=== PATIENT | male | born 1965 | race Caucasian/White ===

== ENCOUNTER 2017-03-01 11:14 | Emergency (ER) | payer OTHER ==
[~2017-03-01] VITALS: Ht 182.9 cm; Wt 115.2 kg
[~2017-03-01 11:14] MED LIST: MECL1TAB42 PO; METF-384 PO; OMEP20TA PO; ONDA4TAB46 PO; TRIA75TA53 PO
[2017-03-01 11:17] VITALS: TEMP 36.3; Ht 182.9 cm; Wt 115.2 kg
--- NOTE | 2017-03-01 11:49 | EMERGENCY ROOM VISIT NOTE ---
ED Visit Note First contact with patient: 11:21 CHIEF COMPLAINT: Eye pain HISTORY OF PRESENT ILLNESS: This 51-year-old male patient presents to the emergency department ambulatory complaining of pain in the left eye . The patient was at work and states that he got hydrated Lyme in his left eye. There has been a constant moderate pain and irritation, redness and tearing in the eye. There is a mild blurring of vision at times and light bothers the eye. The vision has not been decreased over all. The patient does not wear contacts. The patient rates the pain as irritating and 0/10. The patient has flushed the eye with 1 L of water. The patient has not had previous injuries to this eye. The patient states his tetanus is up-to-date. REVIEW OF SYSTEMS: A 6 system review of systems was completed with positives and pertinent negatives listed in the HPI. ALLERGIES: No known drug allergies MEDICATIONS: See nursing notes PMH: GERD, diabetes SOCIAL HISTORY: The patient is employed. He is a smoker PHYSICAL EXAM: Vital Signs: Reviewed Nurse's notes, vital signs stable. Visual acuity 20/20 bilaterally without correction. GENERAL: This is a 51-year-old male, in no acute distress, but who is uncomfortable from the eye problem. Well -developed well-nourished. EYES: The pupils are equal round and reactive to light and accommodation. EOMs are full and without tenderness. There is discharge of clear tears from the left eye which is injected. There is no foreign body visible under the eyelid even after lid eversion. Funduscopic exam reveals no hemorrhages, papilledema, or other abnormalities. No foreign body was seen embedded in the cornea under slit lamp exam. The cornea was clear and no hyphema was seen. Fluorescein uptake was observed with ultraviolet light and reveals uptake over the bottom of the eye around 12:00. EMERGENCY DEPARTMENT COURSE: I examined the patient. Alcaine 2 drops were placed in the patient's left eye. A slit lamp exam was performed as above. Ciloxan two drops was placed in the patient's left eye. I discussed the case with poison control who recommended irrigation and follow-up with ophthalmology if symptoms are severe. I discussed the case with Dr. Pinto who recommends antibiotic drops and follow-up with ophthalmology. The patient was irrigated with 1 L normal saline using a Antolin lens. He will be given Floxin drops and a small prescription for Percocet. He should contact ophthalmology for a follow -up appointment. He should return with worsening symptoms. The patient was discharged home in good condition. DISCHARGE INSTRUCTIONS AND TREATMENT: Use Ciloxan two drops in left eye every two hours while awake for two days; then two drops every four hours while awake for three days. Use Ibuprofen 600 mg every 6 hrs as needed for moderate pain. Percocet 1-2 tablet every 4-6 hours as needed for worse pain. No driving or alcohol use with Percocet and do not take with Tylenol. Contact ophthalmology today for a follow-up appointment in 24-48 hours Return with worsening symptoms Problem List Medical Problems: (1) Diabetes Status: Chronic (2) Hypertension Status: Chronic (3) Vertigo Status: Chronic (4) Vomiting Status: Chronic Surgical Problems: (1) History of appendectomy Status: Resolved (2) Hx of cholecystectomy Status: Resolved Current/Historical Medications Scheduled Atorvastatin (Lipitor), 10 MG PO DAILY Metformin Hcl (Glucophage), 1,000 MG PO BID Omeprazole (Omeprazole), 1 TAB PO DAILY Triamterene/Hctz (Triamterene/Hctz 37.5-25MG), 1 TAB PO DAILY Scheduled PRN Meclizine Hcl (Meclizine Hcl), 1 TAB PO TID PRN for DIZZINESS Oxycodone/Acetaminophen 5MG/325MG (Percocet 5MG/325MG), 1 TAB PO Q4H PRN for Pain Allergies Coded Allergies: No Known Allergies (Unverified , 03/01/17) Vital Signs Date Time Temp Pulse Resp B/P Pulse Ox O2 Delivery O2 Flow Rate FiO2 03/01/17 13:24 84 16 155/74 97 03/01/17 11:17 36.3 92 18 176/107 96 Room Air Medications Administered Medications (Trade) Dose Ordered Sig/Ha Route Start Time Stop Time Status Last Admin Dose Admin Proparacaine HCl (Alcaine 0.5% Oph Soln) 225 drops STK-MED ONCE .ROUTE 03/01/17 12:01 03/01/17 12:02 DC 03/01/17 11:58 225 DROPS Ciprofloxacin HCl (Ciprofloxacin 0.3% Op Soln) 2 drops NOW ONCE OP 03/01/17 13:15 03/01/17 13:16 DC 03/01/17 13:19 2 DROPS Departure Information Impression Primary Impression: Corneal abrasion Additional Impression: Chemical keratoconjunctivitis Dispostion Home / Self-Care Condition GOOD Prescriptions Oxycodone/Acetaminophen 5MG/325MG (PERCOCET 5MG/325MG) Tab 1 TAB PO Q4H Y for Pain, #18 TAB For Initial Treatment Prov: Nina Figueroa PA-C 03/01/17 Referrals Yocasta Ncie M.D. (PCP) Yifan Pinto D.O. Forms HOME CARE DOCUMENTATION FORM, IMPORTANT VISIT INFORMATION, WORK / SCHOOL INSTRUCTIONS Patient Instructions Corneal Injury, My [facility] [employer] Additional Instructions Use Ciloxin two drops in left eye every two hours while awake for two days; then two drops every four hours while awake for three days. Use Ibuprofen 600 mg every 6 hrs as needed for moderate pain. Percocet 1-2 tablet every 4-6 hours as needed for worse pain. No driving or alcohol use with Percocet and do not take with Tylenol. Contact ophthalmology today for a follow-up appointment in 24-48 hours Return with worsening symptoms Work Instructions Return To Work: 3 days Problem Qualifiers Primary Impression: Corneal abrasion Encounter type: initial encounter Laterality: left Qualified Codes: S05.02XA - Injury of conjunctiva and corneal abrasion without foreign body, left eye, initial encounter Additional Impression: Chemical keratoconjunctivitis Laterality: left Qualified Codes: H16.292 - Other keratoconjunctivitis, left eye
[2017-03-01] MEDS ORDERED: PROPARACAINE HCL 0.5% OP SOLN 15 ML BTL ONE (12:01)
[2017-03-01] MEDS ORDERED: TRIATAB3 PO (12:09)
[2017-03-01] MEDS ORDERED: ATOR10TA82 PO (12:09)
[2017-03-01] MEDS ORDERED: OXYC-57 PO (13:14)
[2017-03-01] MEDS ORDERED: CIPROFLOXACIN HCL 0.3% OP SOLN 2.5 ML BTL OP ONE (13:15)
[2017-03-01 13:24] VITALS: BP 155/74; PULSE 84; O2SAT 97
== END 2017-03-01 13:25 | disposition home or self-care (01) ==
LOC: C.EDB 11:15 → C.EDD 13:25
DX: S05.02XA Injury of conjunctiva and corneal abrasion without foreign body, left eye, initial encounter (principal); T26.82XA Corrosions of other specified parts of left eye and adnexa, initial encounter; Y99.0 Civilian activity done for income or pay; X58.XXXA Exposure to other specified factors, initial encounter; E11.9 Type 2 diabetes mellitus without complications; F17.200 Nicotine dependence, unspecified, uncomplicated; I10 Essential (primary) hypertension; K21.9 Gastro-esophageal reflux disease without esophagitis

== ENCOUNTER → 2017-05-19 | Outpatient (CLI) | payer OTHER ==
[~2017-05-19] MED LIST changes: +ATOR10TA88 PO; -ONDA4TAB46 PO; +OXYC-57 PO; -TRIA75TA53 PO; +TRIATAB3 PO
[2017-05-19 13:00] LABS: ESTIMATED AVERAGE GLUCOSE 131 mg/dl; HA1C FLAG Normal (Normal)
[2017-05-19 13:07] LABS: ALT/SGPT 27 U/L (12-78); BLOOD UREA NITROGEN 13 mg/dl (7-18); CALCIUM 8.5 mg/dl (8.5-10.1); CARBON DIOXIDE 26 mmol/L (21-32); CHLORIDE 105 mmol/L (98-107); CHOLESTEROL 185 mg/dl (0-200); CREATININE 0.95 mg/dl (0.60-1.40); GLUCOSE 114 mg/dl (70-99); SODIUM 138 mmol/L (136-145)
[2017-05-19 13:10] LABS: ALB/GLOB RATIO 1.1 (0.9-2); ALKALINE PHOSPHATASE 89 U/L (45-117); AST/SGOT 12 U/L (15-37); CHOLESTEROL/HDL RATIO 5.3; HDL CHOLESTEROL 35 mg/dl; LDL CHOLESTEROL CALCULATED 117 mg/dl; TRIGLYCERIDES 163 mg/dl (0-150); VERY LOW DENSITY LIPOPROT CALC 33 mg/dl
== END | disposition home or self-care (01) ==
LOC: C.LABPVFM 07:39
PROVIDERS: ATTEND Family Medicine
DX: E78.5 Hyperlipidemia, unspecified (principal); K21.9 Gastro-esophageal reflux disease without esophagitis; I10 Essential (primary) hypertension; Z12.11 Encounter for screening for malignant neoplasm of colon

== ENCOUNTER 2017-08-20 15:58 | Emergency (ER) | payer OTHER ==
[~2017-08-20] VITALS: Ht 182.9 cm; Wt 112.5 kg
[2017-08-20 16:11] VITALS: TEMP 36.9; Ht 182.9 cm; Wt 112.5 kg
--- NOTE | 2017-08-20 17:25 | DIAGNOSTIC IMAGING REPORT ---
R KNEE 3 VIEWS HISTORY: 52 years-old Male R knee pain, tripped of cord onto knee acute right knee pain status post trauma and fall. COMPARISON: None available TECHNIQUE: 3 views of the right knee FINDINGS: Mild tricompartmental osteoarthritis is most pronounced within the patellofemoral joint. There is spurring about the superior patella at the quadriceps insertion site. There is moderate to extensive soft tissue swelling about the knee with small joint effusion. No opaque foreign body. IMPRESSION: 1. Mild tricompartmental osteoarthritis without acute fracture or dislocation. 2. Moderate to extensive soft tissue swelling about the knee with small joint effusion. The above report was generated using voice recognition software. It may contain grammatical, syntax or spelling errors. Electronically signed by: Grant Bain M.D. 08/20/2017 5:24 PM Dictated Date/Time: 08/20/2017 5:22 PM
[2017-08-20 17:56] VITALS: BP 145/107; PULSE 100; O2SAT 96
--- NOTE | 2017-08-21 00:58 | EMERGENCY ROOM VISIT NOTE ---
ED Visit Note First contact with patient: 16:16 Chief Complaint: I tripped and fell and injured my right knee. History of Present Illness: Mr. Gama is a 52-year-old white male who ambulates into the ED with a limp and accompanied by his complaining of right anterior knee pain. 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 He denies any lightheadedness or dizziness before the fall and at the time of fall he did not strike his head. Currently he is complaining of anterior right knee pain over the distal femur and patella. He describes the pain as a sharp and throbbing sensation. He rates his discomfort 6/10. The pain is nonradiating. The pain worsens with the last few degrees of extension, flexion beyond 80 and palpation of the anterior knee. He has not identified any alleviating factors related to the pain. He has not taken medications for pain prior to arrival at the hospital. Associated with his pain he has noted moderate swelling over the anterior knee and has an abrasion just above his patella and over his second toe from his fall. He denies any back pain, hip pain, proximal thigh pain, lower leg pain, ankle pain, foot pain, leg weakness/numbness/tingling. Additionally he denies any previous significant injuries or surgeries to his knee. Review of Systems: As noted above in history of present illness. Past Medical History: Diabetes, hypertension, asthma, abdominal hernia, status post unspecified right elbow surgery and unspecified back surgery. Current Medications: Glucophage, Lipitor, meclizine, omeprazole, Triamterene/ HCTZ. Allergies to Medications: Patient denies. Social History: Patient is currently employed; he lives with his and feels safe in his home environment; he denies tobacco use and admits to alcohol use. Tetanus Immunization Status: Patient reports up-to-date. Physical Examination: Vital Signs: Date Time Temp Pulse Resp B/P (MAP) Pulse Ox O2 Delivery O2 Flow Rate FiO2 08/20/17 17:56 100 20 145/107 96 08/20/17 16:11 36.9 119 20 150/84 95 Room Air GENERAL: 52-year-old male in mild distress due to pain, nontoxic-appearing, afebrile and hemodynamically stable. NEUROLOGICAL: Awake, alert and oriented to person, place and time. Answering questions appropriately and following commands. SKIN: Warm, dry and pink. Right Knee: Patient has a nickel-sized superficial abrasion over the anterior superior aspect of the knee no active bleeding. Right foot: Small 2-3 mm abrasion over the dorsal aspect of the second toe without active bleeding. RIGHT LOWER EXTREMITY: No gross bony deformity. No shortening or malrotation. No tenderness in the hip, proximal thigh, lower leg, ankle or foot. Patient has a large contusion/hematoma just superior and slightly lateral to the patella with an associated abrasion is noted above. The contusion/hematoma measures approximately 6-7 cm. His knee examination shows this large hematoma but he has no bony or underlying muscular tenderness. There is no ligamentous laxity of the cruciate or collateral ligaments. He does have moderate decreased range of motion motion in the last few degrees of extension but only has about 80 of flexion because of pain and swelling. Because of his apprehension a Rafa's test was not able to be performed. Throughout the lower leg there is no tenderness and there is no swelling. Distal pulses, capillary refill and sensation is intact. There is no bulging of the compartments of the lower leg. ED Course: Patient is assessed as noted above. Patient's medication list was reviewed. Patient was offered pain medication and refused but he was given ice for pain and comfort. Right Knee X-Rays: Were read by myself and the radiologist and shows mild tricompartmental osteoarthritis without fracture dislocation. Moderate to extensive soft tissue swelling about the knee with a small joint effusion. Patient had an Santiago bandage wrapped around his contused area for compression. He was offered nonweight bearing crutches but reported he had crutches at home that he did use for previous lower extremity injury. Patient was educated about today's findings and instructed on his treatment plan ; he verbalized understanding and agreement with this plan. Clinical Impression: Contusion/hematoma of the right knee. Knee and toe abrasion. Status post fall. Disposition: Patient discharged home in stable condition accompanied by his ; prior to departure he was reassessed and subjectively reported he was feeling better and rated his discomfort 3/10. Plan: Patient was encouraged to alternate ibuprofen and acetaminophen as needed for pain every 3 hours. Patient was encouraged use ice over areas of pain and swelling 4-5 times a day for 20-30 minutes. Patient was encouraged use Santiago bandage for compression and his crutches at home for nonweightbearing ambulation for 3-6 days or until pain free. Comfort measures, wound care and signs of infection were discussed with the patient. Patient was encouraged to follow-up with orthopedic physician if no better in 7- 10 days. Patient was signed off of work for 3 days. Patient was encouraged to follow-up with family physician or return to the ED for any signs of infection, uncontrolled pain or any new/concerning symptoms.
== END 2017-08-20 17:58 | disposition home or self-care (01) ==
LOC: C.EDB 15:59 → C.EDD 17:58
DX: S80.01XA Contusion of right knee, initial encounter (principal); S80.211A Abrasion, right knee, initial encounter; W01.0XXA Fall on same level from slipping, tripping and stumbling without subsequent striking against object, initial encounter; I10 Essential (primary) hypertension; E11.9 Type 2 diabetes mellitus without complications; J45.909 Unspecified asthma, uncomplicated; Z79.899 Other long term (current) drug therapy; Z98.890 Other specified postprocedural states

== ENCOUNTER 2017-12-02 11:45 | Inpatient (IN) | payer OTHER ==
[2017-12-02] VITALS (18 sets, daily range): BP systolic 94–158; BP diastolic 60–87; PULSE 84–170; TEMP 36.6–37; O2SAT 91–97; Ht 182.9 cm; Wt 106.2 kg
[~2017-12-02] VITALS: Ht 182.9 cm; Wt 106.2 kg
[~2017-12-02 11:45] MED LIST changes: +ATOR10TA82 PO; -ATOR10TA88 PO; -OXYC-57 PO
[2017-12-02] MEDS ORDERED: METOPROLOL TARTRATE 1 MG/ML VIAL IV STA (12:01)
[2017-12-02] MEDS ORDERED: ASPIRIN 324 MG CHEW PO STA (12:01)
[2017-12-02] MEDS ORDERED: DILTIAZEM BOLUS / DRIP IV STA ×2 (12:06→13:19)
[2017-12-02] MEDS ORDERED: DILTIAZEM HCL 5 MG/ML 5 ML VIAL IV STA ×2 (12:06)
[2017-12-02] MEDS ORDERED: ONDANSETRON INJ 2 MG/ML 2 ML VIAL IV STA (12:07)
--- NOTE | 2017-12-02 12:13 | EMERGENCY ROOM VISIT NOTE ---
History Report prepared by Sheryl: Aris George Under the Supervision of: Dr. Christiano Costa M.D. 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 He notes that his heart has been racing. His heart rate is currently 183. He notes diaphoresis, cough, nausea, vomiting, and shortness of breath. The patient states that he has used his inhaler more often than usual yesterday. He has a history of DM, HTN, and asthma. He does not see a director of outreach. He has never had a stress test. He has a family history of myocardial infarction. He denies a history of smoking. He denies any chest pain. 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 A total of 10 systems reviewed and were otherwise negative. Past Medical & Surgical Medical Problems: (1) Asthma (2) Chemical keratoconjunctivitis (3) Corneal abrasion (4) Diabetes (5) Hypertension (6) New onset a-fib (7) Vertigo (8) Vomiting Surgical Problems: (1) History of appendectomy (2) Hx of cholecystectomy Family History Diabetes mellitus Heart disease Lung disease Social History Smoking Status: Never Smoker Smokeless Tobacco Use: No Alcohol Use: occasionally Drug Use: none Marital Status: Housing Status: lives with family Occupation Status: employed Current/Historical Medications Scheduled Atorvastatin (Lipitor), 1 TAB PO DAILY Metformin Hcl (Glucophage), 1,000 MG PO BID Omeprazole (Omeprazole), 1 TAB PO DAILY Triamterene/Hctz (Triamterene/Hctz 37.5-25MG), 1 TAB PO DAILY Scheduled PRN Albuterol Hfa (Ventolin Hfa), 1-2 PUFFS INH Q6H PRN for SOB/Wheezing Meclizine Hcl (Meclizine Hcl), 1 TAB PO TID PRN for DIZZINESS Allergies Coded Allergies: No Known Allergies (Unverified , 12/02/17) Physical Exam Vital Signs Date Time Temp Pulse Resp B/P (MAP) Pulse Ox O2 Delivery O2 Flow Rate FiO2 12/02/17 13:00 129 100/62 95 Room Air 12/02/17 12:56 114 118/79 93 Room Air 12/02/17 12:52 119 12/02/17 12:44 114 125/76 95 Room Air 12/02/17 12:31 127 131/76 94 Room Air 12/02/17 12:25 102/77 12/02/17 12:21 120 15 94 12/02/17 12:16 122/72 12/02/17 12:15 112 18 92 12/02/17 12:11 97 Room Air 12/02/17 12:11 97 Room Air 12/02/17 12:10 99 16 127/77 94 12/02/17 12:05 170 22 149/98 12/02/17 12:04 180 12/02/17 12:01 145/96 12/02/17 11:51 36.4 80 20 128/77 95 Room Air Physical Exam GENERAL: Patient is a healthy-appearing well-nourished male. HEAD: Normocephalic atraumatic EYES: Ocular movements intact pupils equal and react to light OROPHARYNX mucous membranes are moist no exudates present no erythema or edema present NECK: Supple no nuchal rigidity CHEST: Good equal expansion LUNGS: Clear and equal to auscultation CARDIAC: Normal S1 and S2 ABDOMEN: Soft nontender no guarding BACK: No CVA tenderness EXTREMITIES: No pain upon palpation normal muscle strength in all groups no clubbing cyanosis or edema NEURO: Patient is following commands and answering questions appropriately. Alert and oriented x3 Cranial Nerves 2-12 grossly intact Medical Decision & Procedures ER Provider Diagnostic Interpretation: Radiology results as stated below per my review and radiologist interpretation: CHEST ONE VIEW PORTABLE CLINICAL HISTORY: CHEST PAIN COMPARISON STUDY: 01/10/2016 FINDINGS: Mild cardiomegaly. Prominent pulmonary vasculature. Diaphragms are smooth. No focal infiltrate. IMPRESSION: Findings suggesting pulmonary vascular congestion with no evidence for [place] pulmonary edema. No focal infiltrate. The above report was generated using voice recognition software. It may contain grammatical, syntax or spelling errors. Electronically signed by: Kerwin Montes De Oca M.D. 12/02/2017 12:18 PM Dictated Date/Time: 12/02/2017 12:17 PM Laboratory Results 12/02/17 12:02 Red Blood Count 5.58, Mean Corpuscular Volume 77.6, Mean Corpuscular Hemoglobin 26.0, Mean Corpuscular Hemoglobin Concent 33.5, Mean Platelet Volume 10.6, Neutrophils (%) (Auto) 86.4, Lymphocytes (%) (Auto) 8.4, Monocytes (%) (Auto) 4.4, Eosinophils (%) (Auto) 0.4, Basophils (%) (Auto) 0.1, Neutrophils # (Auto) 11.66, Lymphocytes # (Auto) 1.13, Monocytes # (Auto) 0.59, Eosinophils # (Auto) 0.06, Basophils # (Auto) 0.02 12/02/17 12:02 Test 12/02/17 12:02 12/02/17 12:09 12/02/17 12:21 White Blood Count 13.50 K/uL (4.8-10.8) Red Blood Count 5.58 M/uL (4.7-6.1) Hemoglobin 14.5 g/dL (14.0-18.0) Hematocrit 43.3 % (42-52) Mean Corpuscular Volume 77.6 fL (80-100) Mean Corpuscular Hemoglobin 26.0 pg (25-34) Mean Corpuscular Hemoglobin Concent 33.5 g/dl (32-36) Platelet Count 333 K/uL (130-400) Mean Platelet Volume 10.6 fL (7.4-10.4) Neutrophils (%) (Auto) 86.4 % Lymphocytes (%) (Auto) 8.4 % Monocytes (%) (Auto) 4.4 % Eosinophils (%) (Auto) 0.4 % Basophils (%) (Auto) 0.1 % Neutrophils # (Auto) 11.66 K/uL (1.4-6.5) Lymphocytes # (Auto) 1.13 K/uL (1.2-3.4) Monocytes # (Auto) 0.59 K/uL (0.11-0.59) Eosinophils # (Auto) 0.06 K/uL (0-0.5) Basophils # (Auto) 0.02 K/uL (0-0.2) RDW Standard Deviation 42.5 fL (36.4-46.3) RDW Coefficient of Variation 15.1 % (11.5-14.5) Immature Granulocyte % (Auto) 0.3 % Immature Granulocyte # (Auto) 0.04 K/uL (0.00-0.02) Prothrombin Time 10.8 SECONDS (9.0-12.0) Prothromb Time International Ratio 1.0 (0.9-1.1) Activated Partial Thromboplast Time 28.8 SECONDS (21.0-31.0) Partial Thromboplastin Ratio 1.1 Est Creatinine Clear Calc Drug Dose 99.9 ml/min Estimated GFR () 86.7 Estimated GFR (Non- 74.8 BUN/Creatinine Ratio 16.1 (10-20) Calcium Level 8.6 mg/dl (8.5-10.1) Total Bilirubin 0.6 mg/dl (0.2-1) Direct Bilirubin 0.2 mg/dl (0-0.2) Aspartate Amino Transf (AST/SGOT) 8 U/L (15-37) Alanine Aminotransferase (ALT/SGPT) 28 U/L (12-78) Alkaline Phosphatase 96 U/L (45-117) Total Creatine Kinase 48 U/L (39-308) Creatine Kinase MB 0.6 ng/ml (0.5-3.6) Creatine Kinase MB Ratio 1.3 (0-3.0) Pro-B-Type Natriuretic Peptide 1740 pg/ml (0-900) Total Protein 7.1 gm/dl (6.4-8.2) Albumin 3.6 gm/dl (3.4-5.0) Lipase 64 U/L (73-393) Bedside Hemoglobin 15.3 g/dl (14.0-18.0) Bedside Hematocrit 45 % (42-52) Bedside Sodium 138 mEq/L (135-144) Bedside Potassium 4.1 mEq/L (3.3-5.0) Bedside Chloride 102 mEq/L (101-112) Bedside Total CO2 22 mEq/l (24-31) Anion Gap 19.0 mmol/L (16-25) Bedside Blood Urea Nitrogen 19 mg/dl (7-18) Bedside Creatinine 0.9 mg/dl (0.6-1.3) Bedside Glucose (other) 147 mg/dl (70-99) Bedside Ionized Calcium (Estefania) 1.13 mmol/l (1.12-1.32) Influenza Type A Antigen Neg for Influ A (NEG) Influenza Type B Antigen Neg for Influ B (NEG) Labs reviewed by ED physician. Medications Administered Medications (Trade) Dose Ordered Sig/Ha Route Start Time Stop Time Status Last Admin Dose Admin Aspirin (Aspirin Chew) 324 mg NOW STAT PO 12/02/17 12:01 12/02/17 12:05 DC 12/02/17 12:12 324 MG Diltiazem HCl (Cardizem Inj) 39 mg NOW STAT IV 12/02/17 12:06 12/02/17 12:08 DC 12/02/17 12:28 39 MG Diltiazem HCl (Cardizem Inj) 28 mg NOW STAT IV 12/02/17 12:06 12/02/17 12:08 DC 12/02/17 12:15 28 MG Ondansetron HCl (Zofran Inj) 4 mg NOW STAT IV 12/02/17 12:07 12/02/17 12:09 DC 12/02/17 12:07 4 MG Diltiazem HCl 125 mg/Dextrose 125 ml @ 0 mls/hr Q0M PRN IV 12/02/17 12:30 12/02/17 18:39 DC 12/02/17 12:35 5 MLS/HR ECG Indication: palpitations Rate (beats per minute): 163 Rhythm: atrial fibrillation, other (with RVR) Findings: T-wave inversion (Inferior), no acute ischemic change ED Course 1158: Past medical records reviewed. The patient was evaluated in room C4. A complete history and physical examination was performed. 1201: Ordered Metoprolol Tartrate 15 mg IV ans Aspirin 324 mg PO 1206: Ordered Cardizem 28 mg IV Cardizem 39 mg IV and Cardizem Bolus/Drip 1 ea IV 1207: Ordered Zofran 4 mg IV 1230: Ordered Diltiazem, HCl 125 mg/Dextrose 125 ml @ 0 mls/hr IV 1250: I reassessed the patient at this time. He is feeling better and resting comfortably. I discussed the results and treatment plan with the patient. I answered all pertaining questions that he had. He expressed understanding and verbalized agreement. The patient will be further evaluated. 1251: I spoke with Dr. Harding, hospitalist. We discussed the patients case. The patient will be evaluated by the [facility] for further management. Medical Decision Prior records/ancillary studies reviewed. Triage Nursing notes reviewed. The patient's history was concerning for chest pain. Differential diagnosis: Etiologies such as cardiac ischemia, aortic dissection, pulmonary embolism, pneumonia, pneumothorax, musculoskeletal, infections, pericarditis, myocarditis , esophageal rupture, gastrointestinal, as well as others were entertained. This is a 52-year-old male who presents emergency department complaining of systemic complaining of weakness. The patient reports he has been short of breath and weak for the past 3 days. He has been using his albuterol inhaler. The patient was found to have a heart rate of 180 therefore he was given multiple Cardizem boluses and then placed on a Cardizem drip. He remains in a new onset atrial fibrillation. Based on these findings I did discuss the case with the hospitalist service who agreed to admit the patient. Patient was in agreement with the treatment plan. Medication Reconcilliation Current Medication List: was personally reviewed by me Blood Pressure Screening Patient's blood pressure: Normal blood pressure Consults Time Called: 1240 Consulting Physician: Dr. Harding, hospitalist Returned Call: 1251 I spoke with Phillip Bishop, hospitalist. We discussed the patients case. The patient will be evaluated by the [facility] for further management. Impression Primary Impression: Atrial fibrillation with RVR Critical Care I have personally spent greater than 30 minutes of critical care time in the direct management of this patient. This includes bedside care, interpretation of diagnostic studies, and testing, discussion with consultants, patient, and family members, and other required patient management activities. This 30 minutes is in excess of all separately billable procedures. Scribe Attestation The scribe's documentation has been prepared under my direction and personally reviewed by me in its entirety. I confirm that the note above accurately reflects all work, treatment, procedures, and medical decision making performed by me. Departure Information Dispostion Being Evaluated By Hospitalist Referrals Yocasta Nice M.D. (PCP) Patient Instructions My [facility]
[2017-12-02 12:19] LABS: BASO % 0.1 %; BASO ABS # 0.02 K/uL (0-0.2); EOS % 0.4 %; EOS ABS # 0.06 K/uL (0-0.5); HEMATOCRIT 43.3 % (42-52); HEMOGLOBIN 14.5 g/dL (14.0-18.0); IG# 0.04 K/uL (0.00-0.02); LYMPH % 8.4 %; LYMPH ABS # 1.13 K/uL (1.2-3.4); MEAN CELL VOLUME 77.6 fL (80-100); MEAN CORPUSCULAR HGB CONC 33.5 g/dl (32-36); MEAN PLATELET VOLUME 10.6 fL (7.4-10.4); MONO % 4.4 %; MONO ABS # 0.59 K/uL (0.11-0.59); NEUT % 86.4 %; NEUT ABS # 11.66 K/uL (1.4-6.5); PLATELET COUNT 333 K/uL (130-400); RED CELL DISTRIBUTION WIDTH CV 15.1 % (11.5-14.5); RED CELL DISTRIBUTION WIDTH SD 42.5 fL (36.4-46.3)
[2017-12-02 12:20] LABS: ISTAT CREATININE 0.9 mg/dl (0.6-1.3); ISTAT IONIZED CALCIUM 1.13 mmol/l (1.12-1.32); ISTAT POTASSIUM 4.1 mEq/L (3.3-5.0)
--- NOTE | 2017-12-02 12:20 | DIAGNOSTIC IMAGING REPORT ---
CHEST ONE VIEW PORTABLE CLINICAL HISTORY: CHEST PAIN COMPARISON STUDY: 01/10/2016 FINDINGS: Mild cardiomegaly. Prominent pulmonary vasculature. Diaphragms are smooth. No focal infiltrate. IMPRESSION: Findings suggesting pulmonary vascular congestion with no evidence for [place] pulmonary edema. No focal infiltrate. The above report was generated using voice recognition software. It may contain grammatical, syntax or spelling errors. Electronically signed by: Kerwin Montes De Oca M.D. 12/02/2017 12:18 PM Dictated Date/Time: 12/02/2017 12:17 PM
[2017-12-02] MEDS ORDERED: DILTIAZEM HCL INJ 125 MG in DEXTROSE 5% 100ML IV PRN (12:30)
[2017-12-02 12:37] LABS: ALBUMIN 3.6 gm/dl (3.4-5.0); ALT/SGPT 28 U/L (12-78); AST/SGOT 8 U/L (15-37); BLOOD UREA NITROGEN 18 mg/dl (7-18); CALCIUM 8.6 mg/dl (8.5-10.1); CARBON DIOXIDE 23 mmol/L (21-32); CREATININE 1.13 mg/dl (0.60-1.40); GLUCOSE 141 mg/dl (70-99); LIPASE 64 U/L (73-393); PTT PATIENT 28.8 SECONDS (21.0-31.0); SODIUM 136 mmol/L (136-145)
[2017-12-02 12:43] LABS: ALKALINE PHOSPHATASE 96 U/L (45-117); CKMB 0.6 ng/ml (0.5-3.6); TOTAL PROTEIN 7.1 gm/dl (6.4-8.2)
[2017-12-02 12:57] LABS: INFLUENZA B ANTIGEN Neg for Influ B (NEG)
[2017-12-02] MEDS ORDERED: ATOR-54 PO (12:57)
[2017-12-02] MEDS ORDERED: VNTHFA/IN INH (12:57)
[2017-12-02] MEDS ORDERED: ALBUTEROL HFA 8 GM INHALER INH PRN (13:30)
[2017-12-02] MEDS ORDERED: ONDANSETRON INJ 2 MG/ML 2 ML VIAL IV PRN (13:30)
[2017-12-02] MEDS ORDERED: ACETAMINOPHEN 325 MG TAB PO PRN (13:30)
[2017-12-02] MEDS ORDERED: MECLIZINE HCL 12.5 MG TAB PO PRN (13:30)
[2017-12-02] MEDS ORDERED: MAGNESIUM HYDROXIDE SUSP 30 ML UDC PO PRN (13:30)
--- NOTE | 2017-12-02 13:37 | History and Physical ---
History & Physical Date & Time of Service: Dec 02, 2017 at 13:24 Chief Complaint: High Blood Pressure,Heart Racing Primary Care Physician: Yocasta Nice M.D. History of Present Illness Source: patient 52 y/o M c/o palpitations. Pt states he has felt sluggish and tired for the last week. He has felt like his heart was racing most of this week, at times "like it was going to pound out of my chest". He has had SOB that he thought was his asthma. He tried using his inhaler but this did not help. 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 He started his work day and was so tired and having such difficulty thinking and moving that he went home less than 2 hours into his shift. He pulled over to sleep on the way home for about an hour. He then went home to sleep the rest of the day. He had 3 episodes of emesis during all of this yesterday and once this AM. Pt notes that all week he has had a chest pressure that would relieve with belching. Pt feels he has been having fatigue and occasional palpitations for about the last 6 months, but it would come and go. He would have days that he felt his usual. The palpitations were not long lasting and were not as intense as over this past week. No prior hx of afib. Pt states his says that he snores. This has been a longstanding issue. He does not feel that he wakes at night. Pt denies fever, abd pain, n/v/c/d, LE pain or swelling. Pt states he feels much improved with the improved HR. Past Medical/Surgical History Medical Problems: (1) Asthma Status: Chronic (2) Chemical keratoconjunctivitis Status: Resolved (3) Corneal abrasion Status: Resolved (4) Diabetes Status: Chronic (5) Hypertension Status: Chronic (6) Vertigo Status: Chronic (7) Vomiting Status: Chronic Surgical Problems: (1) History of appendectomy Status: Resolved (2) Hx of cholecystectomy Status: Resolved Hyperlipidemia Family History Family history was reviewed; no changes noted. CVA, ND, HTN Social History Smoking Status: Never Smoker Smokeless Tobacco Use: No Alcohol Use: occasionally (1 beer a month) Drug Use: none Marital Status: Occupational Status: employed Multi-Drug Resistant Organisms History of MDRO: No Allergies Coded Allergies: No Known Allergies (Unverified , 12/02/17) Home Medications Scheduled Atorvastatin (Lipitor), 1 TAB PO DAILY Metformin Hcl (Glucophage), 1,000 MG PO BID Omeprazole (Omeprazole), 1 TAB PO DAILY Triamterene/Hctz (Triamterene/Hctz 37.5-25MG), 1 TAB PO DAILY Scheduled PRN Albuterol Hfa (Ventolin Hfa), 1-2 PUFFS INH Q6H PRN for SOB/Wheezing Meclizine Hcl (Meclizine Hcl), 1 TAB PO TID PRN for DIZZINESS Review of Systems Pertinent positives and negatives reviewed in HPI--all others negative Physical Exam Vital Signs Date Time Temp Pulse Resp B/P (MAP) Pulse Ox O2 Delivery O2 Flow Rate FiO2 12/02/17 13:00 129 100/62 95 Room Air 12/02/17 12:56 114 118/79 93 Room Air 12/02/17 12:52 119 12/02/17 12:44 114 125/76 95 Room Air 12/02/17 12:31 127 131/76 94 Room Air 12/02/17 12:25 102/77 12/02/17 12:21 120 15 94 12/02/17 12:16 122/72 12/02/17 12:15 112 18 92 12/02/17 12:11 97 Room Air 12/02/17 12:11 97 Room Air 12/02/17 12:10 99 16 127/77 94 12/02/17 12:05 170 22 149/98 12/02/17 12:04 180 12/02/17 12:01 145/96 12/02/17 11:51 36.4 80 20 128/77 95 Room Air General Appearance: WD/WN, no apparent distress Head: normocephalic, atraumatic Eyes: normal inspection, EOMI, sclerae normal Respiratory/Chest: normal breath sounds, no respiratory distress Cardiovascular: normal peripheral pulses, + irregularly irregular Abdomen/GI: non tender, soft Extremities/Musculoskelatal: no calf tenderness, no pedal edema Neurologic/Psych: alert, normal mood/affect, oriented x 3 Skin: normal color, warm/dry Diagnostics Laboratory Results Results Past 24 Hours Test 12/02/17 12:02 12/02/17 12:09 12/02/17 12:21 Range/Units White Blood Count 13.50 4.8-10.8 K/uL Red Blood Count 5.58 4.7-6.1 M/uL Hemoglobin 14.5 14.0-18.0 g/dL Hematocrit 43.3 42-52 % Mean Corpuscular Volume 77.6 80-100 fL Mean Corpuscular Hemoglobin 26.0 25-34 pg Mean Corpuscular Hemoglobin Concent 33.5 32-36 g/dl Platelet Count 333 130-400 K/uL Mean Platelet Volume 10.6 7.4-10.4 fL Neutrophils (%) (Auto) 86.4 % Lymphocytes (%) (Auto) 8.4 % Monocytes (%) (Auto) 4.4 % Eosinophils (%) (Auto) 0.4 % Basophils (%) (Auto) 0.1 % Neutrophils # (Auto) 11.66 1.4-6.5 K/uL Lymphocytes # (Auto) 1.13 1.2-3.4 K/uL Monocytes # (Auto) 0.59 0.11-0.59 K/uL Eosinophils # (Auto) 0.06 0-0.5 K/uL Basophils # (Auto) 0.02 0-0.2 K/uL RDW Standard Deviation 42.5 36.4-46.3 fL RDW Coefficient of Variation 15.1 11.5-14.5 % Immature Granulocyte % (Auto) 0.3 % Immature Granulocyte # (Auto) 0.04 0.00-0.02 K/uL Prothrombin Time 10.8 9.0-12.0 SECONDS Prothromb Time International Ratio 1.0 0.9-1.1 Activated Partial Thromboplast Time 28.8 21.0-31.0 SECONDS Partial Thromboplastin Ratio 1.1 Sodium Level 136 136-145 mmol/L Potassium Level 4.0 3.5-5.1 mmol/L Chloride Level 105 98-107 mmol/L Carbon Dioxide Level 23 21-32 mmol/L Anion Gap 8.0 19.0 16-25 mmol/L Blood Urea Nitrogen 18 7-18 mg/dl Creatinine 1.13 0.60-1.40 mg/dl Est Creatinine Clear Calc Drug Dose 99.9 ml/min Estimated GFR () 86.7 Estimated GFR (Non- 74.8 BUN/Creatinine Ratio 16.1 10-20 Random Glucose 141 70-99 mg/dl Calcium Level 8.6 8.5-10.1 mg/dl Total Bilirubin 0.6 0.2-1 mg/dl Direct Bilirubin 0.2 0-0.2 mg/dl Aspartate Amino Transf (AST/SGOT) 8 15-37 U/L Alanine Aminotransferase (ALT/SGPT) 28 12-78 U/L Alkaline Phosphatase 96 45-117 U/L Total Creatine Kinase 48 39-308 U/L Creatine Kinase MB 0.6 0.5-3.6 ng/ml Creatine Kinase MB Ratio 1.3 0-3.0 Troponin I < 0.015 0-0.045 ng/ml Pro-B-Type Natriuretic Peptide 1740 0-900 pg/ml Total Protein 7.1 6.4-8.2 gm/dl Albumin 3.6 3.4-5.0 gm/dl Lipase 64 73-393 U/L Bedside Hemoglobin 15.3 14.0-18.0 g/dl Bedside Hematocrit 45 42-52 % Bedside Sodium 138 135-144 mEq/L Bedside Potassium 4.1 3.3-5.0 mEq/L Bedside Chloride 102 101-112 mEq/L Bedside Total CO2 22 24-31 mEq/l Bedside Blood Urea Nitrogen 19 7-18 mg/dl Bedside Creatinine 0.9 0.6-1.3 mg/dl Bedside Glucose (other) 147 70-99 mg/dl Bedside Ionized Calcium (Estefania) 1.13 1.12-1.32 mmol/l Influenza Type A Antigen Neg for Influ A NEG Influenza Type B Antigen Neg for Influ B NEG Diagnostic Radiology CHF EKG afib with RVR Impression Assessment and Plan 52 y/o M who was admitted on 12/02 with afib with RVR Afib with RVR: uncertain onset, but at least 1 week--possibly the last 6 months Feeling improved with improving HR Still with some elevations and afib noted, but improving Continue cardizem drip Start lovenox drip, will need to determine insurance coverage for terminologist anticoagulation ECHO pending TSH pending Trop neg, serials pending Possibly related to undx HORACIO, overnight pulse ox pending and will need formal sleep study as outpt HTN: continue home meds DM: continue home meds A1c pending Hyperlipidemia: continue home meds Lipid panel pending Asthma: no current exacerbation continue home PRN inhaler Vertigo: no current exacerbation continue home PRN med Other: Full code DM diet Heparin for DVT proph Level of Care Telemetry Resuscitation Status FULL RESUSCITATION VTE Prophylaxis VTE Risk Assessment Done? Y/N: Yes Risk Level: Low
[2017-12-02] MEDS: HEPARIN 25,000 UNIT/500ML D5W 500 ML IV PRN (16:24)
[2017-12-02] MEDS: METFORMIN HCL 500 MG TAB PO SCH (16:52)
[2017-12-02] MEDS: TRIAMTERENE/HCTZ 37.5/25MG TAB PO SCH (16:53)
[2017-12-02] MEDS: ATORVASTATIN 20 MG TAB PO SCH (16:53)
[2017-12-02] MEDS: PANTOprazole SOD 40 MG TAB PO SCH (16:53)
[2017-12-02] MEDS ORDERED: NURSING VERBAL MED ORDER ONE (17:15)
[2017-12-02] MEDS ORDERED: LORAZEPAM 2 MG/ML 1 ML VIAL ONE (17:17)
[2017-12-02] MEDS ORDERED: AMIODARONE IV BOLUS / DRIP IV STA (17:47)
[2017-12-02] MEDS ORDERED: AMIODARONE / D5W 100 ML IV ONE (18:45)
[2017-12-02] MEDS ORDERED: AMIODARONE / D5W 200 ML IV SCH (18:55)
[2017-12-02 22:46] LABS: PTT PATIENT 36.9 SECONDS (21.0-31.0)
[2017-12-03] VITALS (18 sets, daily range): BP systolic 106–137; BP diastolic 40–99; PULSE 72–139; TEMP 36.5–36.8; O2SAT 92–94
[2017-12-03] MEDS ORDERED: DILTIAZEM HCL INJ 125 MG in DEXTROSE 5% 100ML IV PRN ×2
[2017-12-03] MEDS ORDERED: HEPARIN IV BOLUS 7,000 UNIT in SYRINGE 0 ML IV ONE (00:15)
[2017-12-03] MEDS ORDERED: ENOXAPARIN 1 MG/KG SQ SCH (00:45)
[2017-12-03] MEDS ORDERED: ENOXAPARIN 120 MG/0.8 ML SYR SQ STA (00:59)
[2017-12-03] MEDS ORDERED: NURSING VERBAL MED ORDER ONE (01:15)
[2017-12-03] MEDS: AMIODARONE / D5W 200 ML IV SCH ×2 (01:16→13:08)
[2017-12-03] MEDS: HEPARIN 25,000 UNIT/500ML D5W 500 ML IV PRN ×3 (01:25→17:50)
[2017-12-03 07:51] LABS: PTT PATIENT 59.4 SECONDS (21.0-31.0)
[2017-12-03] MEDS: METFORMIN HCL 500 MG TAB PO SCH ×2 (07:55→16:15)
[2017-12-03] MEDS ORDERED: DILTIAZEM BOLUS / DRIP IV STA (10:39)
[2017-12-03] MEDS ORDERED: PERFLUTREN LIPID MICROSPHERE (DEFINITY) IV ONE (10:43)
[2017-12-03] MEDS ORDERED: DIGOXIN IV 250 MCG in SYRINGE 9 ML IV ONE (11:00)
[2017-12-03] MEDS ORDERED: DILTIAZEM HCL 5 MG/ML 5 ML VIAL BOLUS/OMNI IV SCH (11:00)
[2017-12-03] MEDS: METOPROLOL TARTRATE 25 MG TAB PO SCH ×2 (11:01→21:32)
[2017-12-03] MEDS ORDERED: ENOXAPARIN 120 MG/0.8 ML SYR SQ SCH (12:00)
[2017-12-03] MEDS: DILTIAZEM HCL INJ 125 MG in DEXTROSE 5% 100ML IV PRN (13:05)
[2017-12-03] MEDS ORDERED: AMIODARONE 150MG / 100ML D5W ONE (13:14)
[2017-12-03] MEDS ORDERED: DILTIAZEM HCL 5 MG/ML 5 ML VIAL ONE (13:18)
--- NOTE | 2017-12-03 13:36 | ECHOCARDIOGRAM REPORT ---
*NOTICE TO RECEIVING CONSTITUTION PARTY AGENCY This information is strictly Confidential and protected under [place] law. [place] law prohibits you from making any further disclosure of this information unless further disclosure is expressly permitted by the written consent of the person to whom it pertains or is authorized by law. A general authorization for the release of medical or other information is not sufficient for this purpose. Hospital accepts no responsibility if the information is made available to any other person, INCLUDING THE PATIENT. Interpretation Summary * Name: KRUPA MERRITT Study Date: 12/03/2017 09:57 AM BP: 114/78 mmHg * Patient Location: C.2T\S\S242\S\1 HR: 146 * : 1965 (M/d/yyyy) Gender: Male Height: 72 in * Age: 52 yrs Ethnicity: MN Weight: 246 lb * Ordering Physician: Cathleen Harding * Referring Physician: Self, Referred * Performed By: Erik Lizarraga RDCS * * Reason For Study: A-fib * BSA: 2.3 m2 * -- Conclusions -- * Left ventricular systolic function is normal. * No regional wall motion abnormalities noted. * Ejection Fraction = 55-60%. * There is mild concentric left ventricular hypertrophy. * Moderate left atrial dilatation. * No significant valvular pathology. Procedure Details * A complete two-dimensional transthoracic echocardiogram was performed (2D, M-mode, Doppler and color flow Doppler). * The study was technically difficult, but visualization was adequate with the administration of Definity ultrasound contrast. * A contrast injection of Definity was performed to improve assessment of LV function. * One vial of Definity ultrasound contrast was diluted in normal saline to a total volume of 10 ml. A total of '4' ml of solution was administered during imaging. * Expiration date EB. * Lot # [id number] of Definity utilized for procedure. * The attending nurse who injected the contrast agent was PAUL Mckeon. Left Ventricle * The left ventricle is normal in size. * There is mild concentric left ventricular hypertrophy. * Ejection Fraction = 55-60%. * Left ventricular systolic function is normal. * No regional wall motion abnormalities noted. Right Ventricle * The right ventricle is not well visualized. * The right ventricular systolic function is normal as assessed by tricuspid annular plane systolic excursion (TAPSE) (normal >1.5 cm). Atria * The left atrium is moderately dilated. * The right atrium is mildly dilated. * There is no evidence of atrial septal defect, but resolution does not allow assessment for a patent foramen ovale. Mitral Valve * The mitral valve is grossly normal. * There is no mitral valve stenosis. * There is trace mitral regurgitation. Tricuspid Valve * The tricuspid valve is not well visualized, but is grossly normal. * There is no tricuspid stenosis. * There is trace tricuspid regurgitation. Aortic Valve * The aortic valve is trileaflet. * The aortic valve opens well. * Aortic valve sclerosis mild, without significant aortic valvular stenosis. * There is no significant aortic regurgitation. Pulmonic Valve * The pulmonary valve is not well seen, but the Doppler examination is normal without significant regurgitation or stenosis. Great Vessels * The aortic root is normal size. * The pulmonary is not well visualized. Pericardium/Pleural * There is no pericardial effusion. Great Vessels * Normal inferior vena cava size and collapsability with sniff indicates a normal right atrial pressure of 3 mmHg MMode 2D Measurements and Calculations IVSd 1.2 cm LVIDd 4.7 cm LVPWd 1.2 cm IVS/LVPW 1.1 EDV(Teich) 103.0 ml EDV(cubed) 104.7 ml LV mass(C)d 210.5 grams LV mass(C)dI 90.5 grams/m\S\2 Ao root diam 2.8 cm Ao root area 6.3 cm\S\2 ACS 1.8 cm LA dimension 5.1 cm asc Aorta Diam 2.9 cm LA/Ao 1.8 LVOT diam 2.1 cm LVOT area 3.5 cm\S\2 LVAd ap4 25.9 cm\S\2 LVLd ap4 8.3 cm EDV(MOD-sp4) 67.5 ml EDV(sp4-el) 68.9 ml LVAs ap4 15.5 cm\S\2 LVLs ap4 6.9 cm ESV(MOD-sp4) 31.7 ml ESV(sp4-el) 31.4 ml EF(MOD-sp4) 53.0 % EF(sp4-el) 54.4 % LVAd ap2 27.4 cm\S\2 LVLd ap2 8.0 cm EDV(MOD-sp2) 76.3 ml EDV(sp2-el) 79.8 ml LVAs ap2 15.0 cm\S\2 LVLs ap2 6.3 cm ESV(MOD-sp2) 30.7 ml ESV(sp2-el) 30.4 ml EF(MOD-sp2) 59.8 % EF(sp2-el) 62.0 % LVLd %diff -3.28 % EDV(MOD-bp) 70.7 ml LVLs %diff -2.25 % ESV(MOD-bp) 21.2 ml EF(MOD-bp) 70.0 % SV(MOD-sp4) 35.8 ml SI(MOD-sp4) 15.4 ml/m\S\2 SV(MOD-sp2) 45.6 ml SI(MOD-sp2) 19.6 ml/m\S\2 SV(MOD-bp) 49.5 ml SI(MOD-bp) 21.3 ml/m\S\2 SV(sp4-el) 37.5 ml SI(sp4-el) 16.1 ml/m\S\2 SV(sp2-el) 49.5 ml SI(sp2-el) 21.3 ml/m\S\2 Doppler Measurements and Calculations MV E max derrell 89.0 cm/sec MV dec time 0.14 sec Ao V2 max 115.2 cm/sec Ao max PG 5.3 mmHg Ao max PG (full) 1.5 mmHg PHIL(V,A) 3.0 cm\S\2 PHIL(V,D) 3.0 cm\S\2 LV V1 max PG 3.8 mmHg LV V1 max 97.2 cm/sec PA V2 max 153.6 cm/sec PA max PG 9.4 mmHg
--- NOTE | 2017-12-03 15:10 | CARDIOLOGY CONSULTATION ---
DATE OF CONSULTATION: 12/03/2017 PERTINENT HISTORY: Mr. Gama is a 52-year-old white male admitted yesterday with atrial fibrillation with a rapid ventricular response. This consultation was ordered to assist in his cardiac management. The patient presented to the Emergency Room yesterday complaining of palpitations and exertional dyspnea. The patient claims that he has noticed intermittent palpitations; however, on Monday, they became sustained. He noticed significant fatigue and exertional dyspnea and therefore, presented to the Emergency Room for further care. However, here, he was noted to be in atrial fibrillation with a rapid ventricular response. He was started on intravenous heparin and amiodarone. The patient has never known of a cardiac event. He has never experienced exertional chest pain. Dyspnea only occurs at the time of palpitations. He denies syncope, presyncope, PND, orthopnea, lower extremity edema, and claudication. The patient has never been diagnosed with atrial fibrillation previously. Currently, the patient is resting comfortably in bed without complaints of chest pain, dyspnea, or palpitations. PAST MEDICAL HISTORY: 1. Hypertension. 2. Hypercholesterolemia. 3. Diabetes mellitus. 4. Asthma. 5. History corneal abrasion. 6. Appendectomy. 7. Cholecystectomy. MEDICATIONS: 1. Amiodarone drip. 2. Heparin drip. 3. Metoprolol tartrate 25 mg b.i.d. 4. Dyazide 1 tablet daily. 5. Lipitor 20 mg at bedtime. 6. Protonix 40 mg daily. 7. Metformin 1000 mg b.i.d. 8. Albuterol MDI p.r.n. ALLERGIES: None. SOCIAL HISTORY: The patient is and lives with his . He works at [employer]. Does not use tobacco. Alcohol use is occasional. FAMILY HISTORY: Mother is 71 and recently had a pacemaker placed. Father at age 70 from colon carcinoma. REVIEW OF SYSTEMS: A 10-point review of systems is negative except for that described above. PHYSICAL EXAMINATION: GENERAL: This is a well-developed, well-nourished, white male lying supine in bed and without complaints. VITAL SIGNS: Blood pressure is 130/85 with an irregular pulse of 100. Respiratory rate is 20 and the patient is afebrile at 36.5 degrees Celsius. Saturations 92% on room air. NECK: Supple with full carotid upstrokes. There are no carotid bruits. Jugular venous pressure is flat at 90 degrees. There is no thyromegaly. CARDIOVASCULAR: Reveals an irregular, irregular rhythm with distant heart sounds. No obvious murmurs. LUNGS: Clear without rales, rhonchi, or wheezes. ABDOMEN: Soft, nontender without bruits. EXTREMITIES: Reveal intact radial artery and posterior tibial pulses bilaterally. There is no peripheral edema. DATA: CBC notes hemoglobin 14.5, hematocrit 43.3, white count 13.5, and platelet count 333,000. Electrolytes note a sodium of 138, potassium 4.1, chloride 102, bicarbonate 22, BUN 19, creatinine 0.9, and glucose 147. Calcium level is normal at 8.6. Three separate troponin I levels are undetectable at less than 0.015. CK is 48 with an MB fraction of 0.6. BNP is 1740. TSH is normal at 0.511. PTT is 59.4. EKG notes atrial fibrillation with a rapid ventricular response. There is a rightward axis and nonspecific ST-T wave abnormality. telemetry monitor confirms the same. IMPRESSION: Mr. Gama was admitted with atrial fibrillation and rapid ventricular response. According to his history, his palpitations became sustained on Monday. He was started on anticoagulation within the 48-hour window, making intravenous amiodarone a viable option. Agree with the addition of intravenous diltiazem to better control his rate. PLAN: 1. Agree with intravenous heparin. 2. Agree with addition of intravenous diltiazem to better control ventricular response. 3. Check magnesium level. 4. Consider discontinuation of diuretic to allow in increasing his beta jeb therapy. 5. Further recommendations depending on his clinical course.
--- NOTE | 2017-12-03 17:15 | Progress Note ---
Subjective Date of Service: Dec 03, 2017. Subjective Pt evaluation today including: conversation w/ patient, conversation w/ family , physical exam, chart review, lab review, review of studies, conversation w/ pre owned sales consultant, review of inpatient medication list feeling better HR improvign some. notes on directed questioning that while fatigue was really bad starting on monday, chronically he does have a degree of sleepiness where if he was sitting down he could just take a nap. EXTENSIVE discussions w pt and family on afib, rate control, anticoagulation, and HORACIO and dx and treatment all questions answered to the best of my ability. d/w cardiology and input greatly appreciated as well Problem List Medical Problems: (1) Atrial fibrillation with RVR Status: Acute (2) Chemical keratoconjunctivitis Status: Acute (3) Contusion of right knee Status: Acute (4) Corneal abrasion Status: Acute Review of Systems all other ROS otherwise negative except for as above Objective Vital Signs Date Time Temp Pulse Resp B/P (MAP) Pulse Ox O2 Delivery O2 Flow Rate FiO2 12/03/17 16:00 Room Air 12/03/17 15:06 36.5 76 20 129/40 (69) 93 Room Air 12/03/17 14:59 124 115/71 (86) 94 Room Air 12/03/17 12:31 155 12/03/17 12:00 Room Air 12/03/17 11:08 36.5 136 21 131/85 (100) 92 Room Air 12/03/17 08:00 92 Room Air 12/03/17 07:34 36.5 108 18 114/78 (90) 92 Room Air 12/03/17 06:04 Room Air 12/03/17 04:00 Room Air 12/03/17 03:26 36.8 124 18 106/71 (83) 94 Room Air 12/03/17 00:00 Room Air 12/02/17 23:20 36.9 103 20 101/77 (85) 96 Room Air 12/02/17 22:13 135 122/72 (89) 12/02/17 21:00 120 119/77 (91) 12/02/17 20:00 91 Room Air 12/02/17 19:43 37.0 96 18 94/60 (71) 91 Room Air 12/02/17 18:00 133 154/74 (100) 95 12/02/17 17:30 170 158/76 (103) 95 Physical Exam General Appearance: no apparent distress Eyes: EOMI ENT: hearing grossly normal, + pertinent finding (redundant soft palate) Neck: trachea midline Respiratory/Chest: no respiratory distress, no accessory muscle use Cardiovascular: + tachycardia (slowing down over the course of the day), + irregularly irregular Extremities: normal range of motion Neurologic/Psychiatric: assisted living assistant II-XII nml as tested, alert, normal mood/affect Skin: normal color, warm/dry Laboratory Results Last 24 Hours Test 12/02/17 17:44 12/02/17 20:31 12/02/17 22:27 12/03/17 00:22 Troponin I < 0.015 ng/ml < 0.015 ng/ml Thyroid Stimulating Hormone (TSH) 0.511 uIu/ml Bedside Glucose 103 mg/dl Activated Partial Thromboplast Time 36.9 SECONDS Partial Thromboplastin Ratio 1.4 Test 12/03/17 07:11 12/03/17 11:33 Activated Partial Thromboplast Time 59.4 SECONDS Partial Thromboplastin Ratio 2.3 Triglycerides Level 166 mg/dl Cholesterol Level 118 mg/dl HDL Cholesterol 34 mg/dl LDL Cholesterol, Calculated 51 mg/dl VLDL Cholesterol, Calculated 33 mg/dl Cholesterol/HDL Ratio 3.5 Bedside Glucose 107 mg/dl Assessment and Plan Afib with RVR: uncertain onset, with severe fatigue starting monday, RVR likely started then; total duration of afib not clear however -TSH OK, echo reportedly without significant abnormalities -overnight pulse ox MARKEDLY positive with 267 total desaturation events, and 190 of less than 88% - making HORACIO highly likely as a driving factor. sleep study and set up for CPAP arminda as outpt -rate control has been difficult - was on cardizem --> amio initially - added metoprolol, then re-added cardizem with an additional 1 time dose of digoxin - and finally with all stacked his rates are starting to show improvement. d/w pt and cardiology - given refractory rate, may end up needing cardioversion if he remains exceedingly difficult to control, but seems to be improving -currently parenteral anticoagulation - but anticipate transition to NOAC as long as coverage allows overnight desaturations -appearing QUITE c/w HORACIO -explained to pt and family at length and in detail -outpt sleep study arminda (asked navigator to facilitate) HTN: meds as per afib as well DM: continue home meds A1c pending sugars have been acceptable, discussed "high sugars clog arteries" and critical/near definitive role of lifestyle as main factor for the huge majority of type 2 diabetics encouraged postprandial glycemic checks at home so he can better learn cause/ effect with foods to start to productively change lifestyle Hyperlipidemia: continue home meds overall lipids adequate for risk - anticipate TGs improvign with better lifestyle - continue current meds Asthma: no current exacerbation continue home PRN inhaler no problems noted today Vertigo: no current exacerbation continue home PRN med no problems noted today Other: Full code DM diet Heparin for DVT proph
[2017-12-04] VITALS (16 sets, daily range): BP systolic 105–127; BP diastolic 45–76; PULSE 73–118; TEMP 36.3–36.8; O2SAT 92–98
[2017-12-04] MEDS: AMIODARONE / D5W 200 ML IV SCH ×2 (01:15→11:55)
[2017-12-04] MEDS: HEPARIN 25,000 UNIT/500ML D5W 500 ML IV PRN ×2 (06:37→20:26)
[2017-12-04 06:50] LABS: HEMATOCRIT 41.2 % (42-52); HEMOGLOBIN 13.6 g/dL (14.0-18.0); MEAN CELL VOLUME 77.9 fL (80-100); MEAN CORPUSCULAR HEMOGLOBIN 25.7 pg (25-34); MEAN PLATELET VOLUME 10.5 fL (7.4-10.4); PLATELET COUNT 307 K/uL (130-400); RED CELL DISTRIBUTION WIDTH CV 15.1 % (11.5-14.5); RED CELL DISTRIBUTION WIDTH SD 42.4 fL (36.4-46.3); WHITE BLOOD COUNT 8.71 K/uL (4.8-10.8)
[2017-12-04 06:56] LABS: HEMOGLOBIN A1C 6.4 % (4.5-5.6)
[2017-12-04 07:13] LABS: PTT PATIENT 48.5 SECONDS (21.0-31.0)
[2017-12-04] MEDS: DILTIAZEM HCL INJ 125 MG in DEXTROSE 5% 100ML IV PRN (07:16)
[2017-12-04] MEDS: ATORVASTATIN 20 MG TAB PO SCH (08:23)
[2017-12-04] MEDS: METOPROLOL TARTRATE 25 MG TAB PO SCH (08:23)
[2017-12-04] MEDS: PANTOprazole SOD 40 MG TAB PO SCH (08:23)
[2017-12-04] MEDS: TRIAMTERENE/HCTZ 37.5/25MG TAB PO SCH (08:23)
[2017-12-04] MEDS: METFORMIN HCL 500 MG TAB PO SCH ×2 (08:24→16:19)
--- NOTE | 2017-12-04 09:43 | CARDIOLOGY PROGRESS NOTE ---
DATE: 12/04/2017 SUBJECTIVE: Mr. Gama is resting comfortably at bedside without complaints of chest pain, dyspnea, or palpitations. OBJECTIVE: VITAL SIGNS: Blood pressure is 123/72 with an irregular pulse of 100-120. Respiratory rate is 20. The patient is afebrile at 36.5 degrees Celsius. Saturation is 92% on room air. NECK: Supple with full carotid upstrokes. There are no carotid bruits. Jugular venous pressure is flat at 90 degrees. There is no thyromegaly. CARDIOVASCULAR: Reveals an irregularly irregular rhythm with distant heart sounds. No obvious murmurs. LUNGS: Clear without rales, rhonchi, or wheezes. ABDOMEN: Soft without bruits. EXTREMITIES: Reveal intact radial artery pulses bilaterally. There is no peripheral edema. LABORATORY DATA: CBC notes a hemoglobin of 13.6, hematocrit 41.2, white count 8.7, and platelet count 307,000. Electrolytes are pending. quality assurance monitor body notes atrial fibrillation with a rapid ventricular response. IMPRESSION AND PLAN: 1. Atrial fibrillation -- with rapid ventricular response, refractory to medical management thus far. I have discussed the case with Dr. Garcia, who agrees to proceed with an electrical cardioversion later today. Of note, the patient has been on intravenous heparin since his presentation on Monday. He most likely developed atrial fibrillation on Monday according to his history. 2. Hypertension -- controlled. 3. Hypercholesterolemia -- continue statin. 4. Diabetes mellitus.
--- NOTE | 2017-12-04 10:07 | Hospitalist Progress Note ---
Hospitalist Progress Note Date of Service Dec 04, 2017. Subjective Pt evaluation today including: conversation w/ patient, physical exam, chart review, lab review, review of studies, review of inpatient medication list Pain: None PO Intake: NPO for cardioversion Voiding: no voiding problems Patient reports feeling well, just as bit fatigued. He denies palpitations or chest pain. He states that compared to Monday morning, he feels immensely better. He does complain of an intermittent lower abdominal pain that is sometimes dull, sometimes sharp, but he denies any pain currently. He is moving his bowels and passing gas. He denies any nausea or vomiting. Per nursing, the patient had some SOB overnight but denies any now. The patient denies fevers, chills, sweats, chest pain, palpitations, claudication, cough, wheezing, shortness of breath, nausea, vomiting, abdominal pain, dysuria, hematuria, urinary retention, paralysis, weakness, numbness and tingling. Additional Comments: See HPI for pertinent positives and negatives. All other systems reviewed and negative. Objective Vital Signs Date Time Temp Pulse Resp B/P (MAP) Pulse Ox O2 Delivery O2 Flow Rate FiO2 12/04/17 07:35 36.5 97 20 123/72 (89) 92 12/04/17 06:30 113 118/66 (83) 12/04/17 05:00 100 109/70 (83) 12/04/17 04:00 111 108/69 (82) 12/04/17 04:00 92 Room Air 12/04/17 03:45 36.8 87 20 110/74 (86) 92 Room Air 12/04/17 01:00 94 116/71 (86) 12/04/17 00:18 73 108/64 (79) 12/04/17 00:00 93 Room Air 12/03/17 23:30 36.7 72 20 111/72 (85) 93 12/03/17 22:00 96 118/80 (93) 12/03/17 21:30 139 133/85 (101) 12/03/17 21:00 127 132/91 (105) 12/03/17 20:00 124 130/99 (109) 12/03/17 20:00 92 Room Air 12/03/17 19:10 36.8 103 20 137/91 (106) 92 Room Air 12/03/17 16:00 126 22 128/87 (101) 94 Room Air 12/03/17 16:00 Room Air 12/03/17 15:06 36.5 76 20 129/40 (69) 93 Room Air 12/03/17 14:59 124 115/71 (86) 94 Room Air 12/03/17 14:30 36.7 75 20 130/75 (93) 92 Room Air 12/03/17 14:00 36.6 100 20 111/67 (82) 94 Room Air 12/03/17 13:29 36.6 121 22 110/79 (89) 93 Room Air 12/03/17 13:02 36.7 86 20 118/70 (86) 94 Room Air 12/03/17 12:31 155 12/03/17 12:00 Room Air 12/03/17 11:08 36.5 136 21 131/85 (100) 92 Room Air Physical Exam Notes: General appearance: +Obese. Well-developed, well-nourished, no apparent distress Head: Normocephalic, atraumatic Eyes: Normal inspection, PERRL, EOMI ENT: Normal ENT inspection, hearing grossly normal, pharynx normal Neck: Supple, no JVD, trachea midline Respiratory/Chest: Lungs clear to auscultation, normal breath sounds, no respiratory distress Cardiovascular: +Irregularly irregular, tachycardic. No gallop, no murmur Abdomen/GI: Normal bowel sounds, non-tender, soft Extremities/Musculoskeletal: Normal inspection, no calf tenderness, no pedal edema Neurological/Psych: Alert, normal mood/affect, oriented x 3 Skin: Normal color, warm/dry, no rash Laboratory Results Last 24 Hours Test 12/03/17 11:33 12/03/17 20:54 12/04/17 03:10 12/04/17 06:27 Bedside Glucose 107 mg/dl 111 mg/dl 132 mg/dl 129 mg/dl Test 12/04/17 06:29 12/04/17 09:07 White Blood Count 8.71 K/uL Red Blood Count 5.29 M/uL Hemoglobin 13.6 g/dL Hematocrit 41.2 % Mean Corpuscular Volume 77.9 fL Mean Corpuscular Hemoglobin 25.7 pg Mean Corpuscular Hemoglobin Concent 33.0 g/dl RDW Standard Deviation 42.4 fL RDW Coefficient of Variation 15.1 % Platelet Count 307 K/uL Mean Platelet Volume 10.5 fL Activated Partial Thromboplast Time 48.5 SECONDS Partial Thromboplastin Ratio 1.9 Assessment and Plan 52 y/o male with a history of HTN, HLD, DM II, asthma, vertigo, and GERD who presents with palpitations, SOB, and fatigue. New onset a-fib with RVR--ongoing, rates slowly improving. RVR onset likely but total duration of a-fib not clear -Admit to telemetry. No acute events overnight. Pt remains in a-fib, HR mostly low 100s overnight but up to 140s -Echo with LVEF 55-60%, no wall motion abnormalities -TSH WNL -IV amiodarone and diltiazem drips -IV heparin drip -Lopressor 25 mg PO BID -Consult cardiology, appreciate recs: Refractory to medication management, will go for cardioversion this afternoon. -NPO for cardioversion -Overnight pulse ox study with 267 total desat events, 190 events less than 88% . HORACIO likely driving factor. Set up sleepy study for CPAP as outpatient HTN, HLD--stable -Continue triamterene/HCTZ 37.5/25 mg PO qd, Lipitor 20 mg PO qd in addition to a-fib meds as above DM II--HgbA1c 6.4 on 12/03 -Continue metformin 1000 mg PO BID -BSGs acceptable on current regimen -Previous physician discussed importance of good control and critical role of lifestyle as main factor for the huge majority of type 2 diabetics. Encouraged postprandial glycemic checks at home so he can better learn cause/effect with foods to start to productively change lifestyle Asthma--stable, no exacerbation -Continue home PRN inhaler Vertigo--stable -Meclizine prn GERD -Prilosec converted to Protonix DVT prophylaxis -Heparin drip Code Status -Level I, FULL RESUSCITATION STATUS
[2017-12-04] MEDS ORDERED: METOPROLOL TARTRATE 50 MG TAB PO STA (13:17)
--- NOTE | 2017-12-04 14:06 | Anesthesiology Progress Note ---
Anesthesia Progress Note Date of Service Dec 04, 2017. Progress Notes This is a 52 y/o w obese male in A-Fib w/ RVR.Pt has a PMHx sig. for: NIDDM,HTN, Hyperlipidemia,Asthma,sleep apnea, GERD and vertigo.Pt may have a SAUNDRA tomorrow.If there is a NOVA thrombus he shall be anticoagulated and rate controlled.Discussed anesthesia w/ pt ,Risks vs Benefits,all questions answered.Informed consent obtained. ASA 4
[2017-12-04] MEDS ORDERED: METOPROLOL TARTRATE 25 MG TAB PO STA (16:19)
[2017-12-04] MEDS ORDERED: METOPROLOL TARTRATE 50 MG TAB PO SCH (21:00)
[2017-12-05] VITALS (8 sets, daily range): BP systolic 98–116; BP diastolic 65–73; PULSE 61–104; TEMP 36.3–36.7; O2SAT 93–97
[2017-12-05] MEDS: DILTIAZEM HCL INJ 125 MG in DEXTROSE 5% 100ML IV PRN (06:58)
[2017-12-05 07:42] LABS: PTT PATIENT 28.9 SECONDS (21.0-31.0)
[2017-12-05] MEDS: METFORMIN HCL 500 MG TAB PO SCH ×2 (07:46→16:19)
[2017-12-05] MEDS: ATORVASTATIN 20 MG TAB PO SCH (07:46)
[2017-12-05] MEDS: METOPROLOL TARTRATE 100 MG TAB PO SCH ×2 (07:46→20:36)
[2017-12-05] MEDS: TRIAMTERENE/HCTZ 37.5/25MG TAB PO SCH (07:47)
[2017-12-05] MEDS: PANTOprazole SOD 40 MG TAB PO SCH (07:47)
[2017-12-05] MEDS ORDERED: DILTIAZEM HCL 60 MG TAB PO ONE (09:11)
--- NOTE | 2017-12-05 09:24 | CARDIOLOGY PROGRESS NOTE ---
DATE: 12/05/2017 SUBJECTIVE: Mr. Gama is resting comfortably in bed without complaints of chest pain, dyspnea, or palpitations. OBJECTIVE: VITAL SIGNS: Blood pressure is 110/70 with an irregular pulse of 80-100. Respiratory rate is 20. The patient is afebrile at 36.6 degrees Celsius. Saturations 96% on 2 liters nasal cannula. NECK: Supple with full carotid upstrokes. No carotid bruits. Jugular venous pressure is flat at 90 degrees. There is no thyromegaly. CARDIOVASCULAR: Reveals an irregular, irregular rhythm with distant heart sounds. No obvious murmurs. LUNGS: Clear without rales, rhonchi, or wheezes. ABDOMEN: Soft without bruits. EXTREMITIES: Reveal intact radial artery pulses bilaterally. There is no peripheral edema. LABORATORY DATA: CBC notes a hemoglobin of 13.6, hematocrit 41.2, white count 8.7, platelet count 307,000. PTT is subtherapeutic at 28.9. quality assurance monitor body notes atrial fibrillation with better control of his ventricular response since increasing beta jeb yesterday. IMPRESSION AND PLAN: 1. Atrial fibrillation -- ventricular response is now better controlled. Will convert from intravenous to oral diltiazem. Dr. Garcia was concerned the duration of his atrial fibrillation was longer and therefore, we will proceed with 3 weeks of anticoagulation prior to an attempted cardioversion. We will start Xarelto at 20 mg daily as his anticoagulant. We would observe on telemetry for another 24 hours. 2. Hypertension -- controlled. 3. Hypercholesterolemia -- continue statin. 4. Diabetes mellitus.
[2017-12-05] MEDS ORDERED: RIVAROXABAN 20 MG TAB PO ONE (09:40)
[2017-12-05] MEDS ORDERED: NURSING VERBAL MED ORDER ONE (10:45)
--- NOTE | 2017-12-05 10:53 | Hospitalist Progress Note ---
Hospitalist Progress Note Date of Service Dec 05, 2017. Subjective Pt evaluation today including: conversation w/ patient, physical exam, chart review, lab review, review of inpatient medication list Pain: None PO Intake: Tolerating PO diet Voiding: no voiding problems Patient complains of some nausea and did vomit once this morning but "held it in ". He still complains of intermittent lower abdominal pain that resolves after having a BM--he states this is chronic since he was a kid. He denies any palpitations, chest pain or shortness of breath. The patient denies fevers, chills, sweats, chest pain, palpitations, claudication, cough, wheezing, shortness of breath, dysuria, hematuria, urinary retention, paralysis, weakness , numbness and tingling. Additional Comments: See HPI for pertinent positives and negatives. All other systems reviewed and negative. Objective Vital Signs Date Time Temp Pulse Resp B/P (MAP) Pulse Ox O2 Delivery O2 Flow Rate FiO2 12/05/17 08:00 36.6 104 20 113/71 (85) 96 Nasal Cannula 2.0 12/05/17 05:35 Nasal Cannula 2.0 12/05/17 04:19 36.7 88 20 116/70 (85) 97 Room Air 2.0 12/05/17 04:00 Nasal Cannula 2.0 12/05/17 00:01 Nasal Cannula 2.0 12/04/17 23:33 36.8 84 22 112/72 (85) 95 Room Air 12/04/17 20:00 Nasal Cannula 2.0 12/04/17 19:40 36.6 73 22 123/76 (92) 96 Nasal Cannula 2.0 12/04/17 17:44 92 20 113/73 (86) 95 Nasal Cannula 2.0 12/04/17 16:00 97 Nasal Cannula 2.0 12/04/17 15:42 36.5 87 18 105/66 (79) 97 Nasal Cannula 2.0 12/04/17 14:30 73 22 124/75 (91) 98 Nasal Cannula 2.0 12/04/17 11:05 36.3 118 20 127/45 (72) 98 Nasal Cannula 2.0 Physical Exam Notes: General appearance: +Obese. Well-developed, well-nourished, no apparent distress Head: Normocephalic, atraumatic Eyes: Normal inspection, PERRL, EOMI ENT: Normal ENT inspection, hearing grossly normal, pharynx normal Neck: Supple, no JVD, trachea midline Respiratory/Chest: Lungs clear to auscultation, normal breath sounds, no respiratory distress Cardiovascular: +Irregularly irregular, rate controlled. No gallop, no murmur Abdomen/GI: Normal bowel sounds, non-tender, soft Extremities/Musculoskeletal: Normal inspection, no calf tenderness, no pedal edema Neurological/Psych: Alert, normal mood/affect, oriented x 3 Skin: Normal color, warm/dry, no rash Laboratory Results Last 24 Hours Test 12/04/17 11:36 12/04/17 16:24 12/04/17 20:07 12/05/17 06:59 Bedside Glucose 120 mg/dl 198 mg/dl 113 mg/dl Activated Partial Thromboplast Time 28.9 SECONDS Partial Thromboplastin Ratio 1.1 Assessment and Plan 52 y/o male with a history of HTN, HLD, DM II, asthma, vertigo, and GERD who presents with palpitations, SOB, and fatigue. New onset a-fib with RVR--ongoing, rates slowly improving. RVR onset likely but total duration of a-fib not clear -Admit to telemetry. No acute events overnight. Pt remains in a-fib/a-flutter with HR 80s to low 100s -Echo with LVEF 55-60%, no wall motion abnormalities -TSH WNL -Lopressor increased to 100 mg PO BID per cardiology -Amiodarone drip stopped -Consult cardiology, appreciate recs: Due to concern for longer duration of a- fib, will hold off SAUNDRA/cardioversion for now. Will need 3 weeks anticoagulation prior. Start Xarelto today and d/c heparin drip. Convert to PO diltiazem and stop diltiazem drip. Continue to monitor on tele for 24 hours -Diltiazem 60 mg PO TID -Xarelto 20 mg PO qd. Will be $10/month with savings card -Overnight pulse ox study with 267 total desat events, 190 events less than 88% . HORACIO likely driving factor. Set up sleepy study for CPAP as outpatient HTN, HLD--stable -Continue triamterene/HCTZ 37.5/25 mg PO qd, Lipitor 20 mg PO qd in addition to a-fib meds as above DM II--HgbA1c 6.4 on 12/03 -Continue metformin 1000 mg PO BID -BSGs acceptable on current regimen -Previous physician discussed importance of good control and critical role of lifestyle as main factor for the huge majority of type 2 diabetics. Encouraged postprandial glycemic checks at home so he can better learn cause/effect with foods to start to productively change lifestyle Asthma--stable, no exacerbation -Continue home PRN inhaler Vertigo--stable -Meclizine prn GERD -Prilosec converted to Protonix DVT prophylaxis -Xarelto Code Status -Level I, FULL RESUSCITATION STATUS
[2017-12-05] MEDS: DILTIAZEM HCL 60 MG TAB PO SCH ×2 (14:00→20:36)
[2017-12-06 03:33] VITALS: BP 118/73; PULSE 87; TEMP 36.5; O2SAT 94
[2017-12-06 06:36] LABS: HEMATOCRIT 40.9 % (42-52); HEMOGLOBIN 13.7 g/dL (14.0-18.0); MEAN CELL VOLUME 77.2 fL (80-100); MEAN CORPUSCULAR HEMOGLOBIN 25.8 pg (25-34); MEAN CORPUSCULAR HGB CONC 33.5 g/dl (32-36); MEAN PLATELET VOLUME 10.4 fL (7.4-10.4); PLATELET COUNT 310 K/uL (130-400); RED CELL DISTRIBUTION WIDTH CV 14.7 % (11.5-14.5); RED CELL DISTRIBUTION WIDTH SD 41.3 fL (36.4-46.3)
[2017-12-06 07:04] LABS: CALCIUM 8.7 mg/dl (8.5-10.1); CREATININE 1.08 mg/dl (0.60-1.40); POTASSIUM 3.8 mmol/L (3.5-5.1)
[2017-12-06 07:30] VITALS: BP 102/69; PULSE 81; TEMP 36.6; O2SAT 99
[2017-12-06] MEDS: METOPROLOL TARTRATE 100 MG TAB PO SCH (07:41)
[2017-12-06] MEDS: ATORVASTATIN 20 MG TAB PO SCH (07:41)
[2017-12-06] MEDS: PANTOprazole SOD 40 MG TAB PO SCH (07:41)
[2017-12-06] MEDS: METFORMIN HCL 500 MG TAB PO SCH (07:41)
[2017-12-06] MEDS: TRIAMTERENE/HCTZ 37.5/25MG TAB PO SCH (07:41)
[2017-12-06] MEDS: DILTIAZEM HCL 60 MG TAB PO SCH (07:41)
[2017-12-06] MEDS ORDERED: XRL20 PO (10:12)
[2017-12-06] MEDS ORDERED: DILT180C96 PO (10:12)
[2017-12-06] MEDS ORDERED: LPR100 PO (10:12)
--- NOTE | 2017-12-06 10:22 | Discharge Instructions ---
Discharge Instructions Date of Service Dec 06, 2017. Admission Reason for Admission: New Onset A-Fib Discharge Discharge Diagnosis / Problem: New onset atrial fibrillation with rapid ventricular response Discharge Goals Goal(s): Decrease discomfort, Improve function, Diagnostic testing, Therapeutic intervention Activity Recommendations Activity Limitations: resume your previous activity (as tolerated) . Instructions / Follow-Up Instructions / Follow-Up You were admitted to the hospital after presenting with palpitations, shortness of breath and fatigue. You were found to be in an irregular heart rhythm called atrial fibrillation, as well as a rapid heart rate. You were placed on an IV medication called diltiazem to help control your heart rate, as well as IV heparin to thin your blood, as this irregular rhythm increases your risk for stroke. An overnight pulse oximetry test was done, and the findings were consistent with obstructive sleep apnea (HORACIO). This is likely a large contributing factor to your heart rhythm. Your heart rate is now controlled on oral medications, and you have been switched over to an oral blood thinner called Xarelto. You are now medically stable for discharge. Medications: *Take metoprolol tartrate (Lopressor) 100 mg by mouth twice a day. This is a new medication for your heart rate. *Take diltiazem (Cardizem) 180 mg by mouth once a day. This is also a new medication for your rate. *Take rivaroxaban (Xarelto) 20 mg by mouth once a day. This is a medication is a blood thinner, or anticoagulant. *Continue your home medications as prescribed. Follow up: *You have been scheduled for a sleep study on Monday, 12/08, at 8 pm. This test will help set you up for a CPAP mask to treat your sleep apnea. *You will be scheduled to follow up with your primary care provider in about 1 week following discharge, as well as the drapery rod assembler (heart doctor) in 2-3 weeks. Please seek medical attention if you experience fevers, chills, sweats, dizziness/lightheadedness, loss of consciousness, chest pain, worsening palpitations (heart pounding/fluttering), shortness of breath, nausea, vomiting , numbness or tingling. Current Hospital Diet Patient's current hospital diet: Diabetes Type 2 Diet Discharge Diet Recommended Diet: AHA Diet (Heart Healthy), Diabetes Type 2 Diet Procedures Procedures Performed: Echocardiogram Pending Studies Studies pending at discharge: no Laboratory Results Hemoglobin A1c Test 12/03/17 07:11 Range/Units Estimated Average Glucose 137 mg/dl Hemoglobin A1c 6.4 H 4.5-5.6 % Lipid Panel Test 12/03/17 07:11 Range/Units Triglycerides Level 166 H 0-150 mg/dl Cholesterol Level 118 0-200 mg/dl HDL Cholesterol 34 mg/dl Cholesterol/HDL Ratio 3.5 LDL Cholesterol, Calculated 51 mg/dl Medical Emergencies . Who to Call and When: Medical Emergencies: If at any time you feel your situation is an emergency, please call 911 immediately. . Non-Emergent Contact Non-Emergency issues call your: Primary Care Provider, Momd Teacher Call Non-Emergent contact if: you have a fever, you have any medication questions . Past History Medical & Surgical History: (1) New onset a-fib (2) Atrial fibrillation with RVR . "Provider Documentation" section prepared by Lilian Owen. . VTE Core Measure Inpt VTE Proph given/why not?: Other Anticoagulation (Xarelto)
[2017-12-06 10:28] VITALS: BP 102/69; PULSE 81; TEMP 36.6; O2SAT 99
--- NOTE | 2017-12-06 10:32 | Discharge Summary ---
Discharge Summary Date of Service Dec 06, 2017. Discharge Summary Admission Date: Dec 02, 2017 at 13:24 Discharge Date: Dec 06, 2017 Discharge Disposition: Home Principal Diagnosis: New onset atrial fibrillation with RVR Problems/Secondary Diagnoses: HTN, HLD, DM II, asthma, vertigo, GERD Procedures: CHEST ONE VIEW PORTABLE CLINICAL HISTORY: CHEST PAIN COMPARISON STUDY: 01/10/2016 FINDINGS: Mild cardiomegaly. Prominent pulmonary vasculature. Diaphragms are smooth. No focal infiltrate. IMPRESSION: Findings suggesting pulmonary vascular congestion with no evidence for [place] pulmonary edema. No focal infiltrate. Echocardiogram: Interpretation Summary * Name: KRUPA MERRITT Study Date: 12/03/2017 09:57 AM BP: 114/78 mmHg * Patient Location: [facility]\S\[id number] HR: 146 * : 1965 (M/d/yyyy) Gender: Male Height: 72 in * Age: 52 yrs Ethnicity: ID Weight: 246 lb * Ordering Physician: Cathleen Harding * Referring Physician: Self, Referred * Performed By: Erik Lizarraga RDCS * * Reason For Study: A-fib * BSA: 2.3 m2 * -- Conclusions -- * Left ventricular systolic function is normal. * No regional wall motion abnormalities noted. * Ejection Fraction = 55-60%. * There is mild concentric left ventricular hypertrophy. * Moderate left atrial dilatation. * No significant valvular pathology. Procedure Details * A complete two-dimensional transthoracic echocardiogram was performed (2D, M- mode, Doppler and color flow Doppler). * The study was technically difficult, but visualization was adequate with the administration of Definity ultrasound contrast. * A contrast injection of Definity was performed to improve assessment of LV function. * One vial of Definity ultrasound contrast was diluted in normal saline to a total volume of 10 ml. A total of '4' ml of solution was administered during imaging. * Expiration date . * Lot # [id number] of Definity utilized for procedure. * The attending nurse who injected the contrast agent was PAUL Mckeon. Left Ventricle * The left ventricle is normal in size. * There is mild concentric left ventricular hypertrophy. * Ejection Fraction = 55-60%. * Left ventricular systolic function is normal. * No regional wall motion abnormalities noted. Right Ventricle * The right ventricle is not well visualized. * The right ventricular systolic function is normal as assessed by tricuspid annular plane systolic excursion (TAPSE) (normal >1.5 cm). Atria * The left atrium is moderately dilated. * The right atrium is mildly dilated. * There is no evidence of atrial septal defect, but resolution does not allow assessment for a patent foramen ovale. Mitral Valve * The mitral valve is grossly normal. * There is no mitral valve stenosis. * There is trace mitral regurgitation. Tricuspid Valve * The tricuspid valve is not well visualized, but is grossly normal. * There is no tricuspid stenosis. * There is trace tricuspid regurgitation. Aortic Valve * The aortic valve is trileaflet. * The aortic valve opens well. * Aortic valve sclerosis mild, without significant aortic valvular stenosis. * There is no significant aortic regurgitation. Pulmonic Valve * The pulmonary valve is not well seen, but the Doppler examination is normal without significant regurgitation or stenosis. Great Vessels * The aortic root is normal size. * The pulmonary is not well visualized. Pericardium/Pleural * There is no pericardial effusion. Great Vessels * Normal inferior vena cava size and collapsability with sniff indicates a normal right atrial pressure of 3 mmHg Consultations: Cardiology Medication Reconciliation New Medications: Diltiazem Hcl Coated Beads (Diltiazem Cd) 180 Mg Cap 180 MG PO DAILY for 30 Days, #30 CAP Metoprolol Tartrate (Metoprolol Tartrate) 100 Mg Tab 100 MG PO BID for 30 Days, #60 TAB Rivaroxaban (Xarelto) 20 Mg Tab 20 MG PO DAILY@1700 for 30 Days, #30 TAB Continued Medications: Albuterol Hfa (Ventolin Hfa) 200 Puffs/74945 Mcg Aers 1-2 PUFFS INH Q6H PRN for SOB/Wheezing, #1 INHALER Atorvastatin (Lipitor) 20 Mg Tab 1 TAB PO DAILY for 90 Days, #90 TAB 1 Refill Meclizine Hcl (Meclizine Hcl) 25 Mg Tab 1 TAB PO TID PRN for DIZZINESS for 10 Days, #30 TAB Metformin Hcl (Glucophage) 1,000 Mg Tab 1000 MG PO BID, TAB Omeprazole (Omeprazole) 20 Mg Tab 1 TAB PO DAILY for 90 Days, #90 TAB 3 Refills Triamterene/Hctz (Triamterene/Hctz 37.5-25MG) 1 Tab Tab 1 TAB PO DAILY, TAB Discharge Exam Patient reports feeling well. He denies any palpitations, shortness of breath or chest pain. He denies any abdominal pain today and has not had any more nausea or vomiting. He was able to sleep well last night. The patient denies fevers, chills, sweats, chest pain, palpitations, claudication, cough, wheezing , shortness of breath, nausea, vomiting, abdominal pain, dysuria, hematuria, urinary retention, paralysis, weakness, numbness and tingling. Constitutional: No fever, No chills, No sweats Eyes: No worsening of vision, No eye pain, No diplopia ENT: No hearing loss, No nasal symptoms, No trouble swallowing Respiratory: No cough, No wheezing, No shortness of breath Cardiovascular: No chest pain, No claudication, No palpitations Abdomen: No pain, No nausea, No vomiting Musculoskeletal: No joint pain, No muscle pain, No swelling Genitourinary - Male: No dysuria, No urinary retention, No hematuria Neurologic: No paralysis, No weakness, No numbness/tingling Integumentary: No rash, No itch, No color change General appearance: +Obese. Well-developed, well-nourished, no apparent distress Head: Normocephalic, atraumatic Eyes: Normal inspection, PERRL, EOMI ENT: Normal ENT inspection, hearing grossly normal, pharynx normal Neck: Supple, no JVD, trachea midline Respiratory/Chest: Lungs clear to auscultation, normal breath sounds, no respiratory distress Cardiovascular: +Irregularly irregular, rate controlled. No gallop, no murmur Abdomen/GI: Normal bowel sounds, non-tender, soft Extremities/Musculoskeletal: Normal inspection, no calf tenderness, no pedal edema Neurological/Psych: Alert, normal mood/affect, oriented x 3 Skin: Normal color, warm/dry, no rash Hospital Course 52 y/o male with a history of HTN, HLD, DM II, asthma, vertigo, and GERD who presents with palpitations, SOB, and fatigue. New onset a-fib with RVR--ongoing, rates slowly improving. RVR onset likely but total duration of a-fib not clear -Admit to telemetry. No acute events overnight. Pt remains in a-fib with HR 70s-90s -Echo with LVEF 55-60%, no wall motion abnormalities -TSH WNL -Discharge with Lopressor 100 mg PO BID -Amiodarone drip stopped -Consult cardiology, appreciate recs: Convert diltiazem 60 mg PO TID to diltiazem CD 180 mg PO qd for discharge. Continue metoprolol and Xarelto. Follow up with cardiology in 2-3 weeks for possible SAUNDRA/cardioversion as outpatient. -Diltiazem 180 mg PO qd -Xarelto 20 mg PO qd. Will be $10/month with savings card -Overnight pulse ox study with 267 total desat events, 190 events less than 88% . HORACIO likely driving factor. Sleep study scheduled 12/08 at 8 pm, pt aware HTN, HLD--stable -Continue triamterene/HCTZ 37.5/25 mg PO qd, Lipitor 20 mg PO qd -Metoprolol and diltiazem as above DM II--HgbA1c 6.4 on 12/03 -Continue metformin 1000 mg PO BID -BSGs acceptable on current regimen -Previous physician discussed importance of good control and critical role of lifestyle as main factor for the huge majority of type 2 diabetics. Encouraged postprandial glycemic checks at home so he can better learn cause/effect with foods to start to productively change lifestyle Asthma--stable, no exacerbation -Continue home PRN inhaler Vertigo--stable -Meclizine prn GERD -Prilosec converted to Protonix DVT prophylaxis -Xarelto Code Status -Level I, FULL RESUSCITATION STATUS Dispo -Rate controlled, now asymptomatic, stable for d/c home -F/u PCP, cardiology Total Time Spent: Greater than 30 minutes This includes examination of the patient, discharge planning, medication reconciliation, and communication with other providers. Discharge Instructions Please refer to the electronic Patient Visit Report (Discharge Instructions) for additional information. Additional Copies To Yocasta Nice M.D.
--- NOTE | 2017-12-06 11:23 | CARDIOLOGY PROGRESS NOTE ---
DATE: 12/06/2017 DATE: 12/06/2017 SUBJECTIVE: Mr. Gama is resting comfortably in bedside chair without complaints of chest pain, dyspnea, or palpitations. Claims to feel as well now as he has in quite some time. He is anxious for hospital discharge. OBJECTIVE: VITAL SIGNS: Blood pressure is 102/69 with an irregular pulse of 80. Respiratory rate is 16. The patient is afebrile at 36.6 degrees Celsius. Saturations 99% on 2 liters nasal cannula. NECK: Supple with full carotid upstrokes. There are no carotid bruits. Jugular venous pressure is flat at 90 degrees. There is no thyromegaly. CARDIOVASCULAR: Reveals an irregular rhythm with distant heart sounds. No obvious murmurs. LUNGS: Clear without rales, rhonchi, or wheezes. ABDOMEN: Soft, nontender without bruits. EXTREMITIES: Reveal intact radial artery pulses bilaterally. There is no peripheral edema. LABORATORY DATA: CBC notes a hemoglobin of 13.7, hematocrit 40.9, white count 9.6, platelet count 310,000. Electrolytes note a sodium of 134, potassium 3.8, chloride 100, bicarbonate 29, BUN 19, creatinine 1.08, glucose 118. vehicle monitor technician notes atrial fibrillation with a controlled ventricular response. IMPRESSION AND PLAN: 1. Atrial fibrillation -- most likely paroxysmal. Ventricular response now well controlled with the addition of oral diltiazem. Would change from short acting to long acting diltiazem at 180 mg daily. Continue metoprolol and Xarelto at current doses. We will see the patient in 2-3 weeks and decide if electrocardioversion necessary. 2. Hypertension -- controlled. 3. Hypercholesterolemia -- continue statin. 4. Diabetes mellitus.
[2017-12-06] MEDS ORDERED: RIVAROXABAN 20 MG TAB PO SCH (17:00)
== END 2017-12-06 11:30 | disposition home or self-care (01) | DRG 310 ==
LOC: C.EDB 11:46 → C.2T 13:24 → ENRESERV 13:57
PROVIDERS: ADMIT Family Medicine; ATTEND Hospitalist
DX: I48.0 Paroxysmal atrial fibrillation (principal); I48.92 Unspecified atrial flutter; G47.33 Obstructive sleep apnea (adult) (pediatric); I11.9 Hypertensive heart disease without heart failure; E11.9 Type 2 diabetes mellitus without complications; J45.909 Unspecified asthma, uncomplicated; E78.5 Hyperlipidemia, unspecified; K21.9 Gastro-esophageal reflux disease without esophagitis; R42 Dizziness and giddiness; Z79.899 Other long term (current) drug therapy; Z79.84 Long term (current) use of oral hypoglycemic drugs; Z82.49 Family history of ischemic heart disease and other diseases of the circulatory system; Z83.3 Family history of diabetes mellitus; Z82.3 Family history of stroke; Z80.0 Family history of malignant neoplasm of digestive organs

== ENCOUNTER → 2017-12-08 | Outpatient (CLI) | payer OTHER ==
[~2017-12-08] MED LIST changes: +ATOR-54 PO; -ATOR10TA82 PO; +DILT180C96 PO; +LPR100 PO; +VNTHFA/IN INH; +XRL20 PO
--- NOTE | 2017-12-09 05:43 | PAP/PSG TECHNICIAN REPORT ---
[facility] Restaurant Manager Polysomnogram Report Study name: None Report date: 12/09/2017 Study date: 12/08/2017 Referring Physician: Dr. Justus Mcbride Name: KRUPA MERRITT Interpreting Physician: Erik Jung D.O. Date of : 1965 Restaurant Manager: Lilian Sesay RPS. Sex: Male Age: 52 Study Type: PSG Weight: 234 lbs Height: 52 years, Height 6' 0" BMI: 31.73 Medications: ALBUTEROL, ATORVASTATIN 20 MG, DILTIAZEM 180 MG, MECLIZINE 25 MG, METFORMIN 1000 MG, METOPROLOL 100 MG, OMEPRAZOLE 20 MG, RIVAROXABAN 20 MG, TRIAMTERENE/HCTZ 37.5-25 MG Patient History 52 yr-old male here for a baseline study. He has a history of daytime sleepiness and SOB. He was recently hospitalized for atrial fibrillation. His [place] scale is 2, but he stated it could be higher whether or not he is busy or bored. The test was started on room air. ETCO2 testing was not utilized during this study. Room 1 Parameters Monitored NPSG: E1-M2, E2-M1, Fp1-M2, Fp2-M1, F3-M2, F4-M2, F4-M1, C3-M2, C4-M2, C4-M1, O1-M2, O2-M2, O2-M1, T3-M2, T4-M1, P3-M2, P4-M1, CHIN1, CHIN2, HR, EKG, Legs, PFLOW, SNOR, FLOW, CFLOW, Tidal Volume, THOR, ABDO, SpO2, PLTH, CPRESS, ETCO2 Wave, ETCO2, pH Sleep Architecture Sleep Stages Time at Lights Off 9:31:42 PM STAGES Time (min.) TST (%) Time at Lights On 5:25:42 AM Wake 61.5 -- Total Recording Time (TRT) 474.00 min. N1 109.5 27 Total Sleep Period (TSP) 461.0 min. N2 214.5 52 Total Sleep Time (TST) 412.5min. N3 0.0 0 Awake Time 61.5 min. REM 88.5 21 Wake after Sleep Onset 48.5 min. Sleep Efficiency (SE) 87 % Sleep Onset Latency (BRIDGETTE) 13.0 min. Number of Stage 1 Shifts None Awakenings 47 Stage Changes 205 Number of REM periods 10 REM 88.5 21 REM Latency 157.0 min. NREM 324.0 79 Body Position Analysis Supine Right Left Side Prone Vertical Total Sleep Time (min.) 118.5 136.3 181.1 317.41 0.0 0.0 Total Sleep Time (%) 23% 33% 44% 77 0% N/A% Total Sleep Time REM (min.) 0.0 28.5 60.0 None 0.0 0.0 Total Sleep Time NREM (min.) 95.1 107.8 121.1 None 0.0 0.0 Intermittent Wake (min.) 23.4 28.7 9.4 None 0.0 0.0 Total Sleep Period (%) 26% None None None None None Arousals Myoclonus (PLM) * Events Count Index Events Count Index Spontaneous 79 11 Events Awake (PLMW) 51 49.8 Respiratory 88 13.2 Events Asleep w/ Arousal (PLMA) 12 1.7 PLM 12 2 Events Asleep w/o Arousal (PLMS) 96 14.0 Snoring 27 4 Total Asleep 108 15.7 Total 204 30 Total 159 20 Respiratory Analysis * CA OA MA CH H RERA Total Count 29 39 10 0 108 18 186 Index 4.2 5.7 1.5 0 15.7 3 29.7 Mean Duration 17.5 19.3 25.1 0.00 19.5 17.9 19.3 Longest Duration 25.9 31.7 34.5 0.00 34.5 21.2 38.9 Respiratory Event Summary Total Supine ~Supine Right Left Prone REM NREM Apneas Count 78 73 5 3 2 N/A 2 76 Index 11.3 46 1 1.3 0.7 N/A 1 14 Hypopneas (4% Desat) Count 108 36 72 39 33 N/A 37 71 Index 15.7 22.7 14 17.2 10.9 N/A 25.1 13.1 Apneas & All Hypopneas Count 186 109 77 42 35 N/A 39 147 Index 27.1 69 15 18 12 N/A 26.4 27.2 Respiratory Events (Humane Agent+All Hyp+RERA) Count 186 117 87 50 37 N/A 39 147 Index 29.7 74 16 22.0 12.3 N/A 27.8 30.2 Respiratory Related Arousal Count 88 117 27 23 4 N/A 6 85 Index 13.2 40 5 10 1 N/A 4 16 Snoring Analysis Supine Right Left Prone REM NREM Total Snore duration 38.5 min Snores count 132 358 1,273 N/A 188 1,575 1,763 Snore mean duration 1.3 Sec Snores index 83 158 422 N/A 127.5 291.7 256.4 TST with snoring (%) 9.3% Desaturation Event Summary: Minimum %SpO2 Event Count Mean/Min/Max Duration(sec.) Desaturation Index % Time In Bed > 90 224 30.6 / 5.0 / 60.0 48.1 59.2 86 - 90 19 33.0 / 10.5 / 60.0 6.2 38.9 81 - 85 0 N/A 0.0 1.9 76 - 80 0 N/A 0.0 0.0 71 - 75 0 N/A 0.0 0.0 66 - 70 0 N/A 0.0 0.0 61 - 65 0 N/A 0.0 0.0 56 - 60 0 N/A 0.0 0.0 51 - 55 0 N/A 0.0 0.0 < 50 0 N/A 0.0 0.0 Total REM NREM Awake <50% 0.0 min. 0.0 min. 0.0 min. 0.0 min. 51 - 60% 0.0 min. 0.0 min. 0.0 min. 0.0 min. 61 - 70% 0.0 min. 0.0 min. 0.0 min. 0.0 min. 71 - 80% 0.0 min. 0.0 min. 0.0 min. 0.0 min. 81 - 90% 192.3 min. 43.1 min. 132.9 min. 16.2 min. 91 - 100% 279.1 min. 45.2 min. 189.6 min. 44.4 min. Average 91 90 91 92 Minimum SpO2 83 83 85 85 Desaturation Event Index 29.6 35.3 28.3 34.1 # Desat. Events below 89% 56 26 22 8 Time(%) with Saturation below 89% 11.1 5.4 5.0 0.7 Time(min.) with Saturation below 89% 52.2 25.4 23.5 3.3 Time (mins) REM (mins) NREM (mins) % of TST SpO2 Below 90% 133 44 N89 25.3 SpO2 Below 88% 29 0 0 6 Heart Rate Analysis Min (bpm) Max (bpm) Average (bpm) Awake 39 127 73 NREM 30 145 70 REM 48 96 71 Overall 30 145 70 Supplemental O2 Values Minimum O2 level: None Value Start Time End Time Restaurant Manager Comments Mr. Merritt slept in the right, left, and supine positions. Cardiac arrhythmias were noted throughout the study (please refer to the printouts). PLMs were noted. No bruxism noted. Snoring was noted and scored as a 3 on a scale of 1 through 5. (0=no snoring, 5=snoring loud enough to be heard through a closed door or down the [place]ay[address] way) He did not wake up to use the restroom during the night. Mr. Merritt stated that he slept about the same as usual. The final report will be interpreted and signed by a sleep physician. The completed physician report will then be placed in the patient medical record. Therapy (cm H2O) 0 TIB (min.) 474.0 TST (min.) 412.5 Sleep Onset (min.) 13.0 REM Onset From Sleep (min.) 157.0 Sleep Efficiency % 87 Wakefulness (%) 13 Wakefulness (min.) 61.5 NREM 1 (%) 27 NREM 1 (min.) 109.5 NREM 2 (%) 52 NREM 2 (min.) 214.5 NREM 3 (%) 0 NREM 3 (min.) 0.0 REM (%) 21 REM (min.) 88.5 # Arousals 204 Arousal Index 30 # Snore 1,763 Snore Index 256.4 AHI 27.1 AHI Supine 69 AHI Non-Supine 15 NREM AHI 27.2 REM AHI 26.4 RDI 29.7 # Obstructive Apnea 39 # Central Apnea 29 # Mixed Apnea 10 # Hypopneas 108 RERAs 18 Total Respiratory Events 215 Time Below SpO2 89% (min.) 48.9 Mean NREM SpO2 (%) 91 Mean REM SpO2 (%) 90 Mean Sleep SpO2 (%) 91 Min NREM SpO2 (%) 85 Min REM SpO2 (%) 83 Position Supine (min.) 118.5 Position Non-supine (min.) 317.4 LM Index Sleep 15.7 LM Index NREM 13.1 LM Index REM 25.1 Mean Heart Rate (bpm) 70 Min Heart Rate (bpm) 30
--- NOTE | 2017-12-12 09:12 | Sleep Study ---
Sleep Study Report Date of Service: 12/08/2017 Sleep Study Report CLINICAL DATA: The patient is a 52-year-old male who was referred for a sleep study by Dr. Justus Mcbride. He recently was hospitalized at [facility] with atrial fibrillation with rapid ventricular response. He has a history of hypertension and diabetes. He has a history of daytime sleepiness. The patient' s BMI is 31.73. This was an in-lab overnight polysomnography. SLEEP ARCHITECTURE: The total sleep period was 461 minutes. The total sleep time was 412.5 minutes. The sleep efficiency was mildly reduced at 87 percent. The sleep latency was normal at 13 minutes. Wake after sleep onset was 48.5 minutes. The REM latency was prolonged to 157 minutes. Sleep consisted of stage N1 27 percent, stage N2 52 percent, stage N3 0 percent, stage REM 21 percent. AROUSAL DATA: The patient had a total of 204 arousals including 79 spontaneous arousals, 88 respiratory arousals, 12 PLM arousals, and 27 snoring arousals. The arousal index was 30. PLM DATA: The patient had a total of 108 periodic limb movements of sleep for a PLM index of 15.7. There were 12 arousals associated with limb movements for a PLM arousal index of 1.7. EKG: The underlying cardiac rhythm was atrial fibrillation. The average heart rate was 70 beats per minute. The minimum and maximum heart rates recorded were 30 and 145 respectively. These appear to be artifactual however. RESPIRATORY DATA: The patient had a total of 186 respiratory events including 29 central apneas, 39 obstructive apneas, 10 mixed apneas, and 108 hypopneas. The longest apnea was 34.5 seconds. The mean duration of the hypopneas was 19.5 seconds. The apnea-hypopnea index was moderately elevated at 27.1. This reflects moderate obstructive sleep apnea. OXIMETRY DATA: The average saturation for the night was 91 percent. The minimum saturation was 83 percent. There was a total of 52.2 minutes with saturations less than 89 percent. KICK PLATE INSTALLER COMMENTS: The patient slept on the right, left, and supine positions. Cardiac arrhythmias were noted throughout. No bruxism noted. PLMS were noted. Snoring was noted and scored as a 3 on a scale of 1 through 5. He did not awaken to use the restroom during the night. IMPRESSIONS: 1. Moderate obstructive sleep apnea 2. Cardiac arrhythmia-atrial fibrillation COMMENTS: The patient has moderate sleep apnea. His sleep was very restless. There were frequent awakenings and arousals. There was mild oxygen desaturations throughout the night. Atypical polysomnographic events included increased spindle density. The patient has multiple comorbidities including atrial fibrillation, hypertension, and diabetes. RECOMMENDATIONS: 1. It is suggested that the patient be given a trial of nasal CPAP. This could be done by referral to the Sleep Lab for a CPAP titration study. Alternatively he could be treated with auto CPAP. 2. Weight loss is advised in light of the elevation of body mass index at 31.73. 3. The patient should avoid sleeping in the supine position. During this study the apnea-hypopnea index while supine was severely elevated at 69 events per hour. Copies To 1: Yocasta Nice M.D.; Erik Jung DO; Justus Mcbride MD, PhD
== END | disposition home or self-care (01) ==
LOC: C.NEUR 20:00
PROVIDERS: ATTEND Hospitalist
DX: G47.33 Obstructive sleep apnea (adult) (pediatric) (principal); I48.91 Unspecified atrial fibrillation

== ENCOUNTER → 2018-02-09 | Outpatient (CLI) | payer OTHER ==
[~2018-02-09] MED LIST changes: +ALBUAER INH; -DILT180C96 PO; +METF1000 PO; +METO100T14 PO; +PRLSR20 PO; +RIVA1TAB4 PO
[2018-02-09 17:42] LABS: BASO % 0.3 %; BASO ABS # 0.03 K/uL (0-0.2); EOS % 1.9 %; EOS ABS # 0.19 K/uL (0-0.5); HEMATOCRIT 43.1 % (42-52); HEMOGLOBIN 14.2 g/dL (14.0-18.0); IG# 0.04 K/uL (0.00-0.02); LYMPH % 22.1 %; LYMPH ABS # 2.19 K/uL (1.2-3.4); MEAN CELL VOLUME 78.9 fL (80-100); MEAN CORPUSCULAR HGB CONC 32.9 g/dl (32-36); MEAN PLATELET VOLUME 10.4 fL (7.4-10.4); MONO % 5.7 %; MONO ABS # 0.56 K/uL (0.11-0.59); NEUT % 69.6 %; NEUT ABS # 6.88 K/uL (1.4-6.5); PLATELET COUNT 320 K/uL (130-400); RED CELL DISTRIBUTION WIDTH CV 15.8 % (11.5-14.5); RED CELL DISTRIBUTION WIDTH SD 45.4 fL (36.4-46.3); WHITE BLOOD COUNT 9.89 K/uL (4.8-10.8)
== END | disposition home or self-care (01) ==
LOC: C.LABPVFM 15:52
PROVIDERS: ATTEND Family Medicine
DX: K62.5 Hemorrhage of anus and rectum (principal); K64.9 Unspecified hemorrhoids

== ENCOUNTER → 2018-03-06 | Day surgery (SDC) | payer OTHER ==
[2018-02-20 13:53] VITALS: Ht 182.9 cm; Wt 109.1 kg
[~2018-03-06] VITALS: Ht 182.9 cm; Wt 109.1 kg
[~2018-03-06] MED LIST changes: +LIDOCAINE HCL 2% 2 ML VIAL (20MG/ML) ONE; -LPR100 PO; -METF-384 PO; -OMEP20TA PO; +PROPOFOL IV EMULSION 10 MG/ML 20 ML VIAL IV ONE; +SODIUM CHLORIDE 0.9% 500ML 500 ML IV ONE; -VNTHFA/IN INH; -XRL20 PO
--- NOTE | 2018-03-06 12:11 | Endo History and Physical ---
History & Physical Date of Service: Mar 06, 2018. Chief Complaint: Screening Referring Physician: Dr. Nice History of Present Illness 52 yo CM who presents for screening colonoscopy. Past Surgical History Hx Cardiac Surgery: No Hx Internal Defibrillator: No Hx Pacemaker: No Hx Abdominal Surgery: No Hx of Implantable Prosthesis: No Hx Post-Op Nausea and Vomiting: No Hx Cancer Surgery: No Hx Thoracic Surgery: No Hx Orthopedic: Yes (RT ELBOW SURGERY) Hx Urinary Tract Surgery: No Family History Colon CA Social History Smoking Status: Never Smoker Hx Substance Use: No Hx Alcohol Use: Yes (OCCASIONALLY) Allergies Coded Allergies: No Known Allergies (Unverified , 03/06/18) Current Medications Reported Home Medications Medications Dose Route/Sig Max Daily Dose Days Date Category Xarelto (Rivaroxaban) 20 Mg Tab 20 Mg PO QPM 02/20/18 Reported Triamterene/Hctz 37.5-25MG (Triamterene/HCTZ) 1 Tab Tab 1 Tab PO QAM 02/20/18 Reported Proventil Hfa (Albuterol Sulfate) 108 Mcg/Act Aer 2 Puff INH QID PRN 02/20/18 Reported Prilosec (Omeprazole) 20 Mg Capcr 20 Mg PO BID PRN 02/20/18 Reported Lopressor (Metoprolol Tartrate) 100 Mg Tab 100 Mg PO BID 02/20/18 Reported Glucophage (Metformin Hcl) 1,000 Mg Tab 1,000 Mg PO BID 02/20/18 Reported Meclizine Hcl 25 Mg Tab 1 Tab PO BID 02/20/18 Reported Lipitor (Atorvastatin) 20 Mg Tab 1 Tab PO HS 12/02/17 Reported Vital Signs Weight (Kilograms): 109.09 Height (Feet): 6 Height (Inches): 0 Physical Exam General Appearance: WD/WN, no apparent distress Respiratory/Chest: Auscultation: breath sounds normal Cardiovascular: Heart Auscultation: RRR Abdomen: Bowel Sounds: normal Inspection & Palpation: soft, non-distended, no tenderness, guarding & rebound Assessment and Plan Assessment: 52 yo CM who presents for screening colonoscopy. Plan: Proceed with colonoscopy.
[2018-03-06 12:19] VITALS: TEMP 36.5
--- NOTE | 2018-03-06 13:20 | GI REPORT ---
Procedure Date: 03/06/2018 12:53 PM THIS REPORT HAS BEEN AMENDED Addendum Number: 1 Addendum Date: 03/06/2018 1:21:24 PM Patient held Xarelto 2 days prior to procedure, not Eliquis as previously stated. OK to resume Xarelto today as prescribed Procedure: Colonoscopy Indications: Rectal bleeding, Family history of colon cancer in father Medicines: Monitored Anesthesia Care Complications: No immediate complications. Estimated Blood Loss: Estimated blood loss: none. Procedure: Pre-Anesthesia Assessment: - Prior to the procedure, a History and Physical was performed, and patient medications and allergies were reviewed. The patient's tolerance of previous anesthesia was also reviewed. The risks and benefits of the procedure and the sedation options and risks were discussed with the patient. All questions were answered, and informed consent was obtained. Prior Anticoagulants: The patient has taken Eliquis (apixaban), last dose was 2 days prior to procedure. ASA Grade Assessment: II - A patient with mild systemic disease. After reviewing the risks and benefits, the patient was deemed in satisfactory condition to undergo the procedure. After I obtained informed consent, the scope was passed under direct vision. Throughout the procedure, the patient's blood pressure, pulse, and oxygen saturations were monitored continuously. The scope was introduced through the anus and advanced to the terminal ileum. The colonoscopy was performed without difficulty. The patient tolerated the procedure well. The quality of the bowel preparation was good. The terminal ileum, the appendiceal orifice and the rectum were photographed. Findings: The perianal and digital rectal examinations were normal. Two sessile polyps were found in the rectum. The polyps were 3 to 5 mm in size. These polyps were removed with a cold snare. Resection and retrieval were complete. Non-bleeding internal hemorrhoids were found during retroflexion. The hemorrhoids were small. Impression: - Two 3 to 5 mm polyps in the rectum, removed with a cold snare. Resected and retrieved. - Non-bleeding internal hemorrhoids. Recommendation: - Resume previous diet. - Continue present medications. - Repeat colonoscopy for surveillance based on pathology results and patient's family history of colon cancer in his father. - Return to primary care physician as previously scheduled. Jean Ronquillo DO 03/06/2018 1:20:25 PM This report has been signed electronically. Note Initiated On: 03/06/2018 12:53 PM I attest to the content of the Intraoperative Record and orders documented therein, exceptions below Jean Ronquillo 03/06/2018 1:22:01 PM This report has been signed electronically.
--- NOTE | 2018-03-06 13:21 | Discharge Instructions ---
Endoscopy Patient Instructions Date / Procedure(s) Performed Mar 06, 2018. Colonoscopy Allergy Information Coded Allergies: No Known Allergies (Unverified , 03/06/18) Discharge Date / Findings Mar 06, 2018. Rectal polyps Internal hemorrhoids Medication Instructions Stopped Medication(s): Xarelto last dose 03/04/18. OK to resume all medications today as prescribed Reported Home Medications Medications Dose Route/Sig Max Daily Dose Days Date Category Xarelto (Rivaroxaban) 20 Mg Tab 20 Mg PO QPM 02/20/18 Reported Triamterene/Hctz 37.5-25MG (Triamterene/HCTZ) 1 Tab Tab 1 Tab PO QAM 02/20/18 Reported Proventil Hfa (Albuterol Sulfate) 108 Mcg/Act Aer 2 Puff INH QID PRN 02/20/18 Reported Prilosec (Omeprazole) 20 Mg Capcr 20 Mg PO BID PRN 02/20/18 Reported Lopressor (Metoprolol Tartrate) 100 Mg Tab 100 Mg PO BID 02/20/18 Reported Glucophage (Metformin Hcl) 1,000 Mg Tab 1,000 Mg PO BID 02/20/18 Reported Meclizine Hcl 25 Mg Tab 1 Tab PO BID 02/20/18 Reported Lipitor (Atorvastatin) 20 Mg Tab 1 Tab PO HS 12/02/17 Reported Provider Instructions Activity Restrictions - No exercising or heavy lifting for 24 hours. - Do not drink alcohol the day of the procedure. - Do not drive a car or operate machinery until the day after the procedure. - Do not make any important decisions or sign important papers in 24 hours after the procedure. Following Day: - Return to full activity which may include returning to work/school. Diet Start your diet with liquids and light foods (jello, soup, juice, toast). Then eat your usual diet if not nauseated. Treatment For Common After Affects For mild abdominal pain, bloating, or excessive gas: - Rest - Eat lightly - Lie on right side Follow-Up Information Follow-up with Dr. Turner as scheduled Anesthesia Information What You Should Know You have had a procedure that required some medicine to reduce anxiety and discomfort. This treatment is called moderate sedation. After receiving the treatment, you may be sleepy, but you will be able to breathe on your own. The effects of the treatment may last for several hours. Follow these instructions along with Activity/Diet recommendations noted above: * Do NOT do anything where dizziness or clumsiness would be dangerous. * Rest quietly at home today, then you can be up and about tomorrow. * Have a responsible person stay with you the rest of today. * You may have had an I.V. today. If so, you may take the dressing off later today. Recommendations Call your doctor if: * Trouble breathing * Continuous vomiting for more than 24 hours * Temperature above 101 degrees * Severe abdominal pain or bloating * Pain not relieved by pain medicine ordered * There is increased drainage or redness from any incision * A large amount of rectal bleeding greater than 2-3 tablespoons. (If you had a polyp/s removed or have hemorrhoids, a small amount of blood - from the rectum is to be expected.) * You have any unanswered questions or concerns. IN THE EVENT OF A SERIOUS EMERGENCY, GO TO THE NEAREST EMERGENCY ROOM Your discharge instructions were prepared by provider Jean Ronquillo. Patient Instructions Signature Page Abad Gama Patient (or Guardian) Signature/Date: I have read and understand the instructions given to me by my caregivers. Caregiver/RN/Doctor Signature/Date: The above-named patient and/or guardian has received patient instructions on this date. + Original Patient Signature Page (only) stays with chart. Please make copy for patient.
--- NOTE | 2018-03-06 13:34 | Anesthesiology Progress Note ---
Anesthesia Post Op Note Date & Time Mar 06, 2018 at 13:33 Vital Signs Pain Intensity: 0 Vital Signs Past 12 Hours Date Time Temp Pulse Resp B/P (MAP) Pulse Ox O2 Delivery O2 Flow Rate FiO2 03/06/18 13:16 99 16 112/78 (89) 94 Room Air 03/06/18 12:19 36.5 95 20 114/64 (81) 95 Room Air Notes Mental Status: alert / awake / arousable, participated in evaluation Pt Amnestic to Procedure: Yes Nausea / Vomiting: adequately controlled Pain: adequately controlled Airway Patency, RR, SpO2: stable & adequate BP & HR: stable & adequate Hydration State: stable & adequate Anesthetic Complications: no major complications apparent
[2018-03-06 13:46] VITALS: BP 146/96; PULSE 76; O2SAT 96
== END | disposition home or self-care (01) ==
LOC: C.GI 11:44
PROVIDERS: ATTEND Internal Medicine
DX: Z12.11 Encounter for screening for malignant neoplasm of colon (principal); K62.1 Rectal polyp; Z80.0 Family history of malignant neoplasm of digestive organs; K64.8 Other hemorrhoids; Z79.01 Long term (current) use of anticoagulants; J45.909 Unspecified asthma, uncomplicated; G47.33 Obstructive sleep apnea (adult) (pediatric); I10 Essential (primary) hypertension; E78.5 Hyperlipidemia, unspecified; I48.91 Unspecified atrial fibrillation; K21.9 Gastro-esophageal reflux disease without esophagitis; M19.90 Unspecified osteoarthritis, unspecified site; E11.9 Type 2 diabetes mellitus without complications; H81.09 Meniere's disease, unspecified ear

== ENCOUNTER 2022-07-25 11:44 | Inpatient (IN) ==
[2022-07-25 12:34] LABS: Basophils # (auto) 0.02 K/uL (0-0.2); Basophils % (auto) 0.2 %; Eosinophils # (auto) 0.06 K/uL (0-0.50); Eosinophils % (auto) 0.6 %; Hematocrit (blood only) 37.5 % (40.1-51.0); Hemoglobin 11.8 g/dl (14.0-18.0); Immature Granulocytes # (auto) 0.03 K/uL (0.00-0.02); Immature Granulocytes % (auto) 0.3 %; Lymphocytes # (auto) 0.82 K/uL (1.2-3.4); Lymphocytes % (auto) 8.6 %; Mean Corpuscular Hemoglobin 24.5 pg (25.0-34.0); Mean Corpuscular Hgb Conc 31.5 g/dL (32.0-36.0); Mean Platelet Volume 9.8 fL (9.4-12.4); Monocytes # (auto) 0.71 K/uL (0.24-0.82); Monocytes % (auto) 7.5 %; Neutrophils # (auto) 7.84 K/uL (1.4-6.5); Neutrophils % (auto) 82.8 %; Platelet Count 415 K/uL (130-400); RDW Standard Deviation 42.3 fL (36.4-46.3); Red Blood Count 4.81 M/uL (4.63-6.08); White Blood Count 9.48 K/ul (4.8-10.8)
--- NOTE | 2022-07-25 12:40 | Emergency Department Note ---
Impression & Plan Single subsegmental pulmonary embolism without acute cor pulmonale, Transaminitis, Mass of multiple sites of liver, Gastric mass ED Provider Note NAME: KRUPA MERRITT AGE: 57 SEX: M ARRIVES VIA: Walk-In INFORMANT: Patient ED PROVIDER(S): Fredi Gtz MD CHIEF COMPLAINT: Shortness of breath PLAN: Disposition: Admit MEDICAL DECISION MAKING: The patient is a pleasant 57-year-old gentleman with a past medical history of atrial fibrillation who had been on Xarelto but admits that he has been unable to afford it for the past several months, history of asthma in the setting of work exposure, hypertension, hyperlipidemia, diabetes who presents to the emergency department accompanied by his for evaluation of worsening shortness of breath in the setting of chronic shortness of breath over the past year, worsening over the past month and then severe today 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 He denies any chest pain with his shortness of breath or exertion. He does report frequently feeling bloated in stomach which she attributes to his acid reflux and a hiatal hernia. He denies any nausea, vomiting or diarrhea. On arrival the patient is fatigued appearing but no acute distress, afebrile with stable vital signs. He appears clinically dry. He has scant intermittent wheezes and lungs are otherwise clear. EKG without overt acute ischemia. CXR negative for acute cardiopulmonary process. WBC and normal limits. H/H 11.8/37.5 decreased from prior though no recent for comparison. Platelets 400K, nonspecific. Chemistry without metabolic acidosis. LFTs are newly elevated with total bilirubin 2.5, direct bilirubin 1.2, AST and ALT 112 and 151, respectively. Alk phos is elevated at 645. High-sensitivity troponin 3.9, within normal limits. Lipase is not elevated. COVID-[address] of the chest was performed and demonstrates subsegmental pulmonary embolus within the left upper lobe. Additional note is made of heterogeneity of the liver that is suspicious for metastatic disease with fullness at the GE junction further concerning. CT of the abdomen pelvis was subsequently obtained and further characterizes suspicion for metastatic disease with enlarged liver with innumerable hypodense masses and distal esophageal proximal gastric lesion with adjacent stranding and gastrohepatic/periaortic lymphadenopathy which may suggest primary tumor. PESI score high risk. The patient and agree with plan for admission for further evaluation. Case was discussed with JOSE R Zapata hospitalist, who will evaluate the patient for admission. Will defer anticoagulation to admitting team. Triage Nursing notes reviewed and agree them. Prior medical records reviewed Vital Signs: reviewed and remarkable for no significant abnormalities Differential diagnosis: Reactive airway disease, pneumonia, pneumothorax, COPD, CHF, infections, cardiac ischemia, pulmonary embolism, musculoskeletal, gastrointestinal, as well as other pathologies. ER treatment provided: See below. Diagnostics interpreted by me: ECG: Sinus rhythm with fusion complexes, 85 bpm, no overt ST elevation or depression, QTC 466, QRS 106 Cardiac Monitoring: An order for continuous cardiac monitoring was placed and demonstrated sinus rhythm with fusion complexes, 85 bpm Laboratory studies: See below Imaging studies: See below Consultation(s): Case was discussed with JOSE R Zapata hospitalist, who will evaluate the patient for admission. 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 He denies any chest pain with his shortness of breath or exertion. He does report frequently feeling bloated in stomach which she attributes to his acid reflux and a hiatal hernia. He denies any nausea, vomiting or diarrhea. ROS: See above HPI for pertinent positives & negatives. A total of 10 systems reviewed and were otherwise negative. VITALS:See Below PHYSICAL EXAMINATION: GENERAL: Awake, alert, fatigued-appearing, in no distress HENT: Normocephalic, atraumatic. Oropharynx with dry mucous membranes and otherwise unremarkable. EYES: Normal conjunctiva. Sclera non-icteric. NECK: Supple. No nuchal rigidity. FROM. No JVD. RESPIRATORY: Scant intermittent wheeze otherwise clear to auscultation. CARDIAC: Regular rate, normal rhythm. Extremities warm and well perfused. Pulses equal. ABDOMEN: Soft, non-distended. No tenderness to palpation. No rebound or guarding. RECTAL: Deferred. MUSCULOSKELETAL: Chest examination reveals no tenderness. The back is symmetrical on inspection without obvious abnormality. There is no CVA tenderness to palpation. No joint edema. LOWER EXTREMITIES: Calves are equal size bilaterally and non-tender. No edema. No discoloration. NEURO: Normal sensorium. No sensory or motor deficits noted. SKIN: No rash or jaundice noted. ED COURSE: Critical Care: I have personally spent greater than 35 minutes of critical care time in the direct management of this patient. This includes bedside care, interpretation of diagnostic studies, and testing, discussion with consultants, patient, and family members, and other required patient management activities. This 35 minutes is in excess of all separately billable procedures. Fredi Gtz MD Past Med/Surg History Medical History Asthma Cancer Chemical keratoconjunctivitis Corneal abrasion Diabetes Hyperplastic colon polyp Hypertension Laryngopharyngeal reflux Meniere's disease Obstructive sleep apnea Seizure Tubular adenoma of colon Surgical History H/O elbow surgery Family History Father Cancer Colon cancer Colorectal cancer Grandmother (Maternal) Diabetes Coronary heart disease Pacemaker Grandmother (Paternal) Cancer Colorectal cancer Colorectal cancer Grandmother (Maternal) Stroke Grandfather (Paternal) Cancer Aunt Colorectal cancer Other Heart disease Hypertension Seizure Denies family history of Ovarian cancer Prostate cancer Myocardial infarction Breast cancer Social History Smoking Status: Never smoker Second Hand Exposure: Yes; Hx Alcohol Use: Yes Alcohol Intake Frequency: Monthly or Less Hx Substance Use: No Preferred Language: Kyrgyz marital status: Current Living Situation: Spouse current occupational status: employed Feels Safe at Home: Yes caffeine: Yes (Coffee ) Dental Care, Regularly: No Physical Activity Frequency: Does not Exercise Seatbelt Use: never Sunscreen Use: No Allergies Allergies Allergy/AdvReac Type Severity Reaction Status Date / Time No Known Allergies Allergy Verified 07/25/22 15:50 Home Meds Home Medications Medication Instructions Recorded Confirmed omeprazole magnesium 20 mg 20 mg PO QAM 01/04/19 07/25/22 tablet,delayed release (Prilosec OTC) atorvastatin 20 mg tablet 20 mg PO QAM 07/25/22 07/25/22 diltiazem HCl 180 mg capsule,24 180 mg PO QAM 07/25/22 07/25/22 hr,extended release ibuprofen 600 mg tablet 1,500 mg PO TID PRN Pain 07/25/22 07/25/22 Previous Rx's Medication Instructions Recorded methocarbamol 750 mg tablet 750 mg PO Q8H PRN pain #60 tabs 08/04/21 albuterol sulfate 90 mcg/actuation 2 puff inhalation QID PRN 03/23/22 aerosol inhaler (Proventil HFA) Shortness Of Breath #18 grams fluticasone 113 mcg-salmeterol 14 1 inh inhalation Q12H #1 ea 03/23/22 mcg/actuation breath activated powdr metformin 1,000 mg tablet 1,000 mg PO BID #180 tabs 03/23/22 metoprolol tartrate 100 mg tablet 100 mg PO BID #180 tabs 03/23/22 rivaroxaban 20 mg tablet 20 mg PO QPM #90 tabs 03/23/22 triamterene 37.5 1 tab PO DAILY #90 tabs 03/23/22 mg-hydrochlorothiazide 25 mg tablet empagliflozin 10 mg tablet 10 mg PO DAILY #30 tabs 04/05/22 (Jardiance) meclizine 25 mg tablet 25 mg PO Q6H PRN nausea and motion 04/05/22 sickness #60 tabs flecainide 100 mg tablet 100 mg PO BID #180 tabs 04/07/22 Results & Data (ED) Vital Signs Vital Signs - 24 hr 07/25/22 11:50 07/25/22 12:34 07/25/22 13:20 Temperature 36.7 C Temperature Source Skin Pulse Rate 88 Pulse Rate [Apical] 86 Pulse Rate from SpO2 Sensor Pulse Rhythm Regular Pulse Rhythm [Apical] Regular Pulse Strength Normal Pulse Strength [Apical] Normal Respiratory Rate 20 18 Respiratory Effort / Characteristics Non-Labored Spontaneous Spontaneous Non-Labored Spontaneous Respiratory Depth Normal Normal Normal Respiratory Pattern Regular Regular Regular Blood Pressure 103/70 Blood Pressure [Left Arm] 108/75 Blood Pressure Mean 81 Blood Pressure Mean [Left Arm] 86 Blood Pressure Position [Left Arm] Semi-fowlers Pulse Oximetry 97 95 Oxygen Delivery Method Room Air Room Air Room Air Sepsis Recent Fever Within 48 Hours No Sepsis New/Unexplained Change in Mental Status N/A Sepsis Action Taken by Nursing No Action Required 07/25/22 12:30 07/25/22 14:30 07/25/22 17:00 Temperature Temperature Source Pulse Rate 85 86 Pulse Rate [Apical] Pulse Rate from SpO2 Sensor 85 Pulse Rhythm Pulse Rhythm [Apical] Pulse Strength Pulse Strength [Apical] Respiratory Rate 21 22 Respiratory Effort / Characteristics Respiratory Depth Respiratory Pattern Blood Pressure 122/75 131/83 Blood Pressure [Left Arm] Blood Pressure Mean 90 99 Blood Pressure Mean [Left Arm] Blood Pressure Position [Left Arm] Pulse Oximetry 96 Oxygen Delivery Method Sepsis Recent Fever Within 48 Hours Sepsis New/Unexplained Change in Mental Status Sepsis Action Taken by Nursing 07/25/22 17:00 Temperature Temperature Source Pulse Rate 84 Pulse Rate [Apical] Pulse Rate from SpO2 Sensor 84 Pulse Rhythm Pulse Rhythm [Apical] Pulse Strength Pulse Strength [Apical] Respiratory Rate 16 Respiratory Effort / Characteristics Respiratory Depth Respiratory Pattern Blood Pressure 131/83 Blood Pressure [Left Arm] Blood Pressure Mean 99 Blood Pressure Mean [Left Arm] Blood Pressure Position [Left Arm] Pulse Oximetry 96 Oxygen Delivery Method Sepsis Recent Fever Within 48 Hours Sepsis New/Unexplained Change in Mental Status Sepsis Action Taken by Nursing Laboratory Data Attestation: I reviewed the patient's lab results. Result diagrams: 07/25/22 12:22 07/25/22 12:22 Lab Results 07/25/22 07/25/22 07/25/22 Range/Units 12:22 12:22 12:22 WBC 9.48 (4.8-10.8) K/ul RBC 4.81 (4.63-6.08) M/uL Hgb 11.8 L (14.0-18.0) g/dl Hct 37.5 L (40.1-51.0) % MCV 78.0 L (80.0-100.0) fL MCH 24.5 L (25.0-34.0) pg MCHC 31.5 L (32.0-36.0) g/dL RDW Std Deviation 42.3 (36.4-46.3) fL RDW Coeff of Mo 15.0 H (11.5-14.5) % Plt Count 415 H (130-400) K/uL MPV 9.8 (9.4-12.4) fL Immature Gran % (Auto) 0.3 % Neut % (Auto) 82.8 % Lymph % (Auto) 8.6 % [place] % (Auto) 7.5 % Eos % (Auto) 0.6 % Baso % (Auto) 0.2 % Neut # (Auto) 7.84 H (1.4-6.5) K/uL Lymph # (Auto) 0.82 L (1.2-3.4) K/uL [place] # (Auto) 0.71 (0.24-0.82) K/uL Eos # (Auto) 0.06 (0-0.50) K/uL Baso # (Auto) 0.02 (0-0.2) K/uL Immature Gran # (Auto) 0.03 H (0.00-0.02) K/uL PT (9.0-12.0) Seconds INR (0.9-1.1) Sodium 131 L (136-145) mmol/L Potassium 3.9 (3.5-5.1) mmol/L Chloride 92 L (98-107) mmol/L Carbon Dioxide 26 (21-32) mmol/L Anion Gap 13 H (3-11) BUN 15 (6-23) mg/dl Creatinine 0.84 (0.6-1.4) mg/dl Est Cr Clr Drug Dosing 123.4 ml/min Est GFR ( Amer) 113.4 ml/min Est GFR (Non-Af Amer) 97.9 ml/min BUN/Creatinine Ratio 17.9 (10-20) Glucose 238 H (70-99(Fasting)) mg/dl Calcium 8.6 (8.5-10.1) mg/dl Phosphorus 3.9 (2.5-4.9) mg/dl Magnesium 1.9 (1.7-2.4) mg/dl Total Bilirubin 2.5 H (0.2-1.0) mg/dl Direct Bilirubin 1.2 H (0-0.2) mg/dl AST 112 H (13-39) U/L ALT 151 H (7-52) U/L Alkaline Phosphatase 645 H (34-104) U/L Troponin I High Sens 3.9 (0-20) pg/ml Total Protein 6.3 (6.0-8.3) gm/dl Albumin 3.4 (3.4-5.0) gm/dl Globulin 2.9 (2.5-4.0) gm/dl Albumin/Globulin Ratio 1.2 (0.9-2) Lipase 28 (11-82) U/L SARS-CoV-2 (PCR) (Negative) 07/25/22 07/25/22 Range/Units 12:30 18:34 WBC (4.8-10.8) K/ul RBC (4.63-6.08) M/uL Hgb (14.0-18.0) g/dl Hct (40.1-51.0) % MCV (80.0-100.0) fL MCH (25.0-34.0) pg MCHC (32.0-36.0) g/dL RDW Std Deviation (36.4-46.3) fL RDW Coeff of Mo (11.5-14.5) % Plt Count (130-400) K/uL MPV (9.4-12.4) fL Immature Gran % (Auto) % Neut % (Auto) % Lymph % (Auto) % [place] % (Auto) % Eos % (Auto) % Baso % (Auto) % Neut # (Auto) (1.4-6.5) K/uL Lymph # (Auto) (1.2-3.4) K/uL [place] # (Auto) (0.24-0.82) K/uL Eos # (Auto) (0-0.50) K/uL Baso # (Auto) (0-0.2) K/uL Immature Gran # (Auto) (0.00-0.02) K/uL PT 11.9 (9.0-12.0) Seconds INR 1.1 (0.9-1.1) Sodium (136-145) mmol/L Potassium (3.5-5.1) mmol/L Chloride (98-107) mmol/L Carbon Dioxide (21-32) mmol/L Anion Gap (3-11) BUN (6-23) mg/dl Creatinine (0.6-1.4) mg/dl Est Cr Clr Drug Dosing ml/min Est GFR ( Amer) ml/min Est GFR (Non-Af Amer) ml/min BUN/Creatinine Ratio (10-20) Glucose (70-99(Fasting)) mg/dl Calcium (8.5-10.1) mg/dl Phosphorus (2.5-4.9) mg/dl Magnesium (1.7-2.4) mg/dl Total Bilirubin (0.2-1.0) mg/dl Direct Bilirubin (0-0.2) mg/dl AST (13-39) U/L ALT (7-52) U/L Alkaline Phosphatase (34-104) U/L Troponin I High Sens (0-20) pg/ml Total Protein (6.0-8.3) gm/dl Albumin (3.4-5.0) gm/dl Globulin (2.5-4.0) gm/dl Albumin/Globulin Ratio (0.9-2) Lipase (11-82) U/L SARS-CoV-2 (PCR) NEGATIVE (Negative) Administered Medications Discontinued Medications Albuterol (Albut/Ipratrop 3mg/0.5mg Neb 3 Ml Vial) 3 ml NEB NOW STA; Protocol Stop: 07/25/22 12:56 Last Admin: 07/25/22 13:44 Dose: 3 ml Documented By: ERIN Guaifenesin (Guaifenesin 600 Mg Tabcr) 1,200 mg PO NOW STA Stop: 07/25/22 12:56 Last Admin: 07/25/22 13:44 Dose: 1,200 mg Documented By: ERIN Sodium Chloride (Nss) 500 mls @ 999 mls/hr IV .Q31M ONE Stop: 07/25/22 13:25 Last Infusion: 07/25/22 14:41 Dose: 0 mls/hr Documented By: Admin: 07/25/22 13:45 Dose: 999 mls/hr Documented By: ERIN Ioversol (Optiray 300 500ml) 114 ml IV ONCE ONE Stop: 07/25/22 13:38 Last Admin: 07/25/22 13:37 Dose: 114 ml Documented By: JIGNA Ioversol (Optiray 300 100ml) 45 ml IV ONCE ONE Stop: 07/25/22 16:07 Last Admin: 07/25/22 16:06 Dose: 45 ml Documented By: KATHY Methylprednisolone (Methylprednisolone 125 Mg/2 Ml Vial) 125 mg IV NOW STA Stop: 07/25/22 12:56 Last Admin: 07/25/22 13:44 Dose: 125 mg Documented By: ERIN Imaging Data Radiologist's Impression: Chest X-Ray 07/25/22 12:19 XR chest 1V portable CLINICAL HISTORY: Atypical chest pain. COMPARISON STUDY: Chest radiograph January 24, 2019. FINDINGS: Lung volumes are normal. No consolidation to suggest pneumonia. Linear right lower lung opacity reflects atelectasis. There is no pneumothorax or pleural effusion. Cardiac size is normal. Mediastinal contours are normal. There is no evidence for pulmonary edema. There is an old, healed right clavicular fracture. IMPRESSION: No acute cardiopulmonary findings. ACT 112: Negative or not required by law. Electronically signed by: Mahesh Ann M.D. 07/25/2022 12:43 PM Chest CTA 07/25/22 12:55 CT ANGIOGRAPHY OF THE CHEST, PULMONARY EMBOLUS PROTOCOL CLINICAL HISTORY: Shortness of breath. Evaluate for pulmonary embolus. COMPARISON STUDY: Chest radiograph performed earlier today. Chest CT December 01, 2014. CT of the abdomen January 16, 2015. TECHNIQUE: Following IV administration of 114 mL of Optiray, helical axial images of the chest were obtained utilizing the pulmonary embolus protocol. Maximal intensity projections and sagittal and coronal reformats were viewed on an independent 3D workstation. IV contrast was administered without com plication. Automated exposure control was utilized for the study. A dose lowering technique was utilized adhering to the principles of ALARA. CT DOSE: 608.42 mGy.cm FINDINGS: There is subsegmental pulmonary embolus within the anterior segment of the left upper lobe on axial image 131 of 273. Lower lobe pulmonary arteries are suboptimally assessed due to respiratory motion. No central pulmonary emboli are identified. There is no pulmonary infarct. Size the heart is normal. There is no pericardial effusion. There is no consolidation to suggest pneumonia. No suspicious lesions within the visualized bony thorax. Visualized portions of the upper abdomen demonstrate heterogeneity of the liver. The liver appears enl arged. There are multiple hypodense foci within the liver. A well-defined focus within the left lobe measures 3.2 cm. There is fullness at the gastroesophageal junction with possible adjacent stranding and possible visualized prominent gastrohepatic ligament lymph node. IMPRESSION: 1. Subsegmental pulmonary embolus within the left upper lobe, as described above. 2. Heterogeneity of the liver with multiple hypodense foci. Although partially imaged on this exam, this is worrisome for a neoplastic process such as meta static disease. Hepatic steatosis could appear similar. A CT of the abdomen and pelvis with IV contrast is recommended. 3. Fullness at the level of the GE junction with possible adjacent stranding and prominent lymph node. This can be assessed on CT. ACT 112: Positive. There are findings on this exam that require communication between the performing entity and the patient following Patient Test Result Information Act ([place] Act 112) guidelines. Electronically signed by: Mahesh Ann M.D. 07/25/2022 2:09 PM Abdomen/Pelvis CT 07/25/22 14:43 CT OF THE ABDOMEN AND PELVIS WITH CONTRAST CLINICAL HISTORY: transaminitis, eval liver COMPARISON STUDY: CT abdomen January 16, 2015. TECHNIQUE: Following IV administration of 45 mL of Optiray, axial images of the abdomen and pelvis were obtained from the lung bases to the proximal femurs. Images were reviewed in the axial, sagittal, and coronal planes. IV contrast was administered without complication. Automated exposure control was utilized for the study. A dose lowering technique was utilized adhering to the principles of ALARA. CT DOSE: 1093.56 mGy.cm FINDINGS: No pneumatosis, free air or portal venous gas is present. The liver is enlarged, measuring 25 cm in craniocaudal dimension. There is nodularity of the liver surface. Innumerable hypodense hepatic lesions are present. Index hypodense right hepatic lobe lesion measures 6.9 x 4.7 cm. A few these lesions contain faint calcifications. There is no biliary or pancreatic ductal dilatation. Spleen, adrenal glands, right kidney and pancreas are unremarkable. There is a 7.5 cm left renal cyst. There is no hydronephrosis. There is contrast within the ureters, bladder and collecting systems from recent contrast-enhanced CT. Bladder is distended. There is no evidence for a bowel obstruction. The ap pendix is normal. There is mild stranding adjacent to the gastric cardia. There is a possible lesion within the distal esophagus extending into the GE junction. There are multiple enlarged gastrohepatic ligament and para-aortic lymph nodes. Index gastrohepatic ligament lymph node on image 137 of 496 measures 1.3 x 1.2 cm. Index left para-aortic lymph node image 185 measures 1.6 x 1.2 cm. IMPRESSION: 1. Enlarged liver which contains innumerable hypodense masses. The findings are highly suggestive of metastatic disease. 2. Possible distal esophageal/proximal gastric lesion with adjacent stranding and gastrohepatic and para-aortic lymphadenopathy. This may reflect the primary tumor. GI consultation for consideration for upper endoscopy is recommended. ACT 112: Negative or not required by law. Electronically signed by: Mahesh Ann M.D. 07/25/2022 4:28 PM Discharge Plan Visit Data Chief Complaint: Respiratory Problems Stated Complaint: HARD BREATHING/IRRIATATING COUGH/CAN'T EAT ED Provider: Fredi Gtz Discharge Problem: Single subsegmental pulmonary embolism without acute cor pulmonale, Transaminitis, Mass of multiple sites of liver, Gastric mass Forms Stand Alone Forms: [facility] Prescriptions Prescriptions: No Action albuterol sulfate [Proventil HFA] 90 mcg/actuation HFA aerosol inhaler 2 puff INHALATION QID PRN (Reason: Shortness Of Breath) Qty: 18 5RF fluticasone propion-salmeterol 113-14 mcg/actuation aerosol powdr breath activated 1 inh inhalation Q12H Qty: 1 5RF metformin 1,000 mg tablet 1,000 mg PO BID Qty: 180 3RF metoprolol tartrate 100 mg tablet 100 mg PO BID Qty: 180 3RF rivaroxaban 20 mg tablet 20 mg PO QPM Qty: 90 3RF triamterene-hydrochlorothiazid 37.5-25 mg tablet 1 tab PO DAILY Qty: 90 3RF flecainide 100 mg tablet 100 mg PO BID Qty: 180 3RF Jardiance 10 mg tablet 10 mg PO DAILY Qty: 30 5RF meclizine 25 mg tablet 25 mg PO Q6H PRN (Reason: nausea and motion sickness) Qty: 60 5RF methocarbamol 750 mg tablet 750 mg PO Q8H PRN (Reason: pain) Qty: 60 5RF omeprazole magnesium [Prilosec OTC] 20 mg Tablet,Delayed Release (Dr/Ec) 20 mg PO QAM ibuprofen 600 mg Tablet 1,500 mg PO TID PRN (Reason: Pain) Rx Instructions: Last dose @1999 last night ( 07/24) atorvastatin 20 mg tablet 20 mg PO QAM diltiazem HCl 180 mg capsule,extended release 24 hr 180 mg PO QAM Referrals Referrals: Cesar Galvez DO [Primary Care Provider] -
--- NOTE | 2022-07-25 12:45 | XRay Report ---
XR chest 1V portable CLINICAL HISTORY: Atypical chest pain. COMPARISON STUDY: Chest radiograph January 24, 2019. FINDINGS: Lung volumes are normal. No consolidation to suggest pneumonia. Linear right lower lung opa city reflects atelectasis. There is no pneumothorax or pleural effusion. Cardiac size is normal. Medi astinal contours are normal. There is no evidence for pulmonary edema. There is an old, healed right clavicular fracture. IMPRESSION: No acute cardiopulmonary findings. ACT 112: Negative or not required by law. Electronically signed by: Mahesh Ann M.D. 07/25/2022 12:43 PM
[2022-07-25] MEDS ORDERED: SODIUM CHLORIDE 0.9% 500 ML IV ONE (12:55)
[2022-07-25] MEDS ORDERED: ALBUT/IPRATROP 3MG/0.5MG NEB 3 ML VIAL NEB STA (12:55)
[2022-07-25] MEDS ORDERED: guaiFENesin 600 MG TABCR PO STA (12:55)
[2022-07-25] MEDS ORDERED: methylPREDNISolone 125 MG/2 ML VIAL IV STA (12:55)
[2022-07-25 13:01] LABS: Albumin Globulin Ratio 1.2 (0.9-2); Albumin Level 3.4 gm/dl (3.4-5.0); BUN Creatinine Ratio 17.9 (10-20); Bilirubin,Total 2.5 mg/dl (0.2-1.0); Calcium 8.6 mg/dl (8.5-10.1); Creatinine Clr Calc Pharmacy 123.4 ml/min; Est GFR (African American) 113.4 ml/min; Est GFR (Non-African American) 97.9 ml/min; Globulin 2.9 gm/dl (2.5-4.0); Magnesium 1.9 mg/dl (1.7-2.4); Phosphorus 3.9 mg/dl (2.5-4.9); Potassium 3.9 mmol/L (3.5-5.1); Total Protein 6.3 gm/dl (6.0-8.3)
[2022-07-25 13:06] LABS: Troponin I High Sensitivity 3.9 pg/ml (0-20)
[2022-07-25] MEDS ORDERED: OPTIRAY 300 500mL IV ONE (13:37)
--- NOTE | 2022-07-25 14:11 | CT Scan Report ---
CT ANGIOGRAPHY OF THE CHEST, PULMONARY EMBOLUS PROTOCOL CLINICAL HISTORY: Shortness of breath. Evaluate for pulmonary embolus. COMPARISON STUDY: Chest radiograph performed earlier today. Chest CT December 01, 2014. CT of the abd omen January 16, 2015. TECHNIQUE: Following IV administration of 114 mL of Optiray, helical axial images of the chest were o btained utilizing the pulmonary embolus protocol. Maximal intensity projections and sagittal and cor onal reformats were viewed on an independent 3D workstation. IV contrast was administered without co mplication. Automated exposure control was utilized for the study. A dose lowering technique was ut ilized adhering to the principles of ALARA. CT DOSE: 608.42 mGy.cm FINDINGS: There is subsegmental pulmonary embolus within the anterior segment of the left upper lobe on axial image 131 of 273. Lower lobe pulmonary arteries are suboptimally assessed due to respiratory motion. No central pulmonary emboli are identified. There is no pulmonary infarct. Size the heart is normal. There is no pericardial effusion. There is no consolidation to suggest pneumonia. No suspici ous lesions within the visualized bony thorax. Visualized portions of the upper abdomen demonstrate h eterogeneity of the liver. The liver appears enlarged. There are multiple hypodense foci within the l iver. A well-defined focus within the left lobe measures 3.2 cm. There is fullness at the gastroesoph ageal junction with possible adjacent stranding and possible visualized prominent gastrohepatic ligam ent lymph node. IMPRESSION: 1. Subsegmental pulmonary embolus within the left upper lobe, as described above. 2. Heterogeneity of the liver with multiple hypodense foci. Although partially imaged on this exam, t his is worrisome for a neoplastic process such as metastatic disease. Hepatic steatosis could appear similar. A CT of the abdomen and pelvis with IV contrast is recommended. 3. Fullness at the level of the GE junction with possible adjacent stranding and prominent lymph node . This can be assessed on CT. ACT 112: Positive. There are findings on this exam that require communication between the performing entity and the patient following Patient Test Result Information Act ([place] Act 112) guidelines. Electronically signed by: Mahesh Ann M.D. 07/25/2022 2:09 PM
[2022-07-25] MEDS ORDERED: OPTIRAY 300 100mL IV ONE (16:06)
--- NOTE | 2022-07-25 16:30 | CT Scan Report ---
CT OF THE ABDOMEN AND PELVIS WITH CONTRAST CLINICAL HISTORY: transaminitis, eval liver COMPARISON STUDY: CT abdomen January 16, 2015. TECHNIQUE: Following IV administration of 45 mL of Optiray, axial images of the abdomen and pelvis we re obtained from the lung bases to the proximal femurs. Images were reviewed in the axial, sagittal, and coronal planes. IV contrast was administered without complication. Automated exposure control wa s utilized for the study. A dose lowering technique was utilized adhering to the principles of ALARA . CT DOSE: 1093.56 mGy.cm FINDINGS: No pneumatosis, free air or portal venous gas is present. The liver is enlarged, measuring 25 cm in craniocaudal dimension. There is nodularity of the liver surface. Innumerable hypodense hepa tic lesions are present. Index hypodense right hepatic lobe lesion measures 6.9 x 4.7 cm. A few these lesions contain faint calcifications. There is no biliary or pancreatic ductal dilatation. Spleen, a drenal glands, right kidney and pancreas are unremarkable. There is a 7.5 cm left renal cyst. There i s no hydronephrosis. There is contrast within the ureters, bladder and collecting systems from recent contrast-enhanced CT. Bladder is distended. There is no evidence for a bowel obstruction. The append ix is normal. There is mild stranding adjacent to the gastric cardia. There is a possible lesion with in the distal esophagus extending into the GE junction. There are multiple enlarged gastrohepatic lig ament and para-aortic lymph nodes. Index gastrohepatic ligament lymph node on image 137 of 496 measur es 1.3 x 1.2 cm. Index left para-aortic lymph node image 185 measures 1.6 x 1.2 cm. IMPRESSION: 1. Enlarged liver which contains innumerable hypodense masses. The findings are highly suggestive of metastatic disease. 2. Possible distal esophageal/proximal gastric lesion with adjacent stranding and gastrohepatic and p shazia-aortic lymphadenopathy. This may reflect the primary tumor. GI consultation for consideration for upper endoscopy is recommended. ACT 112: Negative or not required by law. Electronically signed by: Mahesh Ann M.D. 07/25/2022 4:28 PM
--- NOTE | 2022-07-25 16:58 | History & Physical Report ---
Date of Service July 25, 2022 Assessment & Plan (1) Mass of multiple sites of liver: Plan: Presumed metastatic disease. Patient was informed of this in the ER. - Patient is afebrile, hemodynamically stable, and stable on room air - No signs or symptoms to suggest acute liver failure - Patient will need continued workup for the lesions found in the liver and at the GE junction, patient would prefer to be admitted and have this done inpatient, will consult GI - Will obtain PT/INR now - Will make NPO except meds after 2400 for possible procedures tomorrow - AM CBC, CMP, PT/INR (2) Gastric mass: Plan: -See liver masses and transaminitis -NPO except meds after 2400 (3) Transaminitis: Plan: Likely due to the new liver lesions found on CTA of the abdomen and pelvis today. - No biliary or pancreatic duct dilation noted on imaging today - See Liver masses for remainder of plan (4) Single subsegmental pulmonary embolism without acute cor pulmonale: Plan: -Patient noted to have a left upper lobe subsegmental PE -Patient has multiple risk factors right now including possible active malignancy and being off [employer] Xarelto -Current stable on RA and hemodynamically stable, no sign of heart strain of CT or ECG -While patient is stable on RA and subsegmental PE does not necessitate anticoagulation, patient has been off [employer]INE [employer] Xarelto for months and is high risk for further embolic events -Will start patient on heparin drip for now in case he has a procedure in the near future, would then switch patient back to [employer]INE [employer] Xarelto prior to discharge, he now has a Xarelto card courtsey of the ED (5) Obesity, diabetes, and hypertension syndrome: Plan: -Continue [employer]INE [employer] diltiazem, triamterene-HCTZ, metoprolol -Will hold oral antihyperglycemics, >Start with correction factor of 20 and carb ratio of 7 (6) Atrial fibrillation: Plan: -Currently rate controlled, continue [employer] metoprolol, diltiazem, and flecanide -Patient was given Xarelto card by the ED, see subsegmental PE for dosing recommendations on discharge -Heparin drip for now (7) Dyslipidemia: Plan: -Hold [employer] statin with current transaminitis (8) Asthma: Plan: -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 Stanford at the time of admisison History of Present Illness Chief Complaint: Shortness of breath Primary Care Provider: Cesar Galvez DO Abad is a 57 year old male with a PMH significant for afib (previously on xarelto but has not been able to afford it), asthma in the setting of work exposure, hypertension, hyperlipidemia, diabetes II, HORACIO, and BPV who presented to the [facility] ED on 07/25/22 with a chief complaint of SOB. In the ED the patient was found to be afebrile, hemodynamically stable, and stable on room air. Labs were significant for a total bili of 2.5, direct bili of 1.2, AST of 112, ALT of 151, and alk phos of 645. Chest xray was negative for acute findings but CTA of the chest revealed a Subsegmental pulmonary embolus within the left upper lobe. The CTA chest was also showing concerning findings suggestive of possible malignancy/mets to the liver so a CTA of the abdomen and pelvis was also obtained. CTA of the abdomen and pelvis with contrast revealed an enlarged liver with innumerable hypodense masses. It also showed possible distal esophageal/proximal gastric lesion with adjacent stranding and gastrohepatic and para-aortic lymphadenopathy. This may reflect the primary tumor.In the ED the patient was given breathing treatments, Robitussin, 125 mg IV methylprednisone, and 1L NSS bolus. At the time of the exam the patient was sitting comfortably in bed in no acute distress with his sitting bedside. He states that he has been experiencing right upper/lower abdominal pain, epigastric pain, SOB, early sa tiety, and poor appetite for approximately 1-2 months. 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 He states that he eats much less than usual as he experiences discomfort and early satiety. When asked he states that he has been having watery diarrhea for about the last 2-3 months. He denies bloody or dark stools and describes his diarrhea as watery and brown. He has a family history of colon and recal cancer, of which, his father, paternal grandmother, and sister all from. He has had multiple colonoscopies in the past, he believes his last colonoscopy was about 2-3 years ago and remembers that they took of biopsy of "something" during the procedure.He has had an EGD in the past which revealed GERD and a hiatal hernia per the patient. The patient and his are usure of which GI group they follow with. He denies a history of frequent alcohol use, personal history of previous cancer, recreational drug use, and smoking. Allergies Allergy/AdvReac Type Severity Reaction Status Date / Time No Known Allergies Allergy Verified 07/25/22 15:50 Home Medications Medication Instructions Recorded Confirmed Type omeprazole magnesium 20 mg 20 mg PO QAM 01/04/19 07/25/22 History tablet,delayed release (Prilosec OTC) methocarbamol 750 mg tablet 750 mg PO Q8H PRN pain #60 tabs 08/04/21 07/25/22 Rx albuterol sulfate 90 mcg/actuation 2 puff inhalation QID PRN 03/23/22 07/25/22 Rx aerosol inhaler (Proventil HFA) Shortness Of Breath #18 grams fluticasone 113 mcg-salmeterol 14 1 inh inhalation Q12H #1 ea 03/23/22 07/25/22 Rx mcg/actuation breath activated powdr metformin 1,000 mg tablet 1,000 mg PO BID #180 tabs 03/23/22 07/25/22 Rx metoprolol tartrate 100 mg tablet 100 mg PO BID #180 tabs 03/23/22 07/25/22 Rx rivaroxaban 20 mg tablet 20 mg PO QPM #90 tabs 03/23/22 07/25/22 Rx triamterene 37.5 1 tab PO DAILY #90 tabs 03/23/22 07/25/22 Rx mg-hydrochlorothiazide 25 mg tablet empagliflozin 10 mg tablet 10 mg PO DAILY #30 tabs 04/05/22 07/25/22 Rx (Jardiance) meclizine 25 mg tablet 25 mg PO Q6H PRN nausea and motion 04/05/22 07/25/22 Rx sickness #60 tabs flecainide 100 mg tablet 100 mg PO BID #180 tabs 04/07/22 07/25/22 Rx atorvastatin 20 mg tablet 20 mg PO QAM 07/25/22 07/25/22 History diltiazem HCl 180 mg capsule,24 180 mg PO QAM 07/25/22 07/25/22 History hr,extended release ibuprofen 600 mg tablet 1,500 mg PO TID PRN Pain 07/25/22 07/25/22 History Past Med/Surg History Medical History Cancer Chemical keratoconjunctivitis Corneal abrasion Diabetes Hyperplastic colon polyp Hypertension Laryngopharyngeal reflux Meniere's disease Obstructive sleep apnea Seizure Tubular adenoma of colon Surgical History H/O elbow surgery Family History Father Cancer Colon cancer Colorectal cancer Grandmother (Maternal) Diabetes Coronary heart disease Pacemaker Grandmother (Paternal) Cancer Colorectal cancer Colorectal cancer Grandmother (Maternal) Stroke Grandfather (Paternal) Cancer Aunt Colorectal cancer Other Heart disease Hypertension Seizure Denies family history of Ovarian cancer Prostate cancer Myocardial infarction Breast cancer Social History Smoking Status: Never smoker Second Hand Exposure: Yes; Hx Alcohol Use: Yes Alcohol Intake Frequency: Monthly or Less Hx Substance Use: No Preferred Language: Filipino marital status: Current Living Situation: Spouse current occupational status: employed Feels Safe at Home: Yes caffeine: Yes (Coffee ) Dental Care, Regularly: No Physical Activity Frequency: Does not Exercise Seatbelt Use: never Sunscreen Use: No Review of Systems Review of Systems: Denies current fever, chills, headache, changes in vision, hearing, taste, and smell, chest pain, SOB, cough, abdominal nausea, vomiting, hematemesis, melena, dysuria, hematuria, and recent falls. All systems have been reviewed and are otherwise negative. Physical Exam Physical Exam: Physical Exam: General: In no acute distress, stated age, malnourished, poor hygiene, non- toxic appearing HEENT: Normocephalic, atraumatic, trace scleral icterus, pupils around round, symmetrical, and reactive to light, dry mucus membranes, trachea midline, no thyromegaly Chest/Pulm: No respiratory distress, symmetrical chest expansion, clear breath sounds throughout Cardiac: Irregular rate and rhythm, no murmurs noted Abdomen: Obese abdomen, Negative for bruising, normoactive bowel sounds, soft, tender to palpation in the epigastric and RUQ with hepatomegaly noted Musculoskeletal: Symmetrical and without signs of acute trauma, upper and lower extremities with full ROM, no atrophy, spasticity, or flaccidity Extremities: Radial, dorsalis pedis, and posterior tibial pulses are intact and symmetrical, no edema noted in the BL LE's Skin: Warm, dry, no rashes , lesions, or scars noted Neuro: Alert and oriented to person, place, month, year, and president, no focal defects, CN II-XII tested and intact, finger to nose test negative, no tremors noted Psych: No acute distress, calm and cooperative during the exam Results & Data Results & Data ([facility]) Vital Signs (Past 12 Hours) Vital Signs Temp Pulse Pulse Resp BP BP Pulse Ox 07/25/22 13:20 86 18 108/75 95 07/25/22 12:34 07/25/22 11:50 36.7 C 88 20 103/70 97 O2 Del Method 07/25/22 13:20 Room Air 07/25/22 12:34 Room Air 07/25/22 11:50 Room Air Laboratory Results Abnormal lab results 07/25/22 07/25/22 07/25/22 Range/Units 12:22 12:22 12:22 Hgb 11.8 L (14.0-18.0) g/dl Hct 37.5 L (40.1-51.0) % MCV 78.0 L (80.0-100.0) fL MCH 24.5 L (25.0-34.0) pg MCHC 31.5 L (32.0-36.0) g/dL RDW Coeff of Mo 15.0 H (11.5-14.5) % Plt Count 415 H (130-400) K/uL Neut # (Auto) 7.84 H (1.4-6.5) K/uL Lymph # (Auto) 0.82 L (1.2-3.4) K/uL Immature Gran # (Auto) 0.03 H (0.00-0.02) K/uL Sodium 131 L (136-145) mmol/L Chloride 92 L (98-107) mmol/L Anion Gap 13 H (3-11) Glucose 238 H (70-99(Fasting)) mg/dl Total Bilirubin 2.5 H (0.2-1.0) mg/dl Direct Bilirubin 1.2 H (0-0.2) mg/dl AST 112 H (13-39) U/L ALT 151 H (7-52) U/L Alkaline Phosphatase 645 H (34-104) U/L Diagnostic Findings Chest X-Ray 07/25/22 12:19 XR chest 1V portable CLINICAL HISTORY: Atypical chest pain. COMPARISON STUDY: Chest radiograph January 24, 2019. FINDINGS: Lung volumes are normal. No consolidation to suggest pneumonia. Linear right lower lung opacity reflects atelectasis. There is no pneumothorax or pleural effusion. Cardiac size is normal. Mediastinal contours are normal. There is no evidence for pulmonary edema. There is an old, healed right clavicular fracture. IMPRESSION: No acute cardiopulmonary findings. ACT 112: Negative or not required by law. Electronically signed by: Mahesh Ann M.D. 07/25/2022 12:43 PM Chest CTA 07/25/22 12:55 CT ANGIOGRAPHY OF THE CHEST, PULMONARY EMBOLUS PROTOCOL CLINICAL HISTORY: Shortness of breath. Evaluate for pulmonary embolus. COMPARISON STUDY: Chest radiograph performed earlier today. Chest CT December 01, 2014. CT of the abdomen January 16, 2015. TECHNIQUE: Following IV administration of 114 mL of Optiray, helical axial images of the chest were obtained utilizing the pulmonary embolus protocol. Maximal intensity projections and sagittal and coronal reformats were viewed on an independent 3D workstation. IV contrast was administered without complication. Automated exposure control was utilized for the study. A dose lowering technique was utilized adhering to the principles of ALARA. CT DOSE: 608.42 mGy.cm FINDINGS: There is subsegmental pulmonary embolus within the anterior segment of the left upper lobe on axial image 131 of 273. Lower lobe pulmonary arteries are suboptimally assessed due to respiratory motion. No central pulmonary emboli are identified. There is no pulmonary infarct. Size the heart is normal. There is no pericardial effusion. There is no consolidation to suggest pneumonia. No suspicious lesions within the visualized bony thorax. Visualized portions of the upper abdomen demonstrate heterogeneity of the liver. The liver appears enlarged. There are multiple hypodense foci within the liver. A well-defined focus within the left lobe measures 3.2 cm. There is fullness at the gastroesophageal junction with possible adjacent stranding and possible visualized prominent gastrohepatic ligament lymph node. IMPRESSION: 1. Subsegmental pulmonary embolus within the left upper lobe, as described above. 2. Heterogeneity of the liver with multiple hypodense foci. Although partially imaged on this exam, this is worrisome for a neoplastic process such as metastatic disease. Hepatic steatosis could appear similar. A CT of the abdomen and pelvis with IV contrast is recommended. 3. Fullness at the level of the GE junction with possible adjacent stranding and prominent lymph node. This can be assessed on CT. ACT 112: Positive. There are findings on this exam that require communication between the performing entity and the patient following Patient Test Result Information Act ([place] Act 112) guidelines. Electronically signed by: Mahesh Ann M.D. 07/25/2022 2:09 PM Abdomen/Pelvis CT 07/25/22 14:43 CT OF THE ABDOMEN AND PELVIS WITH CONTRAST CLINICAL HISTORY: transaminitis, eval liver COMPARISON STUDY: CT abdomen January 16, 2015. TECHNIQUE: Following IV administration of 45 mL of Optiray, axial images of the abdomen and pelvis were obtained from the lung bases to the proximal femurs. Images were reviewed in the axial, sagittal, and coronal planes. IV contrast was administered without complication. Automated exposure control was utilized for the study. A dose lowering technique was utilized adhering to the principles of ALARA. CT DOSE: 1093.56 mGy.cm FINDINGS: No pneumatosis, free air or portal venous gas is present. The liver is enlarged, measuring 25 cm in craniocaudal dimension. There is nodularity of the liver surface. Innumerable hypodense hepatic lesions are present. Index hypodense right hepatic lobe lesion measures 6.9 x 4.7 cm. A few these lesions contain faint calcifications. There is no biliary or pancreatic ductal dilatation. Spleen, adrenal glands, right kidney and pancreas are unremarkable. There is a 7.5 cm left renal cyst. There is no hydronephrosis. There is contrast within the ureters, bladder and collecting systems from recent contrast-enhanced CT. Bladder is distended. There is no evidence for a bowel obstruction. The appendix is normal. There is mild stranding adjacent to the gastric cardia. There is a possible lesion within the distal esophagus extending into the GE junction. There are multiple enlarged gastrohepatic ligament and para-aortic lymph nodes. Index gastrohepatic ligament lymph node on image 137 of 496 measures 1.3 x 1.2 cm. Index left para-aortic lymph node image 185 measures 1.6 x 1.2 cm. IMPRESSION: 1. Enlarged liver which contains innumerable hypodense masses. The findings are highly suggestive of metastatic disease. 2. Possible distal esophageal/proximal gastric lesion with adjacent stranding and gastrohepatic and para-aortic lymphadenopathy. This may reflect the primary tumor. GI consultation for consideration for upper endoscopy is recommended. ACT 112: Negative or not required by law. Electronically signed by: Mahesh Ann M.D. 07/25/2022 4:28 PM ECG Additional Comments: Sinus rhythm with Fusion complexes Otherwise normal ECG When compared with ECG of 24-JAN-2019 14:32, Sinus rhythm has replaced Atrial fibrillation QT has lengthened Code Status & VTE Plan Code Status Full code VTE Prophylaxis Plan VTE Prophylaxis will be ordered: Yes Supervising Physician Co-Signing Physician Notes I supervised Christiano Johnson PA-C on this admission. I interviewed and examined the patient independently of him. The plan is as written in his note except for any following changes/exceptions: None 57yo M w/ hx of afib who presents with likely metastatic cancer (possibly from a gastric source). Has been feeling more shortness of breath at work and sensation of fullness with eating. CT a/p shows innumerable lesions. Possible lesion at the GE junction. Small PE noted on CTA. Will treat with heparin gtt to start and make NPO @ midnight for possible EGD if able. Patient willing to stay. Severity of his disease was discussed with him and his . PG Care Time/CCT Total # of Minutes Spent Total Time Spent with Patient: Total time spent is greater than 50% in coordination of care (as documented) at patient's floor/unit and/or counseling patient: Coding [place] [address] Initial Inpt Care Lvl 3 Patient Type Established Medical Decision Making Moderate Complexity Diagnoses Mass of multiple sites of liver R16.0 Gastric mass K31.89 Transaminitis R74.01 Single subsegmental pulmonary embolism without acute cor pulmonale I26.93 Obesity, diabetes, and hypertension syndrome E11.69; E11.59; E66.9; I15.2 Atrial fibrillation I48.91 Dyslipidemia E78.5 Asthma J45.909
[2022-07-25 19:02] LABS: INR 1.1 (0.9-1.1); Prothrombin Time 11.9 Seconds (9.0-12.0)
[2022-07-25] MEDS ORDERED: GLUCOSE 40% GEL 15 GM TUBE PO PRN (21:25)
[2022-07-25] MEDS ORDERED: MECLIZINE HCL 25 MG TAB PO PRN (21:25)
[2022-07-25] MEDS ORDERED: GLUCAGON FOR INJ 1 MG VIAL SQ PRN (21:25)
[2022-07-25] MEDS ORDERED: CARBOHYDRATES FOR HYPOGLYCEMIA PO PRN (21:25)
[2022-07-25] MEDS ORDERED: ALBUTEROL HFA 8 GM INHALER INH PRN (21:25)
[2022-07-25] MEDS ORDERED: ONDANSETRON INJ 2 MG/ML 2 ML VIAL IV PRN (21:25)
[2022-07-25] MEDS ORDERED: HEPARIN SODIUM/DEXTROSE 25,000 UNITS/500 ML BAG IV SCH (21:25)
[2022-07-25] MEDS ORDERED: GLUCOSE 10 TAB/TUBE PO PRN (21:25)
[2022-07-25] MEDS ORDERED: DEXTROSE 50% 50 ML SYRINGE IV PRN (21:25)
[2022-07-25] MEDS ORDERED: NON-FORMULARY MEDICATION (Fluticasone Propion-Salmeterol 113-14 mcg/actuation aerosol powd INH SCH (21:25)
[2022-07-25] MEDS ORDERED: Heparin IV Adult Wt-Based Standard WITH Bolus Protocol IV SCH (21:29)
[2022-07-25] MEDS ORDERED: HEPARIN SOD (PORCINE) 1000 UNIT/ML IV ONE (22:15)
[2022-07-25] MEDS: INSULIN ASPART PER UNIT SC SCH (22:30)
[2022-07-25] MEDS: FLECAINIDE ACETATE 100 MG TABLET PO SCH (22:44)
[2022-07-25] MEDS: METOPROLOL TARTRATE 100 MG TAB PO SCH (22:45)
[2022-07-25] MEDS: FLUTICASONE/VILANTEROL 100/25MCG 14 PUFFS/INHALER INH SCH (22:45)
[2022-07-25 22:59] LABS: Partial Thromboplastin Ratio 1.1; Partial Thromboplastin Time 29.9 Seconds (21.0-31.0)
[2022-07-26 06:11] LABS: Hemoglobin 11.7 g/dl (14.0-18.0); Mean Corpuscular Hemoglobin 24.4 pg (25.0-34.0); Mean Corpuscular Hgb Conc 31.6 g/dL (32.0-36.0); Mean Corpuscular Volume 77.2 fL (80.0-100.0); Mean Platelet Volume 9.5 fL (9.4-12.4); Platelet Count 426 K/uL (130-400); RDW Coefficient of Variation 15.2 % (11.5-14.5); RDW Standard Deviation 41.8 fL (36.4-46.3); Red Blood Count 4.79 M/uL (4.63-6.08); White Blood Count 11.67 K/ul (4.8-10.8)
[2022-07-26 06:26] LABS: INR 1.1 (0.9-1.1); Partial Thromboplastin Ratio 1.6; Partial Thromboplastin Time 44.4 Seconds (21.0-31.0); Prothrombin Time 11.8 Seconds (9.0-12.0)
[2022-07-26] MEDS: INSULIN ASPART PER UNIT SC SCH ×4 (06:28→20:54)
[2022-07-26 06:40] LABS: Albumin Globulin Ratio 1.2 (0.9-2); Albumin Level 3.3 gm/dl (3.4-5.0); BUN Creatinine Ratio 23.8 (10-20); Bilirubin,Total 1.8 mg/dl (0.2-1.0); Calcium 8.5 mg/dl (8.5-10.1); Creatinine Clr Calc Pharmacy 165.4 ml/min; Est GFR (African American) 127.7 ml/min; Est GFR (Non-African American) 110.2 ml/min; Globulin 2.8 gm/dl (2.5-4.0); Potassium 3.8 mmol/L (3.5-5.1); Total Protein 6.1 gm/dl (6.0-8.3)
[2022-07-26] MEDS: FLUTICASONE/VILANTEROL 100/25MCG 14 PUFFS/INHALER INH SCH (08:30)
[2022-07-26] MEDS: dilTIAZem ER 180 MG CAPCR PO SCH (08:30)
[2022-07-26] MEDS: METOPROLOL TARTRATE 100 MG TAB PO SCH ×2 (08:30→20:54)
[2022-07-26] MEDS: FLECAINIDE ACETATE 100 MG TABLET PO SCH ×2 (08:30→20:54)
[2022-07-26] MEDS: PANTOprazole 40 MG TAB PO SCH (08:31)
[2022-07-26] MEDS: TRIAMTERENE/HCTZ 37.5/25MG TAB PO SCH (08:31)
--- NOTE | 2022-07-26 09:40 | Gastrointestinal Consultation ---
Date of Consultation July 26, 2022 Assessment & Plan (1) Gastric mass: He has CT evidence of lesion at EG junction. He needs evaluation with EGD. I have discussed the procedure and risks for EGD with him. He agrees. (2) Mass of multiple sites of liver: More than likely related to #1 (3) Transaminitis: More than likely related to #2 History of Present Illness Reason for Consultation: abnormal CT Attending Physician: Dmitry Lake MD History of Present Illness 57 year old man who was admitted with SOB and found to have PE. On workup he was also found to have a lesion at his EG junction and evidence of metastatic disease to the liver. He has been having painful swallowing for the last two to three months. He denies dysphagia though. He does have about 15 pounds of weight loss. He had an EGD in the past but it was many years ago. He has a history of heartburn and does take OTC PPI. His last colonoscopy was about five years ago but he does not recall who did it. Allergies Allergy/AdvReac Type Severity Reaction Status Date / Time No Known Allergies Allergy Verified 07/25/22 15:50 Home Medications Medication Instructions Recorded Confirmed Type omeprazole magnesium 20 mg 20 mg PO QAM 01/04/19 07/25/22 History tablet,delayed release (Prilosec OTC) methocarbamol 750 mg tablet 750 mg PO Q8H PRN pain #60 tabs 08/04/21 07/25/22 Rx albuterol sulfate 90 mcg/actuation 2 puff inhalation QID PRN 03/23/22 07/25/22 Rx aerosol inhaler (Proventil HFA) Shortness Of Breath #18 grams fluticasone 113 mcg-salmeterol 14 1 inh inhalation Q12H #1 ea 03/23/22 07/25/22 Rx mcg/actuation breath activated powdr metformin 1,000 mg tablet 1,000 mg PO BID #180 tabs 03/23/22 07/25/22 Rx metoprolol tartrate 100 mg tablet 100 mg PO BID #180 tabs 03/23/22 07/25/22 Rx rivaroxaban 20 mg tablet 20 mg PO QPM #90 tabs 03/23/22 07/25/22 Rx triamterene 37.5 1 tab PO DAILY #90 tabs 03/23/22 07/25/22 Rx mg-hydrochlorothiazide 25 mg tablet empagliflozin 10 mg tablet 10 mg PO DAILY #30 tabs 04/05/22 07/25/22 Rx (Jardiance) meclizine 25 mg tablet 25 mg PO Q6H PRN nausea and motion 04/05/22 07/25/22 Rx sickness #60 tabs flecainide 100 mg tablet 100 mg PO BID #180 tabs 04/07/22 07/25/22 Rx atorvastatin 20 mg tablet 20 mg PO QAM 07/25/22 07/25/22 History diltiazem HCl 180 mg capsule,24 180 mg PO QAM 07/25/22 07/25/22 History hr,extended release ibuprofen 600 mg tablet 1,500 mg PO TID PRN Pain 07/25/22 07/25/22 History Patient History Medical History Asthma Cancer Chemical keratoconjunctivitis Corneal abrasion Diabetes Hyperplastic colon polyp Hypertension Laryngopharyngeal reflux Meniere's disease Obstructive sleep apnea Seizure Tubular adenoma of colon Surgical History H/O elbow surgery Family History Father Cancer Colon cancer Colorectal cancer Grandmother (Maternal) Diabetes Coronary heart disease Pacemaker Grandmother (Paternal) Cancer Colorectal cancer Colorectal cancer Grandmother (Maternal) Stroke Grandfather (Paternal) Cancer Aunt Colorectal cancer Other Heart disease Hypertension Seizure Denies family history of Ovarian cancer Prostate cancer Myocardial infarction Breast cancer Social History Smoking Status: Never smoker Second Hand Exposure: Yes; Hx Alcohol Use: Yes Alcohol type: beer Alcohol Intake Frequency: Monthly or Less Hx Substance Use: No Preferred Language: Khmer Human Services Care Specialist Required: No Beliefs That Will Affect Care: None marital status: Current Living Situation: Spouse Current Living Situation Comment: lives with in a mobile home current occupational status: employed Other Information That Helps Us Care for You: No Feels Safe at Home: Yes Safety Concerns: Feels Safe At This Time caffeine: Yes (Coffee ) Dental Care, Regularly: No Physical Activity Frequency: Does not Exercise Seatbelt Use: never Sunscreen Use: No Assistive Devices: Glasses Review of Systems Review of Systems: All systems reviewed & are unremarkable except as noted in HPI & below Physical Exam Constitutional: WD/WN, vitals as above no acute distress Eyes: PERRL, conjunctivae normal, anicteric sclerae ENMT: external ear and nose normal, oropharynx normal Neck: trachea midline, no thyromegaly Respiratory: normal respiratory effort, lungs clear to auscultation Cardiovascular: RRR, no murmur, no edema Gastrointestinal (Abdomen): normal bowel sounds, soft, nontender, no hepatosplenomegaly Musculoskeletal: Extremities: no cyanosis and no clubbing Skin: no rashes, warm and dry Neurologic: PERRL, EOMI, accommodation nl, no face palsy, no dysarthria Psychiatric: Orientation: alert and oriented x 3 Results & Data ([facility]) Vital Signs (Past 12 Hours) Vital Signs Temp Pulse Resp BP Pulse Ox O2 Del Method 07/26/22 08:34 Room Air 07/26/22 07:35 36.8 C 76 16 138/84 92 Diagnostic Findings Chest X-Ray 07/25/22 12:19 XR chest 1V portable CLINICAL HISTORY: Atypical chest pain. COMPARISON STUDY: Chest radiograph January 24, 2019. FINDINGS: Lung volumes are normal. No consolidation to suggest pneumonia. Linear right lower lung opacity reflects atelectasis. There is no pneumothorax or pleural effusion. Cardiac size is normal. Mediastinal contours are normal. There is no evidence for pulmonary edema. There is an old, healed right clavicular fracture. IMPRESSION: No acute cardiopulmonary findings. ACT 112: Negative or not required by law. Electronically signed by: Mahesh Ann M.D. 07/25/2022 12:43 PM Chest CTA 07/25/22 12:55 CT ANGIOGRAPHY OF THE CHEST, PULMONARY EMBOLUS PROTOCOL CLINICAL HISTORY: Shortness of breath. Evaluate for pulmonary embolus. COMPARISON STUDY: Chest radiograph performed earlier today. Chest CT December 01, 2014. CT of the abdomen January 16, 2015. TECHNIQUE: Following IV administration of 114 mL of Optiray, helical axial images of the chest were obtained utilizing the pulmonary embolus protocol. Maximal intensity projections and sagittal and coronal reformats were viewed on an independent 3D workstation. IV contrast was administered without complication. Automated exposure control was utilized for the study. A dose lowering technique was utilized adhering to the principles of ALARA. CT DOSE: 608.42 mGy.cm FINDINGS: There is subsegmental pulmonary embolus within the anterior segment of the left upper lobe on axial image 131 of 273. Lower lobe pulmonary arteries are suboptimally assessed due to respiratory motion. No central pulmonary emboli are identified. There is no pulmonary infarct. Size the heart is normal. There is no pericardial effusion. There is no consolidation to suggest pneumonia. No suspicious lesions within the visualized bony thorax. Visualized portions of the upper abdomen demonstrate heterogeneity of the liver. The liver appears enlarged. There are multiple hypodense foci within the liver. A well-defined focus within the left lobe measures 3.2 cm. There is fullness at the gastroesophageal junction with possible adjacent stranding and possible visualized prominent gastrohepatic ligament lymph node. IMPRESSION: 1. Subsegmental pulmonary embolus within the left upper lobe, as described above. 2. Heterogeneity of the liver with multiple hypodense foci. Although partially imaged on this exam, this is worrisome for a neoplastic process such as metastatic disease. Hepatic steatosis could appear similar. A CT of the abdomen and pelvis with IV contrast is recommended. 3. Fullness at the level of the GE junction with possible adjacent stranding and prominent lymph node. This can be assessed on CT. ACT 112: Positive. There are findings on this exam that require communication between the performing entity and the patient following Patient Test Result Information Act ([place] Act 112) guidelines. Electronically signed by: Mahesh Ann M.D. 07/25/2022 2:09 PM Abdomen/Pelvis CT 07/25/22 14:43 CT OF THE ABDOMEN AND PELVIS WITH CONTRAST CLINICAL HISTORY: transaminitis, eval liver COMPARISON STUDY: CT abdomen January 16, 2015. TECHNIQUE: Following IV administration of 45 mL of Optiray, axial images of the abdomen and pelvis were obtained from the lung bases to the proximal femurs. Images were reviewed in the axial, sagittal, and coronal planes. IV contrast was administered without complication. Automated exposure control was utilized for the study. A dose lowering technique was utilized adhering to the principles of ALARA. CT DOSE: 1093.56 mGy.cm FINDINGS: No pneumatosis, free air or portal venous gas is present. The liver is enlarged, measuring 25 cm in craniocaudal dimension. There is nodularity of the liver surface. Innumerable hypodense hepatic lesions are present. Index hypodense right hepatic lobe lesion measures 6.9 x 4.7 cm. A few these lesions contain faint calcifications. There is no biliary or pancreatic ductal dilatation. Spleen, adrenal glands, right kidney and pancreas are unremarkable. There is a 7.5 cm left renal cyst. There is no hydronephrosis. There is contrast within the ureters, bladder and collecting systems from recent contrast-enhanced CT. Bladder is distended. There is no evidence for a bowel obstruction. The appendix is normal. There is mild stranding adjacent to the gastric cardia. There is a possible lesion within the distal esophagus extending into the GE junction. There are multiple enlarged gastrohepatic ligament and para-aortic lymph nodes. Index gastrohepatic ligament lymph node on image 137 of 496 measures 1.3 x 1.2 cm. Index left para-aortic lymph node image 185 measures 1.6 x 1.2 cm. IMPRESSION: 1. Enlarged liver which contains innumerable hypodense masses. The findings are highly suggestive of metastatic disease. 2. Possible distal esophageal/proximal gastric lesion with adjacent stranding and gastrohepatic and para-aortic lymphadenopathy. This may reflect the primary tumor. GI consultation for consideration for upper endoscopy is recommended. ACT 112: Negative or not required by law. Electronically signed by: Mahesh Ann M.D. 07/25/2022 4:28 PM
[2022-07-26] MEDS ORDERED: Nursing to Pharmacy Communication SCH (09:45)
--- NOTE | 2022-07-26 11:28 | Electrocardiogram Report ---
Test Reason : Blood Pressure : / mmHG Vent. Rate : 085 BPM Atrial Rate : 085 BPM P-R Int : 168 ms QRS Dur : 106 ms QT Int : 392 ms P-R-T Axes : 051 085 048 degrees QTc Int : 466 ms Sinus rhythm with Fusion complexes RSR' or QR pattern in V1 suggests right ventricular conduction delay Otherwise normal ECG When compared with ECG of 24-JAN-2019 14:32, Sinus rhythm has replaced Atrial fibrillation QT has lengthened Confirmed by Thiago Padilla ([id number]) on 07/26/2022 11:27:39 AM Referred By: REFERRED SELF Confirmed By:Solo Padilla
--- NOTE | 2022-07-26 12:16 | Anesthesiology Consultation ---
Date of Service July 26, 2022 Assessment & Plan (1) Encounter for pre-operative examination: Chart Review Chart Review: Acceptable Risk for Surgery, Patient NOT seen in Pre Admission Testing and freelance data entry initiated Consults Requested none History Surgery Operation Date: 07/26/22 16:00 Proposed Procedures p Esophagogastroduodenoscopy Dr. Johnson - Carrie Johnson Jr, MD Height/Weight Height: 6 ft Weight: 106.9 kg Allergies Allergy/AdvReac Type Severity Reaction Status Date / Time No Known Allergies Allergy Verified 07/25/22 15:50 Medications Home Medications Medication Instructions Recorded Confirmed Last Taken omeprazole magnesium 20 mg 20 mg PO QAM 01/04/19 07/25/22 07/25/22 tablet,delayed release (Prilosec OTC) methocarbamol 750 mg tablet 750 mg PO Q8H PRN pain #60 tabs 08/04/21 07/25/22 Unknown albuterol sulfate 90 mcg/actuation 2 puff inhalation QID PRN 03/23/22 07/25/22 Unknown aerosol inhaler (Proventil HFA) Shortness Of Breath #18 grams fluticasone 113 mcg-salmeterol 14 1 inh inhalation Q12H #1 ea 03/23/22 07/25/22 Unknown mcg/actuation breath activated powdr metformin 1,000 mg tablet 1,000 mg PO BID #180 tabs 03/23/22 07/25/22 07/25/22 metoprolol tartrate 100 mg tablet 100 mg PO BID #180 tabs 03/23/22 07/25/22 07/25/22 rivaroxaban 20 mg tablet 20 mg PO QPM #90 tabs 03/23/22 07/25/22 Unknown triamterene 37.5 1 tab PO DAILY #90 tabs 03/23/22 07/25/22 07/25/22 mg-hydrochlorothiazide 25 mg tablet empagliflozin 10 mg tablet 10 mg PO DAILY #30 tabs 04/05/22 07/25/22 07/25/22 (Jardiance) meclizine 25 mg tablet 25 mg PO Q6H PRN nausea and motion 04/05/22 07/25/22 Unknown sickness #60 tabs flecainide 100 mg tablet 100 mg PO BID #180 tabs 04/07/22 07/25/22 07/25/22 atorvastatin 20 mg tablet 20 mg PO QAM 07/25/22 07/25/22 07/25/22 diltiazem HCl 180 mg capsule,24 180 mg PO QAM 07/25/22 07/25/22 07/25/22 hr,extended release ibuprofen 600 mg tablet 1,500 mg PO TID PRN Pain 07/25/22 07/25/22 07/24/22 Active Medications Generic Name Dose Route Start Last Admin Trade Name Renzo PRN Reason Stop Dose Admin Diltiazem HCl 180 mg 07/26/22 09:00 07/26/22 08:30 Diltiazem Er 180 Mg Capcr PO 08/25/22 08:59 180 mg QAM BHUMIKA Administration Flecainide Acetate 100 mg 07/25/22 21:25 07/26/22 08:30 Flecainide Acetate 100 Mg Tablet PO 08/24/22 21:24 100 mg BID BHUMIKA Administration Fluticasone/Vilanterol 1 puffs 07/25/22 22:00 07/26/22 08:30 Fluticasone/Vilanterol 100/25mcg 14 Puffs/Inhaler INH 08/24/22 21:59 1 puffs DAILY BHUMIKA Administration Heparin Sodium/Dextrose 25,000 units in 500 mls @ 0 mls/hr 07/25/22 21:25 07/26/22 09:57 Heparin Sodium/Dextrose IV 08/24/22 21:24 0 units/hr .Q0M BHUMIKA 0 mls/hr Titration Protocol 0 UNITS/HR Insulin Aspart 0 units 07/25/22 21:25 07/26/22 06:28 Insulin Aspart Per Unit SC 08/24/22 21:24 3 units ACHS BHUMIKA Administration Metoprolol Tartrate 100 mg 07/25/22 21:25 07/26/22 08:30 Metoprolol Tartrate 100 Mg Tab PO 08/24/22 21:24 100 mg BID BHUMIKA Administration Pantoprazole Sodium 40 mg 07/26/22 09:00 07/26/22 08:31 Pantoprazole 40 Mg Tab PO 08/25/22 08:59 40 mg QAM BHUMIKA Administration Triamterene/Hydrochlorothiazide 1 tab 07/26/22 09:00 07/26/22 08:31 Triamterene/Hctz 37.5/25mg Tab PO 08/25/22 08:59 1 tab DAILY BHUMIKA Administration Past Medical History Medical History Asthma Cancer Chemical keratoconjunctivitis Corneal abrasion Diabetes Encounter for pre-operative examination Hyperplastic colon polyp Hypertension Laryngopharyngeal reflux Meniere's disease Obstructive sleep apnea Seizure Tubular adenoma of colon Past Family History Family History Father Cancer Colon cancer Colorectal cancer Grandmother (Maternal) Diabetes Coronary heart disease Pacemaker Grandmother (Paternal) Cancer Colorectal cancer Colorectal cancer Grandmother (Maternal) Stroke Grandfather (Paternal) Cancer Aunt Colorectal cancer Other Heart disease Hypertension Seizure Denies family history of Ovarian cancer Prostate cancer Myocardial infarction Breast cancer Past Surgical History Surgical History H/O elbow surgery Social History Smoking Status: Never smoker Hx Alcohol Use: Yes Alcohol type: beer alcohol intake frequency: a few times a month Hx Substance Use: No Physical Exam Vital Signs Last Vital Signs Temp 36.8 C 07/26/22 07:35 Pulse 76 07/26/22 07:35 Resp 16 07/26/22 07:35 BP 138/84 07/26/22 07:35 Pulse Ox 92 07/26/22 07:35 O2 Del Method 07/26/22 08:34 Testing Laboratory Results 07/26/22 05:57 07/26/22 05:57 PT 11.8 Seconds (9.0-12.0) 07/26/22 05:57 INR 1.1 (0.9-1.1) 07/26/22 05:57 APTT 44.4 Seconds (21.0-31.0) H 07/26/22 05:57 07/26/22 05:56 POC Glucose 184 H Electrocardiogram Date: 07/25/22 Test Reason : Blood Pressure : / mmHG Vent. Rate : 085 BPM Atrial Rate : 085 BPM P-R Int : 168 ms QRS Dur : 106 ms QT Int : 392 ms P-R-T Axes : 051 085 048 degrees QTc Int : 466 ms Sinus rhythm with Fusion complexes RSR' or QR pattern in V1 suggests right ventricular conduction delay Otherwise normal ECG When compared with ECG of 24-JAN-2019 14:32, Sinus rhythm has replaced Atrial fibrillation QT has lengthened Confirmed by Thiago Padilla ([id number]) on 07/26/2022 11:27:39 AM Chest X-Ray Date: 07/25/22 XR chest 1V portable CLINICAL HISTORY: Atypical chest pain. COMPARISON STUDY: Chest radiograph January 24, 2019. FINDINGS: Lung volumes are normal. No consolidation to suggest pneumonia. Linear right lower lung opacity reflects atelectasis. There is no pneumothorax or pl eural effusion. Cardiac size is normal. Mediastinal contours are normal. There is no evidence for pulmonary edema. There is an old, healed right clavicular fracture. IMPRESSION: No acute cardiopulmonary findings Other Testing 07/25/22 CT OF THE ABDOMEN AND PELVIS WITH CONTRAST CLINICAL HISTORY: transaminitis, eval liver COMPARISON STUDY: CT abdomen January 16, 2015. TECHNIQUE: Following IV administration of 45 mL of Optiray, axial images of the abdomen and pelvis were obtained from the lung bases to the proximal femurs. Images were reviewed in the axial, sagittal, and coronal planes. IV contrast was administered without complication. Automated exposure control was utilized for the study. A dose lowering technique was utilized adhering to the principles of ALARA. CT DOSE: 1093.56 mGy.cm FINDINGS: No pneumatosis, free air or portal venous gas is present. The liver is enlarged, measuring 25 cm in craniocaudal dimension. There is nodularity of the liver surface. Innumerable hypodense hepatic lesions are present. Index hypodense right hepatic lobe lesion measures 6.9 x 4.7 cm. A few these lesions contain faint calcifications. There is no biliary or pancreatic ductal dilatation. Spleen, adrenal glands, right kidney and pancreas are unremarkable. There is a 7.5 cm left renal cyst. There is no hydronephrosis. There is contrast within the ureters, bladder and collecting systems from recent contrast-enhanced CT. Bladder is distended. There is no evidence for a bowel obstruction. The appendix is normal. There is mild stranding adjacent to the gastric cardia. There is a possible lesion within the distal esophagus extending into the GE junction. There are multiple enlarged gastrohepatic ligament and para-aortic lymph nodes. Index gastrohepatic ligament lymph node on image 137 of 496 measures 1.3 x 1.2 cm. Index left para-aortic lymph node image 185 measures 1.6 x 1.2 cm. IMPRESSION: 1. Enlarged liver which contains innumerable hypodense masses. The findings are highly suggestive of metastatic disease. 2. Possible distal esophageal/proximal gastric lesion with adjacent stranding and gastrohepatic and para-aortic lymphadenopathy. This may reflect the primary tumor. GI consultation for consideration for upper endoscopy is recommended.
--- NOTE | 2022-07-26 12:58 | Hospitalist Progress Note ---
Date of Service July 26, 2022 Assessment & Plan (1) Mass of multiple sites of liver: Plan: Presumed metastatic disease. Patient was informed of this in the ER. - Patient is afebrile, hemodynamically stable, and stable on room air - No signs or symptoms to suggest acute liver failure - Patient will need continued workup for the lesions found in the liver and at the GE junction, patient would prefer to be admitted and have this done inpatient - GI consulted, appreciate recommendations, for EGD today w/ biopsies - Biopsy results will take at least 48 hours, remainder of w/u can be done as outpatient following this procedure (2) Gastric mass: Plan: - See liver masses and transaminitis - NPO today for procedure, can eat reg diet afterwards - Endorses 20 lb unintentional weight loss and feeling full with n/v - 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 - No biliary or pancreatic duct dilation noted on imaging today - See Liver masses for remainder of plan (4) Single subsegmental pulmonary embolism without acute cor pulmonale: Plan: - Patient noted to have a left upper lobe subsegmental PE - Patient has multiple risk factors right now including possible active malignancy and being off [employer] Xarelto - Current stable on RA and hemodynamically stable, no sign of heart strain of CT or ECG - While patient is stable on RA and subsegmental PE does not necessitate anticoagulation, patient has been off [employer] Xarelto for months and is high risk for further embolic events - Will start patient on heparin drip for now in case he has a procedure in the near future, would then switch patient back to [employer] Xarelto prior to discharge, h e now has a Xarelto card courtesy of the ED - Can start Xarelto this evening following EGD (5) Obesity, diabetes, and hypertension syndrome: Plan: - Continue [employer] diltiazem, triamterene-HCTZ, metoprolol - Will hold oral antihyperglycemics, - Start with correction factor of 20 and carb ratio of 7 (6) Atrial fibrillation: Plan: - Currently rate controlled, continue [employer] metoprolol, diltiazem, and flecanide - Patient was given Xarelto card by the ED, see subsegmental PE for dosing recommendations on discharge - Heparin drip for now with transition to Xarelto this evening following EGD (7) Dyslipidemia: Plan: - Hold statin with current transaminitis (8) Asthma: Plan: -breathing treatments prn Plan Plan d/w Dr. Lake. Admission and Anticipated Discharge Date Admission Date: July 25, 2022 Subjective Patient seen on daily rounds this morning. He verbalizes no complaints. He has been made NPO in anticipation of EGD which is to be done sometime today. No current c/o pain. Notes that his shortness of breath has improved. Is not requiring supplemental O2. Review of Systems Review of Systems: All systems reviewed and are unremarkable except as noted in HPI and below. Denies fever, chills, fatigue, headache, nasal congestion, sore throat, cough, chest pain, shortness of breath, palpitations, orthopnea, PND, abdominal pain, n/v/d, constipation, dysuria, hematuria, frequency, back pain, joint pain or swelling, easy bruising or bleeding, skin lesions or rashes. Physical Exam Physical Exam: GENERAL: 57 yo Well-developed, well-nourished poorly groomed WM. NAD. LUNGS: Clear to auscultation bilaterally. CARDIAC: RRR w/o m/g/r ABDOMEN: Soft, mildly ttp in epigastrium and RUQ, no rebound tenderness or gua rding. BS normoactive x 4 quad. EXTREMITIES: No edema. Non-tender. Peripheral pulses +2/4. NEUROLOGIC: A&O x3. Nonfocal PSYCHIATRIC: Cooperative. Appropriate mood and affect. SKIN: Warm, dry, intact. No rashes or lesions. Results & Data Results & Data ([facility]) Vital Signs (Past 12 Hours) Vital Signs Temp Pulse Resp BP Pulse Ox O2 Del Method 07/26/22 08:34 Room Air 07/26/22 07:35 36.8 C 76 16 138/84 92 Laboratory Results 07/26/22 05:57 07/26/22 05:57 PG Care Time/CCT Total # of Minutes Spent Total Time Spent with Patient: Total time spent is greater than 50% in coordination of care (as documented) at patient's floor/unit and/or counseling patient: Coding Level of Care Code 56825 Subseq Hosp Care Lvl 2 Diagnoses Mass of multiple sites of liver R16.0 Gastric mass K31.89 Transaminitis R74.01 Single subsegmental pulmonary embolism without acute cor pulmonale I26.93 Obesity, diabetes, and hypertension syndrome E11.69; E11.59; E66.9; I15.2 Atrial fibrillation I48.91 Dyslipidemia E78.5 Asthma J45.909
[2022-07-26] MEDS ORDERED: PROPOFOL IV EMULSION 10 MG/ML 20 ML VIAL IV ONE (13:00)
[2022-07-26] MEDS ORDERED: LIDOCAINE 2% MPF LOCAL 5 ML VIAL INFIL ONE (13:00)
--- NOTE | 2022-07-26 14:43 | Anesthesiology Progress Note ---
Date of Service July 26, 2022 Anesthesia Post Procedure Vital Signs Vital Signs: Temp Pulse Pulse Resp BP BP Pulse Ox 07/26/22 13:59 81 18 117/83 96 07/26/22 13:48 79 18 118/87 94 07/26/22 13:34 75 16 121/74 93 07/26/22 12:53 36.6 C 79 16 128/73 95 07/26/22 08:34 07/26/22 07:35 36.8 C 76 16 138/84 92 07/25/22 21:31 36.7 C 89 20 134/89 94 07/25/22 21:25 36.7 C 89 20 134/89 95 07/25/22 20:30 84 20 141/81 H 94 07/25/22 20:30 141/81 H 07/25/22 19:30 84 19 132/77 93 07/25/22 19:00 85 30 H 91 07/25/22 18:30 85 16 124/73 94 07/25/22 17:00 84 16 131/83 96 07/25/22 17:00 131/83 O2 Del Method 07/26/22 13:59 Room Air 07/26/22 13:48 Room Air 07/26/22 13:34 Room Air 07/26/22 12:53 Room Air 07/26/22 08:34 Room Air 07/26/22 07:35 07/25/22 21:31 Room Air 07/25/22 21:25 Room Air 07/25/22 20:30 07/25/22 20:30 07/25/22 19:30 07/25/22 19:00 07/25/22 18:30 07/25/22 17:00 07/25/22 17:00 Transfer of Care Handoff Completed per policy Notes Mental Status: alert / awake / arousable and participated in evaluation Patient Amnestic to Procedure: Yes Nausea / Vomiting: adequately controlled Pain: adequately controlled Airway Patency, RR, SpO2: stable & adequate BP & HR: stable & adequate Hydration State: stable & adequate Anesthetic Complications: no major complications apparent and Pt Satisfied with anesthetic care
[2022-07-26] MEDS: RIVAROXABAN 15 MG TAB PO SCH (20:54)
[2022-07-27 08:18] LABS: Basophils # (auto) 0.01 K/uL (0-0.2); Basophils % (auto) 0.1 %; Eosinophils # (auto) 0.02 K/uL (0-0.50); Eosinophils % (auto) 0.2 %; Hematocrit (blood only) 36.8 % (40.1-51.0); Hemoglobin 11.4 g/dl (14.0-18.0); Immature Granulocytes # (auto) 0.06 K/uL (0.00-0.02); Immature Granulocytes % (auto) 0.7 %; Lymphocytes # (auto) 0.73 K/uL (1.2-3.4); Lymphocytes % (auto) 7.9 %; Mean Corpuscular Hemoglobin 24.4 pg (25.0-34.0); Mean Corpuscular Volume 78.8 fL (80.0-100.0); Mean Platelet Volume 9.8 fL (9.4-12.4); Monocytes # (auto) 0.74 K/uL (0.24-0.82); Neutrophils # (auto) 7.67 K/uL (1.4-6.5); Neutrophils % (auto) 83.1 %; Platelet Count 420 K/uL (130-400); RDW Coefficient of Variation 15.5 % (11.5-14.5); RDW Standard Deviation 43.8 fL (36.4-46.3); Red Blood Count 4.67 M/uL (4.63-6.08); White Blood Count 9.23 K/ul (4.8-10.8)
[2022-07-27 08:30] LABS: INR 1.2 (0.9-1.1); Partial Thromboplastin Ratio 1.2; Prothrombin Time 12.4 Seconds (9.0-12.0)
--- NOTE | 2022-07-27 08:45 | Hospitalist Progress Note ---
Date of Service July 27, 2022 Assessment & Plan (1) Mass of multiple sites of liver: Plan: Presented with chief complaint shortness of breath, CXR negative for acute findings but CTA chest with subsegmental PEs within BRY and findings suggestive of possible malignancy/mets to liver and CTAP performed CTAP with enlarged liver with innumerable hypodense masses, along with possible distal esophageal/proximal gastric lesion with adjacent stranding of gastrohepat ic and para-aortic lymphadenopathy GI consulted s/p EGD 07/[address] Johnson partially obstructing, likely malignant esophageal tumor found in lower third of esophagus. Biopsied Clear liquid diet --> advanced to regular, tolerating well Oncology consulted per GI recs recommending bone scan given elevated ALP to look for any bony lesions also recommended checking iron panel and CEA also messaged given prior report possible port placement while inpatient Had initially planned for d/c tomorrow after bone scan but if wanting port placement inpatient will consult general surgery for tonight (of note, placed on Xarelto 15mg BID last evening for below subsegmental PEs BRY, but of note was to be on this medication for prior history paroxysmal afib). Awaiting bone scan, CEA level CEA level elevated 32.1 Consider consultation with general surgery for port placement pending response from heme/onc (2) Gastric mass: Plan: See liver masses and transaminitis . 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, s/p EGD and biopsy --> monitor/f/u heme/onc (3) Transaminitis: Plan: Likely due to the new liver lesions found on CTA of the abdomen and pelvis - No biliary or pancreatic duct dilation noted on imaging - See Liver masses for remainder of plan (4) Single subsegmental pulmonary embolism without acute cor pulmonale: Plan: Patient noted to have a left upper lobe subsegmental PE on CTA chest on admit for chief complaint shortness of breath, but had previously been rx for Xarelto for hx parosyxmal afib but coupon had per patient Heparin gtt transitioned to xarelto PO last evening 07/26 after EGD will need 15mg BID x 21 days, then decrease to 20mg once daily on 08/17 --> with good rx coupon, asked to fill and see if any issues (sent rx for DVT/PE starter pack as was to be on the 15mg daily prior that hadn't been filled) (5) Obesity, diabetes, and hypertension syndrome: Plan: Continue D[employer]ISTRY TE[employer]ER diltiazem, triamterene-HCTZ, metoprolol - Will hold oral antihyperglycemics, - Start with correction factor of 20 and carb ratio of 7 (6) Atrial fibrillation: Plan: Currently rate/rhythm controlled at times with metoprolol/diltiazem remains on fleccainde for rhythm 100mg BID - Patient was given Xarelto card by the ED, see subsegmental PE for dosing recommendations on discharge --> asked to fill new rx for xarelto starter pack as dosing would be different initially for afib vs PE/DVT dosing for first 21 days Heparin --> xarelto PM 07/26 (7) Dyslipidemia: Plan: - Hold statin with current transaminitis (8) Asthma: Plan: -breathing treatments prn (9) Hypertension: Plan: Holding triamterene-HCTZ for some minimal hydration/elevated BUN/Cr compared to day prior Also with hyponatremia Monitor /resume pending labs in AM vs reduced dose to avoid significant dehydration BP currently 108/68 Plan awaiting bone scan checking CEA/iron studies Continue Xarelto at d/c Messaged heme/onc about possible port while inpatient, would consult surgery pending Per heme/onc, if pathology confirms metastatic esophageal cancer, he would be a candidate for combined chemoimmunotherapy treatments in the palliative setting. Admission and Anticipated Discharge Date Admission Date: July 25, 2022 Supervising Physician Co-Signing Physician Notes PAM Supervision Note: I did not personally see or examine the patient today, but I verified all redd points of PAM Khan's assessment and plan with the following exceptions/additions: None Subjective Evaluated this morning, doing well. Tolerating diet Not yet seen by oncology, but discussed recommendations for bone scan prior to discharge. If able to coordinate today, possible discharge later this evening. If not, will plan for d/c after scan completed. Also added iron studies to AM labs previously, oncology requesting adding CEA given metastatic lesions on prior imaging. Previously discussed xarelto, he has good rx coupon.He notes previously had been rx for afib but coupon and unable to pick that up. Discussed having use coupon currently to see if any issues, otherwise will have CM provide additional assistance. Patient denies fever/chills, chest pain, shortness of breath, abdominal pain or nausea/vomiting at this time.Questions/concerns addressed. Review of Systems Review of Systems: All systems reviewed & are unremarkable except as noted in HPI & below Physical Exam Physical Exam: General: WD male sitting up in chair, NAD, chronically ill appearing (looks older than stated age) HEENT: head atraumatic, normocephalic, trachea midline without deviation Resp: CTAB, diminished in the bases, no w/r, on room air CV: RRR, no m/r/g, no pitting edema/calf tenderness, pulses palpable GI: +BS, mildly tender epigastric region/RUQ, no rebound or guarding : no fuller MSK/Neuro: moves all extremities, no focal deficits Psych: AOX3, pleasant and cooperative, anxious about discharge Lymph +supraclavicular lymphadenopathy Skin: warm dry, brawny appearance to skin Results & Data Results & Data ([place]) Vital Signs (Past 12 Hours) Vital Signs Temp Pulse Resp BP Pulse Ox O2 Del Method 07/27/22 07:31 36.5 C 79 16 119/73 93 07/26/22 20:49 36.7 C 90 20 124/76 93 Room Air Laboratory Results 07/27/22 07/27/22 07/27/22 Range/Units 12:13 09:55 08:18 WBC (4.8-10.8) K/ul RBC (4.63-6.08) M/uL Hgb (14.0-18.0) g/dl Hct (40.1-51.0) % MCV (80.0-100.0) fL MCH (25.0-34.0) pg MCHC (32.0-36.0) g/dL RDW Std Deviation (36.4-46.3) fL RDW Coeff of Mo (11.5-14.5) % Plt Count (130-400) K/uL MPV (9.4-12.4) fL Immature Gran % (Auto) % Neut % (Auto) % Lymph % (Auto) % Ripley % (Auto) % Eos % (Auto) % Baso % (Auto) % Neut # (Auto) (1.4-6.5) K/uL Lymph # (Auto) (1.2-3.4) K/uL Ripley # (Auto) (0.24-0.82) K/uL Eos # (Auto) (0-0.50) K/uL Baso # (Auto) (0-0.2) K/uL Immature Gran # (Auto) (0.00-0.02) K/uL PT (9.0-12.0) Seconds INR (0.9-1.1) APTT (21.0-31.0) Seconds PTT Ratio Sodium (136-145) mmol/L Potassium (3.5-5.1) mmol/L Chloride (98-107) mmol/L Carbon Dioxide (21-32) mmol/L Anion Gap (3-11) BUN (6-23) mg/dl Creatinine (0.6-1.4) mg/dl Est Cr Clr Drug Dosing ml/min Est GFR ( Amer) ml/min Est GFR (Non-Af Amer) ml/min BUN/Creatinine Ratio (10-20) Glucose (70-99(Fasting)) mg/dl POC Glucose 149 H 130 H (70-99) mg/dl Calcium (8.5-10.1) mg/dl Iron (35-175) mcg/dl TIBC (250-450) mcg/dl Unsaturated IBC (155-355) mcg/dl Transferrin % Sat (20-50) % Ferritin (8-388) ng/ml Total Bilirubin (0.2-1.0) mg/dl AST (13-39) U/L ALT (7-52) U/L Alkaline Phosphatase (34-104) U/L Total Protein (6.0-8.3) gm/dl Albumin (3.4-5.0) gm/dl Globulin (2.5-4.0) gm/dl Albumin/Globulin Ratio (0.9-2) Carcinoembryonic Ag 32.1 H (0-2.5) ng/ml 07/27/22 07/27/22 07/27/22 Range/Units 07:37 07:37 07:37 WBC (4.8-10.8) K/ul RBC (4.63-6.08) M/uL Hgb (14.0-18.0) g/dl Hct (40.1-51.0) % MCV (80.0-100.0) fL MCH (25.0-34.0) pg MCHC (32.0-36.0) g/dL RDW Std Deviation (36.4-46.3) fL RDW Coeff of Mo (11.5-14.5) % Plt Count (130-400) K/uL MPV (9.4-12.4) fL Immature Gran % (Auto) % Neut % (Auto) % Lymph % (Auto) % Ripley % (Auto) % Eos % (Auto) % Baso % (Auto) % Neut # (Auto) (1.4-6.5) K/uL Lymph # (Auto) (1.2-3.4) K/uL Ripley # (Auto) (0.24-0.82) K/uL Eos # (Auto) (0-0.50) K/uL Baso # (Auto) (0-0.2) K/uL Immature Gran # (Auto) (0.00-0.02) K/uL PT 12.4 H (9.0-12.0) Seconds INR 1.2 H (0.9-1.1) APTT 33.0 H (21.0-31.0) Seconds PTT Ratio 1.2 Sodium 134 L (136-145) mmol/L Potassium 3.9 (3.5-5.1) mmol/L Chloride 95 L (98-107) mmol/L Carbon Dioxide 29 (21-32) mmol/L Anion Gap 10 (3-11) BUN 26 H (6-23) mg/dl Creatinine 0.97 D (0.6-1.4) mg/dl Est Cr Clr Drug Dosing 107.4 ml/min Est GFR ( Amer) 100.7 ml/min Est GFR (Non-Af Amer) 86.9 ml/min BUN/Creatinine Ratio 26.8 H (10-20) Glucose 129 H (70-99(Fasting)) mg/dl POC Glucose (70-99) mg/dl Calcium 8.6 (8.5-10.1) mg/dl Iron 42 (35-175) mcg/dl TIBC 190 L (250-450) mcg/dl Unsaturated IBC 148 L (155-355) mcg/dl Transferrin % Sat 22 (20-50) % Ferritin 242.2 (8-388) ng/ml Total Bilirubin 2.3 H (0.2-1.0) mg/dl AST 88 H (13-39) U/L ALT 115 H (7-52) U/L Alkaline Phosphatase 651 H (34-104) U/L Total Protein 6.3 (6.0-8.3) gm/dl Albumin 3.4 (3.4-5.0) gm/dl Globulin 2.9 (2.5-4.0) gm/dl Albumin/Globulin Ratio 1.2 (0.9-2) Carcinoembryonic Ag (0-2.5) ng/ml 07/27/22 07/26/22 07/26/22 Range/Units 07:37 20:38 17:28 WBC 9.23 (4.8-10.8) K/ul RBC 4.67 (4.63-6.08) M/uL Hgb 11.4 L (14.0-18.0) g/dl Hct 36.8 L (40.1-51.0) % MCV 78.8 L (80.0-100.0) fL MCH 24.4 L (25.0-34.0) pg MCHC 31.0 L (32.0-36.0) g/dL RDW Std Deviation 43.8 (36.4-46.3) fL RDW Coeff of Mo 15.5 H (11.5-14.5) % Plt Count 420 H (130-400) K/uL MPV 9.8 (9.4-12.4) fL Immature Gran % (Auto) 0.7 % Neut % (Auto) 83.1 % Lymph % (Auto) 7.9 % Ripley % (Auto) 8.0 % Eos % (Auto) 0.2 % Baso % (Auto) 0.1 % Neut # (Auto) 7.67 H (1.4-6.5) K/uL Lymph # (Auto) 0.73 L (1.2-3.4) K/uL Ripley # (Auto) 0.74 (0.24-0.82) K/uL Eos # (Auto) 0.02 (0-0.50) K/uL Baso # (Auto) 0.01 (0-0.2) K/uL Immature Gran # (Auto) 0.06 H (0.00-0.02) K/uL PT (9.0-12.0) Seconds INR (0.9-1.1) APTT (21.0-31.0) Seconds PTT Ratio Sodium (136-145) mmol/L Potassium (3.5-5.1) mmol/L Chloride (98-107) mmol/L Carbon Dioxide (21-32) mmol/L Anion Gap (3-11) BUN (6-23) mg/dl Creatinine (0.6-1.4) mg/dl Est Cr Clr Drug Dosing ml/min Est GFR ( Amer) ml/min Est GFR (Non-Af Amer) ml/min BUN/Creatinine Ratio (10-20) Glucose (70-99(Fasting)) mg/dl POC Glucose 160 H 162 H (70-99) mg/dl Calcium (8.5-10.1) mg/dl Iron (35-175) mcg/dl TIBC (250-450) mcg/dl Unsaturated IBC (155-355) mcg/dl Transferrin % Sat (20-50) % Ferritin (8-388) ng/ml Total Bilirubin (0.2-1.0) mg/dl AST (13-39) U/L ALT (7-52) U/L Alkaline Phosphatase (34-104) U/L Total Protein (6.0-8.3) gm/dl Albumin (3.4-5.0) gm/dl Globulin (2.5-4.0) gm/dl Albumin/Globulin Ratio (0.9-2) Carcinoembryonic Ag (0-2.5) ng/ml PG Care Time/CCT Total # of Minutes Spent Total Time Spent with Patient: Total time spent is greater than 50% in coordination of care (as documented) at patient's floor/unit and/or counseling patient: Coding Level of Care Code 42377 Subseq Hosp Care Lvl 3 Diagnoses Mass of multiple sites of liver R16.0 Gastric mass K31.89 Transaminitis R74.01 Single subsegmental pulmonary embolism without acute cor pulmonale I26.93 Obesity, diabetes, and hypertension syndrome E11.69; E11.59; E66.9; I15.2 Atrial fibrillation I48.91 Dyslipidemia E78.5 Asthma J45.909 Hypertension I10
[2022-07-27 08:54] LABS: Albumin Globulin Ratio 1.2 (0.9-2); Albumin Level 3.4 gm/dl (3.4-5.0); BUN Creatinine Ratio 26.8 (10-20); Bilirubin,Total 2.3 mg/dl (0.2-1.0); Calcium 8.6 mg/dl (8.5-10.1); Creatinine Clr Calc Pharmacy 107.4 ml/min; Est GFR (African American) 100.7 ml/min; Est GFR (Non-African American) 86.9 ml/min; Globulin 2.9 gm/dl (2.5-4.0); Potassium 3.9 mmol/L (3.5-5.1); Total Protein 6.3 gm/dl (6.0-8.3)
--- NOTE | 2022-07-27 08:54 | Gastroenterology Progress Note ---
Date of Service July 27, 2022 Assessment & Plan (1) Gastric mass: Plan: Cancer at EG junction. Unclear which side it started on but by appearances seems to be gastric. Hopefully pathology will tell. Would suggest oncology consultation Admission and Anticipated Discharge Date Admission Date: July 25, 2022 Subjective Feeling well. Discussed findings with him but he remembers our discussion yesterday. Eating regular diet without issues. Physical Exam Constitutional: WD/WN, vitals as above no acute distress Results & Data ([facility]) Vital Signs (Past 12 Hours) Vital Signs Temp Pulse Resp BP Pulse Ox 07/27/22 07:31 36.5 C 79 16 119/73 93
--- NOTE | 2022-07-27 08:56 | Consultation Report ---
DATE OF SERVICE: 07/27/2022. REASON FOR CONSULTATION: Gastric versus esophageal carcinoma with metastasis. HISTORY OF PRESENT ILLNESS: Mr. Gama is a 57-year-old gentleman who was admitted to [facility] on 07/25/2022 after he had presented to the ED with worsening shortness of breath. CTA chest obtained on admission to rule out PE revealed segmental pulmonary embolus within the left uppe r lobe, heterogeneity of the liver with multiple hypodense foci worrisome for neoplastic process such as metastatic disease and fullness at the level of the GE junction with possible adjacent stranding and prominent lymph nodes. CT abdomen and pelvis obtained on 07/25/2022 revealed enlarged liver with innumerable hypodense masses suggestive of metastatic disease, possible distal esophageal/proximal g astric lesion with adjacent stranding and gastrohepatic and paraaortic lymphadenopathy, likely repres enting primary tumor. The patient subsequently underwent EGD yesterday, 07/26/2022 which revealed a large fungating mass with new bleeding in the lower third of the esophagus, 40-50 cm from the incisor s with the mass beginning in the esophagus and crossing the EG junction into the stomach, and closing about two-thirds of the lumen with mass partially obstructing and partially circumferential involvin g two-thirds of the lumen circumference suggestive of malignant esophageal tumor. The patient was thao bsequently placed on heparin drip for PE. ALLERGIES: No known drug allergies. HOME MEDICATIONS: 1. Omeprazole. 2. Methocarbamol. 3. Albuterol inhaler. 4. Fluticasone/salmeterol inhaler. 5. Metformin. 6. Metoprolol. 7. Rivaroxaban. 8. Triamterene/hydrochlorothiazide. 9. Jardiance. 10. Meclizine. 11. Flecainide. 12. Atorvastatin. 13. Diltiazem. 14. Ibuprofen. PAST MEDICAL HISTORY: 1. Diabetes. 2. Hypertension. 3. Meniere's disease. 4. Obstructive sleep apnea. PAST SURGICAL HISTORY: Elbow surgery. FAMILY HISTORY: Significant for colon cancer in his father, colorectal cancer in his paternal grandm other. SOCIAL HISTORY: Denies smoking. Drinks alcohol occasionally and denies illicit drug use. REVIEW OF SYSTEMS: Unremarkable except as noted in the HPI. PHYSICAL EXAMINATION: VITAL SIGNS: Blood pressure 119/73, heart rate 79, respiratory rate 16, temperature 36.7, oxygen sat uration 93% on room air. CONSTITUTIONAL: EYES: Without conjunctival erythema or icterus. RESPIRATORY: Lung sounds were generally clear bilaterally. CARDIOVASCULAR: Heart was irregularly irregular. GI: Abdomen was soft with no palpable hepatosplenomegaly. LYMPHATIC SYSTEM: No palpable peripheral lymphadenopathy. NEUROLOGIC: Negative for any focal findings. EXTREMITIES: Negative for edema or erythema. LABORATORY DATA: CBC on 07/26/2022, significant for white cell count of 11,000, hemoglobin 11.7, hem atocrit 37, MCV 77.2, platelet count 426. LFTs significant for bilirubin of 1.8, AST 79, ALT 125, al kaline phosphatase 667. IMAGING STUDIES: Chest CTA, impression: 1. Segmental pulmonary embolus within the left upper lobe. 2. Heterogeneity of the liver with multiple hypodense foci. Although partially imaged on this exam, this is worrisome for neoplastic process such as metastatic disease. Hepatic steatosis could also a ppear similar. 3. Fullness the level of the GE junction with possible adjacent stranding and prominent lymph node. CT abdomen and pelvis also on 07/25/2022, impression: 1. Enlarged liver, which contained innumerable hypodense masses. Findings are highly suggestive of metastatic disease. 2. Possible distal esophageal/proximal gastric lesion with adjacent stranding and gastrohepatic and paraaortic lymphadenopathy. This may represent a primary tumor. PATHOLOGY: Pending. ASSESSMENT AND PLAN: 1. Metastatic esophageal carcinoma. 2. Pulmonary embolus. 3. Family history of GI malignancies. 4. Abnormal LFTs. A 57-year-old gentleman who presented with shortness of breath and was incidentally found to have mul tiple liver lesions concerning for metastasis, unprovoked, left lung PE with upper endoscopy revealin g partially obstructing esophageal mass consistent with esophageal carcinoma. Although pathology is p ending, based on EGD, he most likely has metastatic esophageal carcinoma. Would recommend checking C EA, also recommend checking iron studies given microcytic anemia. If pathology confirms esophageal c arcinoma, he would be a candidate for combined chemoimmunotherapy with FOLFOX plus nivolumab, which h as been shown in multiple studies to provide PFS with advantage. He would also benefit from genetic testing given extensive family history of GI malignancies. Given elevated LFTs, especially alkaline phosphatase, would recommend obtaining a bone scan to evaluate for bone metastasis. PLAN: 1. Recommend checking iron studies, CEA. 2. Recommend obtaining a bone scan. 3. Will arrange for genetic testing upon discharge from hospital. 4. If pathology confirms metastatic esophageal cancer, he would be a candidate for combined chemoimm unotherapy treatments in the palliative setting. Thank you for this consult. Oncology will follow the patient upon discharge from hospital to start h im on systemic therapy. Please feel free to call if you have any further questions. Job ID: [id number]
[2022-07-27] MEDS: FLUTICASONE/VILANTEROL 100/25MCG 14 PUFFS/INHALER INH SCH (09:06)
[2022-07-27] MEDS: RIVAROXABAN 15 MG TAB PO SCH (09:07)
[2022-07-27] MEDS: dilTIAZem ER 180 MG CAPCR PO SCH (09:07)
[2022-07-27] MEDS: TRIAMTERENE/HCTZ 37.5/25MG TAB PO SCH (09:07)
[2022-07-27] MEDS: METOPROLOL TARTRATE 100 MG TAB PO SCH ×2 (09:08→21:13)
[2022-07-27] MEDS: FLECAINIDE ACETATE 100 MG TABLET PO SCH ×2 (09:08→21:13)
[2022-07-27] MEDS: PANTOprazole 40 MG TAB PO SCH (09:09)
[2022-07-27] MEDS: INSULIN ASPART PER UNIT SC SCH ×4 (09:13→21:02)
[2022-07-27 09:58] LABS: Ferritin 242.2 ng/ml (8-388)
[2022-07-27] MEDS: HEPARIN SODIUM/DEXTROSE 25,000 UNITS/500 ML BAG IV SCH (21:01)
[2022-07-28 04:08] LABS: Hematocrit (blood only) 35.4 % (40.1-51.0); Hemoglobin 11.2 g/dl (14.0-18.0); Mean Corpuscular Hemoglobin 24.3 pg (25.0-34.0); Mean Corpuscular Hgb Conc 31.6 g/dL (32.0-36.0); Mean Corpuscular Volume 76.8 fL (80.0-100.0); Mean Platelet Volume 9.7 fL (9.4-12.4); Platelet Count 429 K/uL (130-400); RDW Coefficient of Variation 15.5 % (11.5-14.5); RDW Standard Deviation 42.5 fL (36.4-46.3); Red Blood Count 4.61 M/uL (4.63-6.08); White Blood Count 8.66 K/ul (4.8-10.8)
[2022-07-28 04:24] LABS: INR 1.2 (0.9-1.1); Prothrombin Time 12.3 Seconds (9.0-12.0)
[2022-07-28 04:26] LABS: Partial Thromboplastin Ratio 1.6; Partial Thromboplastin Time 43.2 Seconds (21.0-31.0)
[2022-07-28 04:32] LABS: Albumin Globulin Ratio 1.1 (0.9-2); Albumin Level 3.2 gm/dl (3.4-5.0); BUN Creatinine Ratio 28.1 (10-20); Bilirubin,Total 2.7 mg/dl (0.2-1.0); Calcium 8.5 mg/dl (8.5-10.1); Creatinine Clr Calc Pharmacy 117.1 ml/min; Est GFR (African American) 110.8 ml/min; Est GFR (Non-African American) 95.6 ml/min; Globulin 2.8 gm/dl (2.5-4.0); Magnesium 2.3 mg/dl (1.7-2.4); Potassium 3.7 mmol/L (3.5-5.1)
[2022-07-28] MEDS: HEPARIN SODIUM/DEXTROSE 25,000 UNITS/500 ML BAG IV SCH ×3 (07:14→12:34)
--- NOTE | 2022-07-28 07:20 | Gastroenterology Progress Note ---
Date of Service July 28, 2022 Assessment & Plan (1) Gastric mass: Plan: Nothing further from GI standpoint. Will officially sign off and follow with interest Admission and Anticipated Discharge Date Admission Date: July 25, 2022 Subjective Pathology still pending. Oncology on board Results & Data ([facility]) Vital Signs (Past 12 Hours) Vital Signs Temp Pulse Resp BP Pulse Ox O2 Del Method 07/27/22 21:40 36.8 C 90 20 113/63 92 Room Air
--- NOTE | 2022-07-28 08:19 | Hospitalist Progress Note ---
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 Biopsied -- PATHOLOGY PENDING Advanced to regular, tolerating well Oncology consulted per GI recs recommending bone scan given elevated ALP to look for any bony lesions -- to be done 07/28 also recommended checking iron panel and CEA --> Iron panel without significant deficiency --> CEA elevated at 32.1 General surgery consulted for possible port-placement --> Had been placed on Xarelto evening 07/26, placed on hold and placed back on Heparin gtt to see if able to do port-placement while inpatient rather than sending patient home with Lovenox injections/bridge/port placement given acute treatment for PE and would not want to have him hold this medication. Would need to restart Xarelto dosing from start (home pack sent last night to pharmacy to cotton picker given patient initially going to be placed on for atrial fibrillation and will need the 21 days of 15mg BID dosing first. Will ask CM to rivera check as well) Dr Blum stated Dr Stanford would be the one to do the port placement and he will look at the chart and let him know his thoughts. *Holding HCTZ-triamterene given hyponatremia, placed on hold yesterday as had been trending down. Does not appear significantly volume overloaded but will monitor Plt elevated ? reactive from malignancy, PEs. Afebrile. WBC wnl. Iron studies without deficiency, will check B12/folate given anemia as well Continued inpatient stay (2) Gastric mass: Plan: See liver masses and transaminitis . 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, s/p EGD and biopsy --> monitor/f/u heme/onc (3) Transaminitis: Plan: Likely due to the new liver lesions found on CTA of the abdomen and pelvis - No biliary or pancreatic duct dilation noted on imaging - See Liver masses for remainder of plan (4) Single subsegmental pulmonary embolism without acute cor pulmonale: Plan: Patient noted to have a left upper lobe subsegmental PE on CTA chest on admit for chief complaint shortness of breath, but had previously been rx for Xarelto for hx parosyxmal afib but coupon had per patient Heparin gtt transitioned to xarelto PO evening 07/26 after EGD will need 15mg BID x 21 days, then decrease to 20mg once daily on 08/17 HOWEVER SEE ABOVE --> BACK ON HEPARIN GTT FOR NOW Will ask CM to rivera check ( dose have coupon), will need to start at beginning once placed back on (5) Obesity, diabetes, and hypertension syndrome: Plan: Continue [employer] diltiazem, metoprolol Holding triamterene-HCTZ for some mild dehydration/hyponatremia (improving since held) ISS while inpatient, BSGs acceptable (6) Atrial fibrillation: Plan: Of note, patient admitted in 2018 with afib with RVR, , per notes was recommended xarelto at THAT time when he underwent cardiovesion Patient states he had been on 20mg daily until coupons didn't work a couple months ago. ?if PEs from not being on anticoagulation, also ?from [facility] wasn't on PE/DVT dosing, but ?if best choice for patient or if developed the PEs from being off anticoagulation either way, needs treated Currently rate/rhythm controlled at times with metoprolol/diltiazem, flecainide 100mg BID Patient was given Xarelto card by the ED, see subsegmental PE for dosing recommendations on discharge --> asked to fill new rx for Xarelto starter pack as dosing would be different initially for afib vs PE/DVT dosing for first 21 days Heparin --> xarelto PM 07/26, see above back on Heparin gtt Check TSH/Ft4 as no recent value in system since 2020 (7) Dyslipidemia: Plan: - Hold statin with current transaminitis -- likely will need continued holding at discharge given elevations (8) Asthma: Plan: -breathing treatments prn, breathing stable (9) Hypertension: Plan: Holding triamterene-HCTZ for some minimal hydration/elevated BUN/Cr compared to day prior Also with hyponatremia (both improving with holding) Continues on metoprolol Consider reduced dose diuretics at discharge to prevent significant hyponatremia/dehydration/electrolyte abnormalities BP currently 118/74 compared to 106/68 yesterday morning Plan continued inpatient stay awaiting bone scan Heparin gtt for now, awaiting surgery input regarding port placement Per heme/onc, if pathology confirms metastatic esophageal cancer, he would be a candidate for combined chemoimmunotherapy treatments in the palliative setting. Admission and Anticipated Discharge Date Admission Date: July 25, 2022 Supervising Physician Co-Signing Physician Notes PA Supervision Note: I did not personally see or examine the patient today, but I verified all redd points of PAM Khan's assessment and plan with the following exceptions/additions: None Subjective Eval this morning, doing well. Eating/drinking no issue, moved bowels twice. bringing new jeans as he's been in the same since admission. No fever/chills, intermittent chest pains/shortness of breath with exertion but improved from days prior. No radiation. No abdominal pain, nausea or vomiting. Discussed bone scan for this morning, but waiting to hear back from Dr Blum if able to have one of his partners consider placement of port later this week as he will be out of town after Monday morning. Patient states he knows his dad's [employer]. Furthermore regarding the xarelto, patient had been on this regularly up until a couple months ago when the coupons didn't work and he couldn't get for 10$. Review of Systems Review of Systems: All systems reviewed & are unremarkable except as noted in HPI & below Physical Exam Physical Exam: General: WD male sitting up in chair, NAD, chronically ill appearing (looks older than stated age) HEENT: head atraumatic, normocephalic, trachea midline without deviation Resp: CTAB, diminished in the bases with associated crackles, no wheezing, on room air CV: RRR, no m/r/g, no pitting edema/calf tenderness, pulses palpable GI: +BS, +hepatomegaly, mildly tender epigastric region/RUQ, no rebound or guarding : no fuller MSK/Neuro: moves all extremities, no focal deficits Psych: AOX3, pleasant and cooperative, anxious about discharge Lymph +supraclavicular lymphadenopathy Skin: warm dry, brawny appearance to skin Results & Data Results & Data ([facility]) Vital Signs (Past 12 Hours) Vital Signs Temp Pulse Resp BP BP Pulse Ox O2 Del Method 07/28/22 07:39 36.9 C 79 16 129/74 92 Room Air 07/27/22 21:40 36.8 C 90 20 113/63 92 Room Air Laboratory Results 07/28/22 07/28/22 07/28/22 Range/Units 08:01 03:16 03:16 WBC (4.8-10.8) K/ul RBC (4.63-6.08) M/uL Hgb (14.0-18.0) g/dl Hct (40.1-51.0) % MCV (80.0-100.0) fL MCH (25.0-34.0) pg MCHC (32.0-36.0) g/dL RDW Std Deviation (36.4-46.3) fL RDW Coeff of Mo (11.5-14.5) % Plt Count (130-400) K/uL MPV (9.4-12.4) fL PT (9.0-12.0) Seconds INR (0.9-1.1) APTT 43.2 H (21.0-31.0) Seconds PTT Ratio 1.6 Sodium 134 L (136-145) mmol/L Potassium 3.7 (3.5-5.1) mmol/L Chloride 95 L (98-107) mmol/L Carbon Dioxide 28 (21-32) mmol/L Anion Gap 11 (3-11) BUN 25 H (6-23) mg/dl Creatinine 0.89 (0.6-1.4) mg/dl Est Cr Clr Drug Dosing 117.1 ml/min Est GFR ( Amer) 110.8 ml/min Est GFR (Non-Af Amer) 95.6 ml/min BUN/Creatinine Ratio 28.1 H (10-20) Glucose 136 H (70-99(Fasting)) mg/dl POC Glucose 159 H (70-99) mg/dl Calcium 8.5 (8.5-10.1) mg/dl Magnesium 2.3 (1.7-2.4) mg/dl Iron (35-175) mcg/dl TIBC (250-450) mcg/dl Unsaturated IBC (155-355) mcg/dl Transferrin % Sat (20-50) % Ferritin (8-388) ng/ml Total Bilirubin 2.7 H (0.2-1.0) mg/dl AST 140 H (13-39) U/L ALT 144 H (7-52) U/L Alkaline Phosphatase 717 H (34-104) U/L Total Protein 6.0 (6.0-8.3) gm/dl Albumin 3.2 L (3.4-5.0) gm/dl Globulin 2.8 (2.5-4.0) gm/dl Albumin/Globulin Ratio 1.1 (0.9-2) Carcinoembryonic Ag (0-2.5) ng/ml FISH Oncology IHC Stain and Interp [facility] 07/28/22 07/28/22 07/27/22 Range/Units 03:16 03:16 20:55 WBC 8.66 (4.8-10.8) K/ul RBC 4.61 L (4.63-6.08) M/uL Hgb 11.2 L (14.0-18.0) g/dl Hct 35.4 L (40.1-51.0) % MCV 76.8 L (80.0-100.0) fL MCH 24.3 L (25.0-34.0) pg MCHC 31.6 L (32.0-36.0) g/dL RDW Std Deviation 42.5 (36.4-46.3) fL RDW Coeff of Mo 15.5 H (11.5-14.5) % Plt Count 429 H (130-400) K/uL MPV 9.7 (9.4-12.4) fL PT 12.3 H (9.0-12.0) Seconds INR 1.2 H (0.9-1.1) APTT (21.0-31.0) Seconds PTT Ratio Sodium (136-145) mmol/L Potassium (3.5-5.1) mmol/L Chloride (98-107) mmol/L Carbon Dioxide (21-32) mmol/L Anion Gap (3-11) BUN (6-23) mg/dl Creatinine (0.6-1.4) mg/dl Est Cr Clr Drug Dosing ml/min Est GFR ( Amer) ml/min Est GFR (Non-Af Amer) ml/min BUN/Creatinine Ratio (10-20) Glucose (70-99(Fasting)) mg/dl POC Glucose 147 H (70-99) mg/dl Calcium (8.5-10.1) mg/dl Magnesium (1.7-2.4) mg/dl Iron (35-175) mcg/dl TIBC (250-450) mcg/dl Unsaturated IBC (155-355) mcg/dl Transferrin % Sat (20-50) % Ferritin (8-388) ng/ml Total Bilirubin (0.2-1.0) mg/dl AST (13-39) U/L ALT (7-52) U/L Alkaline Phosphatase (34-104) U/L Total Protein (6.0-8.3) gm/dl Albumin (3.4-5.0) gm/dl Globulin (2.5-4.0) gm/dl Albumin/Globulin Ratio (0.9-2) Carcinoembryonic Ag (0-2.5) ng/ml FISH Oncology IHC Stain and [facility] Pathology Test 07/27/22 07/27/22 07/27/22 Range/Units 17:07 12:13 09:55 WBC (4.8-10.8) K/ul RBC (4.63-6.08) M/uL Hgb (14.0-18.0) g/dl Hct (40.1-51.0) % MCV (80.0-100.0) fL MCH (25.0-34.0) pg MCHC (32.0-36.0) g/dL RDW Std Deviation (36.4-46.3) fL RDW Coeff of Mo (11.5-14.5) % Plt Count (130-400) K/uL MPV (9.4-12.4) fL PT (9.0-12.0) Seconds INR (0.9-1.1) APTT (21.0-31.0) Seconds PTT Ratio Sodium (136-145) mmol/L Potassium (3.5-5.1) mmol/L Chloride (98-107) mmol/L Carbon Dioxide (21-32) mmol/L Anion Gap (3-11) BUN (6-23) mg/dl Creatinine (0.6-1.4) mg/dl Est Cr Clr Drug Dosing ml/min Est GFR ( Amer) ml/min Est GFR (Non-Af Amer) ml/min BUN/Creatinine Ratio (10-20) Glucose (70-99(Fasting)) mg/dl POC Glucose 119 H 149 H (70-99) mg/dl Calcium (8.5-10.1) mg/dl Magnesium (1.7-2.4) mg/dl Iron (35-175) mcg/dl TIBC (250-450) mcg/dl Unsaturated IBC (155-355) mcg/dl Transferrin % Sat (20-50) % Ferritin (8-388) ng/ml Total Bilirubin (0.2-1.0) mg/dl AST (13-39) U/L ALT (7-52) U/L Alkaline Phosphatase (34-104) U/L Total Protein (6.0-8.3) gm/dl Albumin (3.4-5.0) gm/dl Globulin (2.5-4.0) gm/dl Albumin/Globulin Ratio (0.9-2) Carcinoembryonic Ag 32.1 H (0-2.5) ng/ml FISH Oncology IHC Stain and Interp [facility] 07/27/22 07/27/22 07/26/22 Range/Units 07:37 07:37 Unknown WBC (4.8-10.8) K/ul RBC (4.63-6.08) M/uL Hgb (14.0-18.0) g/dl Hct (40.1-51.0) % MCV (80.0-100.0) fL MCH (25.0-34.0) pg MCHC (32.0-36.0) g/dL RDW Std Deviation (36.4-46.3) fL RDW Coeff of Mo (11.5-14.5) % Plt Count (130-400) K/uL MPV (9.4-12.4) fL PT (9.0-12.0) Seconds INR (0.9-1.1) APTT (21.0-31.0) Seconds PTT Ratio Sodium (136-145) mmol/L Potassium (3.5-5.1) mmol/L Chloride (98-107) mmol/L Carbon Dioxide (21-32) mmol/L Anion Gap (3-11) BUN (6-23) mg/dl Creatinine (0.6-1.4) mg/dl Est Cr Clr Drug Dosing ml/min Est GFR ( Amer) ml/min Est GFR (Non-Af Amer) ml/min BUN/Creatinine Ratio (10-20) Glucose (70-99(Fasting)) mg/dl POC Glucose (70-99) mg/dl Calcium (8.5-10.1) mg/dl Magnesium (1.7-2.4) mg/dl Iron 42 (35-175) mcg/dl TIBC 190 L (250-450) mcg/dl Unsaturated IBC 148 L (155-355) mcg/dl Transferrin % Sat 22 (20-50) % Ferritin 242.2 (8-388) ng/ml Total Bilirubin (0.2-1.0) mg/dl AST (13-39) U/L ALT (7-52) U/L Alkaline Phosphatase 651 H (34-104) U/L Total Protein (6.0-8.3) gm/dl Albumin (3.4-5.0) gm/dl Globulin (2.5-4.0) gm/dl Albumin/Globulin Ratio (0.9-2) Carcinoembryonic Ag (0-2.5) ng/ml FISH Oncology Pending IHC Stain and Interp Pending [facility] Pending PG Care Time/CCT Total # of Minutes Spent Total Time Spent with Patient: Total time spent is greater than 50% in coordination of care (as documented) at patient's floor/unit and/or counseling patient: Coding Level of Care Code 86803 Subseq Hosp Care Lvl 3 Diagnoses Mass of multiple sites of liver R16.0 Gastric mass K31.89 Transaminitis R74.01 Single subsegmental pulmonary embolism without acute cor pulmonale I26.93 Obesity, diabetes, and hypertension syndrome E11.69; E11.59; E66.9; I15.2 Atrial fibrillation I48.91 Dyslipidemia E78.5 Asthma J45.909 Hypertension I10
[2022-07-28] MEDS: dilTIAZem ER 180 MG CAPCR PO SCH (08:32)
[2022-07-28] MEDS: FLECAINIDE ACETATE 100 MG TABLET PO SCH ×2 (08:32→20:42)
[2022-07-28] MEDS: METOPROLOL TARTRATE 100 MG TAB PO SCH ×2 (08:33→20:42)
[2022-07-28] MEDS: FLUTICASONE/VILANTEROL 100/25MCG 14 PUFFS/INHALER INH SCH (08:33)
[2022-07-28] MEDS: PANTOprazole 40 MG TAB PO SCH (08:34)
[2022-07-28] MEDS: INSULIN ASPART PER UNIT SC SCH ×4 (08:46→21:56)
[2022-07-28 11:39] LABS: Partial Thromboplastin Ratio 1.3
--- NOTE | 2022-07-28 11:44 | Nuclear Medicine Report ---
NM bone scan whole body CLINICAL HISTORY: Esophageal/gastric tumor. Evaluate for metastatic disease. COMPARISON STUDY: CT of the chest, abdomen and pelvis July 25, 2022. TECHNIQUE: 25.7 mCi of technetium 99m MDP was injected IV at 7:20 AM on July 28, 2022. 3 hours fo llowing injection, whole body imaging was performed in the anterior and posterior projections. FINDINGS: Expected soft tissue and renal uptake is present. A photopenic defect within the left kidne y is due to a renal cyst shown on CT. Uptake within the shoulders and sternoclavicular joints is dege nerative. There are no suspicious foci of radiotracer uptake to suggest metastatic disease. IMPRESSION: No evidence of skeletal metastatic disease. ACT 112: Negative or not required by law. Electronically signed by: Mahesh Ann M.D. 07/28/2022 11:43 AM
[2022-07-28] MEDS ORDERED: HEPARIN IV BOLUS 4,000 UNITS in SYRINGE 0 ML IV ONE (11:49)
[2022-07-28 12:12] LABS: Folate (Folic Acid) 8.81 ng/ml (>5.38)
[2022-07-28] MEDS: ENOXAPARIN 100 MG/1ML SYR SQ SCH (18:36)
[2022-07-29 07:41] LABS: Basophils # (auto) 0.02 K/uL (0-0.2); Basophils % (auto) 0.2 %; Eosinophils # (auto) 0.05 K/uL (0-0.50); Eosinophils % (auto) 0.5 %; Hematocrit (blood only) 36.4 % (40.1-51.0); Hemoglobin 11.4 g/dl (14.0-18.0); Immature Granulocytes # (auto) 0.06 K/uL (0.00-0.02); Immature Granulocytes % (auto) 0.6 %; Lymphocytes # (auto) 0.76 K/uL (1.2-3.4); Lymphocytes % (auto) 7.9 %; Mean Corpuscular Hemoglobin 24.3 pg (25.0-34.0); Mean Corpuscular Hgb Conc 31.3 g/dL (32.0-36.0); Mean Corpuscular Volume 77.6 fL (80.0-100.0); Mean Platelet Volume 9.6 fL (9.4-12.4); Monocytes # (auto) 0.85 K/uL (0.24-0.82); Monocytes % (auto) 8.9 %; Neutrophils # (auto) 7.82 K/uL (1.4-6.5); Neutrophils % (auto) 81.9 %; Platelet Count 431 K/uL (130-400); RDW Coefficient of Variation 15.6 % (11.5-14.5); RDW Standard Deviation 42.9 fL (36.4-46.3); Red Blood Count 4.69 M/uL (4.63-6.08); White Blood Count 9.56 K/ul (4.8-10.8)
[2022-07-29 07:50] LABS: INR 1.1 (0.9-1.1); Prothrombin Time 11.7 Seconds (9.0-12.0)
[2022-07-29 08:21] LABS: Albumin Globulin Ratio 1.2 (0.9-2); Albumin Level 3.4 gm/dl (3.4-5.0); BUN Creatinine Ratio 23.1 (10-20); Bilirubin,Total 3.7 mg/dl (0.2-1.0); Calcium 8.6 mg/dl (8.5-10.1); Creatinine Clr Calc Pharmacy 133.6 ml/min; Est GFR (Non-African American) 100.9 ml/min; Globulin 2.9 gm/dl (2.5-4.0); Magnesium 2.3 mg/dl (1.7-2.4); Potassium 3.6 mmol/L (3.5-5.1); Total Protein 6.3 gm/dl (6.0-8.3)
--- NOTE | 2022-07-29 08:37 | Hospitalist Progress Note ---
Date of Service July 29, 2022 Assessment & Plan Admission and Anticipated Discharge Date Admission Date: July 25, 2022 Results & Data Results & Data ([facility]) Vital Signs (Past 12 Hours) Vital Signs Temp Pulse Resp BP Pulse Ox O2 Del Method 07/29/22 08:00 36.5 C 81 16 133/76 93 Room Air 07/28/22 21:30 37.1 C 83 18 127/76 93 Room Air Laboratory Results 07/29/22 07/29/22 07/29/22 Range/Units 07:55 07:15 07:15 WBC (4.8-10.8) K/ul RBC (4.63-6.08) M/uL Hgb (14.0-18.0) g/dl Hct (40.1-51.0) % MCV (80.0-100.0) fL MCH (25.0-34.0) pg MCHC (32.0-36.0) g/dL RDW Std Deviation (36.4-46.3) fL RDW Coeff of Mo (11.5-14.5) % Plt Count (130-400) K/uL MPV (9.4-12.4) fL Immature Gran % (Auto) % Neut % (Auto) % Lymph % (Auto) % Baldwin % (Auto) % Eos % (Auto) % Baso % (Auto) % Neut # (Auto) (1.4-6.5) K/uL Lymph # (Auto) (1.2-3.4) K/uL Baldwin # (Auto) (0.24-0.82) K/uL Eos # (Auto) (0-0.50) K/uL Baso # (Auto) (0-0.2) K/uL Immature Gran # (Auto) (0.00-0.02) K/uL PT 11.7 (9.0-12.0) Seconds INR 1.1 (0.9-1.1) APTT (21.0-31.0) Seconds PTT Ratio Sodium 131 L (136-145) mmol/L Potassium 3.6 (3.5-5.1) mmol/L Chloride 94 L (98-107) mmol/L Carbon Dioxide 28 (21-32) mmol/L Anion Gap 9 (3-11) BUN 18 (6-23) mg/dl Creatinine 0.78 (0.6-1.4) mg/dl Est Cr Clr Drug Dosing 133.6 ml/min Est GFR ( Amer) 117.0 ml/min Est GFR (Non-Af Amer) 100.9 ml/min BUN/Creatinine Ratio 23.1 H (10-20) Glucose 142 H (70-99(Fasting)) mg/dl POC Glucose 139 H (70-99) mg/dl Calcium 8.6 (8.5-10.1) mg/dl Magnesium 2.3 (1.7-2.4) mg/dl Total Bilirubin 3.7 H (0.2-1.0) mg/dl AST 177 H (13-39) U/L ALT 195 H (7-52) U/L Alkaline Phosphatase 759 H (34-104) U/L Total Protein 6.3 (6.0-8.3) gm/dl Albumin 3.4 (3.4-5.0) gm/dl Globulin 2.9 (2.5-4.0) gm/dl Albumin/Globulin Ratio 1.2 (0.9-2) HER-2/paula (FISH) Vitamin B12 (180-914) pg/ml Folate (>5.38) ng/ml TSH (0.300-4.500) uIu/ml 07/29/22 07/28/22 07/28/22 Range/Units 07:15 20:35 16:48 WBC 9.56 (4.8-10.8) K/ul RBC 4.69 (4.63-6.08) M/uL Hgb 11.4 L (14.0-18.0) g/dl Hct 36.4 L (40.1-51.0) % MCV 77.6 L (80.0-100.0) fL MCH 24.3 L (25.0-34.0) pg MCHC 31.3 L (32.0-36.0) g/dL RDW Std Deviation 42.9 (36.4-46.3) fL RDW Coeff of Mo 15.6 H (11.5-14.5) % Plt Count 431 H (130-400) K/uL MPV 9.6 (9.4-12.4) fL Immature Gran % (Auto) 0.6 % Neut % (Auto) 81.9 % Lymph % (Auto) 7.9 % Baldwin % (Auto) 8.9 % Eos % (Auto) 0.5 % Baso % (Auto) 0.2 % Neut # (Auto) 7.82 H (1.4-6.5) K/uL Lymph # (Auto) 0.76 L (1.2-3.4) K/uL Baldwin # (Auto) 0.85 H (0.24-0.82) K/uL Eos # (Auto) 0.05 (0-0.50) K/uL Baso # (Auto) 0.02 (0-0.2) K/uL Immature Gran # (Auto) 0.06 H (0.00-0.02) K/uL PT (9.0-12.0) Seconds INR (0.9-1.1) APTT (21.0-31.0) Seconds PTT Ratio Sodium (136-145) mmol/L Potassium (3.5-5.1) mmol/L Chloride (98-107) mmol/L Carbon Dioxide (21-32) mmol/L Anion Gap (3-11) BUN (6-23) mg/dl Creatinine (0.6-1.4) mg/dl Est Cr Clr Drug Dosing ml/min Est GFR ( Amer) ml/min Est GFR (Non-Af Amer) ml/min BUN/Creatinine Ratio (10-20) Glucose (70-99(Fasting)) mg/dl POC Glucose 160 H 153 H (70-99) mg/dl Calcium (8.5-10.1) mg/dl Magnesium (1.7-2.4) mg/dl Total Bilirubin (0.2-1.0) mg/dl AST (13-39) U/L ALT (7-52) U/L Alkaline Phosphatase (34-104) U/L Total Protein (6.0-8.3) gm/dl Albumin (3.4-5.0) gm/dl Globulin (2.5-4.0) gm/dl Albumin/Globulin Ratio (0.9-2) HER-2/paula (FISH) Vitamin B12 (180-914) pg/ml Folate (>5.38) ng/ml TSH (0.300-4.500) uIu/ml 07/28/22 07/28/22 07/28/22 Range/Units 11:54 11:03 11:03 WBC (4.8-10.8) K/ul RBC (4.63-6.08) M/uL Hgb (14.0-18.0) g/dl Hct (40.1-51.0) % MCV (80.0-100.0) fL MCH (25.0-34.0) pg MCHC (32.0-36.0) g/dL RDW Std Deviation (36.4-46.3) fL RDW Coeff of Mo (11.5-14.5) % Plt Count (130-400) K/uL MPV (9.4-12.4) fL Immature Gran % (Auto) % Neut % (Auto) % Lymph % (Auto) % Baldwin % (Auto) % Eos % (Auto) % Baso % (Auto) % Neut # (Auto) (1.4-6.5) K/uL Lymph # (Auto) (1.2-3.4) K/uL Baldwin # (Auto) (0.24-0.82) K/uL Eos # (Auto) (0-0.50) K/uL Baso # (Auto) (0-0.2) K/uL Immature Gran # (Auto) (0.00-0.02) K/uL PT (9.0-12.0) Seconds INR (0.9-1.1) APTT (21.0-31.0) Seconds PTT Ratio Sodium (136-145) mmol/L Potassium (3.5-5.1) mmol/L Chloride (98-107) mmol/L Carbon Dioxide (21-32) mmol/L Anion Gap (3-11) BUN (6-23) mg/dl Creatinine (0.6-1.4) mg/dl Est Cr Clr Drug Dosing ml/min Est GFR ( Amer) ml/min Est GFR (Non-Af Amer) ml/min BUN/Creatinine Ratio (10-20) Glucose (70-99(Fasting)) mg/dl POC Glucose 196 H (70-99) mg/dl Calcium (8.5-10.1) mg/dl Magnesium (1.7-2.4) mg/dl Total Bilirubin (0.2-1.0) mg/dl AST (13-39) U/L ALT (7-52) U/L Alkaline Phosphatase (34-104) U/L Total Protein (6.0-8.3) gm/dl Albumin (3.4-5.0) gm/dl Globulin (2.5-4.0) gm/dl Albumin/Globulin Ratio (0.9-2) HER-2/paula (FISH) Vitamin B12 708 (180-914) pg/ml Folate 8.81 (>5.38) ng/ml TSH 0.894 (0.300-4.500) uIu/ml 07/28/22 07/26/22 Range/Units 11:03 Unknown WBC (4.8-10.8) K/ul RBC (4.63-6.08) M/uL Hgb (14.0-18.0) g/dl Hct (40.1-51.0) % MCV (80.0-100.0) fL MCH (25.0-34.0) pg MCHC (32.0-36.0) g/dL RDW Std Deviation (36.4-46.3) fL RDW Coeff of Mo (11.5-14.5) % Plt Count (130-400) K/uL MPV (9.4-12.4) fL Immature Gran % (Auto) % Neut % (Auto) % Lymph % (Auto) % Baldwin % (Auto) % Eos % (Auto) % Baso % (Auto) % Neut # (Auto) (1.4-6.5) K/uL Lymph # (Auto) (1.2-3.4) K/uL Baldwin # (Auto) (0.24-0.82) K/uL Eos # (Auto) (0-0.50) K/uL Baso # (Auto) (0-0.2) K/uL Immature Gran # (Auto) (0.00-0.02) K/uL PT (9.0-12.0) Seconds INR (0.9-1.1) APTT 37.0 H (21.0-31.0) Seconds PTT Ratio 1.3 Sodium (136-145) mmol/L Potassium (3.5-5.1) mmol/L Chloride (98-107) mmol/L Carbon Dioxide (21-32) mmol/L Anion Gap (3-11) BUN (6-23) mg/dl Creatinine (0.6-1.4) mg/dl Est Cr Clr Drug Dosing ml/min Est GFR ( Amer) ml/min Est GFR (Non-Af Amer) ml/min BUN/Creatinine Ratio (10-20) Glucose (70-99(Fasting)) mg/dl POC Glucose (70-99) mg/dl Calcium (8.5-10.1) mg/dl Magnesium (1.7-2.4) mg/dl Total Bilirubin (0.2-1.0) mg/dl AST (13-39) U/L ALT (7-52) U/L Alkaline Phosphatase (34-104) U/L Total Protein (6.0-8.3) gm/dl Albumin (3.4-5.0) gm/dl Globulin (2.5-4.0) gm/dl Albumin/Globulin Ratio (0.9-2) HER-2/paula (FISH) Pending Vitamin B12 (180-914) pg/ml Folate (>5.38) ng/ml TSH (0.300-4.500) uIu/ml PG Care Time/CCT Total # of Minutes Spent Total Time Spent with Patient: Total time spent is greater than 50% in coordination of care (as documented) at patient's floor/unit and/or counseling patient: Coding
[2022-07-29] MEDS ORDERED: SODIUM CHLORIDE 0.9% 500 ML IV SCH (08:45)
[2022-07-29] MEDS: INSULIN ASPART PER UNIT SC SCH ×2 (09:09→12:53)
[2022-07-29] MEDS: METOPROLOL TARTRATE 100 MG TAB PO SCH (09:10)
[2022-07-29] MEDS: dilTIAZem ER 180 MG CAPCR PO SCH (09:10)
[2022-07-29] MEDS: FLECAINIDE ACETATE 100 MG TABLET PO SCH (09:10)
[2022-07-29] MEDS: PANTOprazole 40 MG TAB PO SCH (09:10)
[2022-07-29] MEDS: ENOXAPARIN 100 MG/1ML SYR SQ SCH (09:10)
[2022-07-29] MEDS: FLUTICASONE/VILANTEROL 100/25MCG 14 PUFFS/INHALER INH SCH (09:12)
--- NOTE | 2022-07-29 10:04 | Discharge Summary ---
Date of Service July 29, 2022 Admission HPI Per Admitting Provider Abad is a 57 year old male with a PMH significant for afib (previously on xarelto but has not been able to afford it), asthma in the setting of work exposure, hypertension, hyperlipidemia, diabetes II, HORACIO, and BPV who presented to the [facility] ED on 07/25/22 with a chief complaint of SOB. In the ED the patient was found to be afebrile, hemodynamically stable, and stable on room air. Labs were significant for a total bili of 2.5, direct bili of 1.2, AST of 112, ALT of 151, and alk phos of 645. Chest xray was negative for acute findings but CTA of the chest revealed a Subsegmental pulmonary embolus within the left upper lobe. The CTA chest was also showing concerning findings suggestive of possible malignancy/mets to the liver so a CTA of the abdomen and pelvis was also obtained. CTA of the abdomen and pelvis with contrast revealed an enlarged liver with innumerable hypodense masses. It also showed possible distal esophageal/proximal gastric lesion with adjacent stranding and gastrohepatic and para-aortic lymphadenopathy. This may reflect the primary tumor.In the ED the patient was given breathing treatments, Robitussin, 125 mg IV methylprednisone, and 1L NSS bolus. At the time of the exam the patient was sitting comfortably in bed in no acute distress with his sitting bedside. He states that he has been experiencing right upper/lower abdominal pain, epigastric pain, SOB, early satiety, and poor appetite for approximately 1-2 months. He has not been taking his [employer] Xarelto for about 1-2 months because he cannot afford it and has been unable to activate his Xarelto card. He states that he eats much less than usual as he experiences discomfort and early satiety. When asked he states that he has been having watery diarrhea for about the last 2-3 months. He denies bloody or d ark stools and describes his diarrhea as watery and brown. He has a family history of colon and recal cancer, of which, his father, paternal grandmother, and sister all from. He has had multiple colonoscopies in the past, he believes his last colonoscopy was about 2-3 years ago and remembers that they took of biopsy of "something" during the procedure.He has had an EGD in the past which revealed GERD and a hiatal hernia per the patient. The patient and his are usure of which GI group they follow with. He denies a history of frequent alcohol use, personal history of previous cancer, recreational drug use, and smoking. Admission Exam Per Admitting Provider Physical Exam: General:In no acute distress, stated age, malnourished, poor hygiene, non- toxic appearing HEENT:Normocephalic, atraumatic,tracescleral icterus, pupils around round, symmetrical, and reactive to light, dry mucus membranes, trachea midline, no thyromegaly Chest/Pulm:No respiratory distress, symmetrical chest expansion, clear breath sounds throughout Cardiac:Irregular rate and rhythm, no murmurs noted Abdomen:Obese abdomen, Negative for bruising, normoactive bowel sounds, soft, tender to palpation in the epigastric and RUQ with hepatomegaly noted Musculoskeletal:Symmetrical and without signs of acute trauma, upper and lower extremities with full ROM, no atrophy, spasticity, or flaccidity Extremities:Radial, dorsalis pedis, and posterior tibial pulses are intact and symmetrical, no edema noted in the BL LE's Skin:Warm, dry, no rashes , lesions, or scars noted Neuro:Alert and oriented to person, place, month, year, and president, no focal defects, CN II-XII tested and intact, finger to nose test negative, no tremors noted Psych:No acute distress, calm and cooperative during the exam Principal Diagnosis Gastric Mass with Metastatic Disease Discharge Exam General: WD male sitting up in chair, NAD, chronically ill appearing (looks older than stated age) HEENT: head atraumatic, normocephalic, trachea midline without deviation, trace scleral icterus Resp: CTAB, diminished in the bases with associated crackles, no wheezing, on room air 93% CV: RRR, no m/r/g, no pitting edema/calf tenderness, pulses palpable GI: +BS, +hepatomegaly, mildly tender epigastric region/RUQ, no rebound or guarding : no fuller MSK/Neuro: moves all extremities, no focal deficits Psych: AOX3, pleasant and cooperative, anxious about discharge Lymph +supraclavicular lymphadenopathy Skin: warm dry, brawny appearance to skin Discharge Data Allergies Allergy/AdvReac Type Severity Reaction Status Date / Time No Known Allergies Allergy Verified 07/25/22 15:50 Consultations 07/25/22 16:38 ED Decision to Admit Stat 07/25/22 18:13 Consult Gastroenterology Routine 07/26/22 13:52 Consult Oncology Routine 07/27/22 14:15 Consult General Surgery Routine Procedures Performed Operation Date: 07/26/22 16:00 Actual Procedures p EGD Biopsy Cytology - Carrie Johnson Jr, MD Ordered Studies Chest X-Ray 07/25/22 12:19 XR chest 1V portable CLINICAL HISTORY: Atypical chest pain. COMPARISON STUDY: Chest radiograph January 24, 2019. FINDINGS: Lung volumes are normal. No consolidation to suggest pneumonia. Linear right lower lung opacity reflects atelectasis. There is no pneumothorax or pleural effusion. Cardiac size is normal. Mediastinal contours are normal. There is no evidence for pulmonary edema. There is an old, healed right clavicular fracture. IMPRESSION: No acute cardiopulmonary findings. ACT 112: Negative or not required by law. Electronically signed by: Mahesh Ann M.D. 07/25/2022 12:43 PM Chest CTA 07/25/22 12:55 CT ANGIOGRAPHY OF THE CHEST, PULMONARY EMBOLUS PROTOCOL CLINICAL HISTORY: Shortness of breath. Evaluate for pulmonary embolus. COMPARISON STUDY: Chest radiograph performed earlier today. Chest CT December 01, 2014. CT of the abdomen January 16, 2015. TECHNIQUE: Following IV administration of 114 mL of Optiray, helical axial images of the chest were obtained utilizing the pulmonary embolus protocol. Maximal intensity projections and sagittal and coronal reformats were viewed on an independent 3D workstation. IV contrast was administered without complication. Automated exposure control was utilized for the study. A dose lowering technique was utilized adhering to the principles of ALARA. CT DOSE: 608.42 mGy.cm FINDINGS: There is subsegmental pulmonary embolus within the anterior segment of the left upper lobe on axial image 131 of 273. Lower lobe pulmonary arteries are suboptimally assessed due to respiratory motion. No central pulmonary emboli are identified. There is no pulmonary infarct. Size the heart is normal. There is no pericardial effusion. There is no consolidation to suggest pneumonia. No suspicious lesions within the visualized bony thorax. Visualized portions of the upper abdomen demonstrate heterogeneity of the liver. The liver appears enlarged. There are multiple hypodense foci within the liver. A well-defined focus within the left lobe measures 3.2 cm. There is fullness at the gastroesophageal junction with possible adjacent stranding and possible vis ualized prominent gastrohepatic ligament lymph node. IMPRESSION: 1. Subsegmental pulmonary embolus within the left upper lobe, as described above. 2. Heterogeneity of the liver with multiple hypodense foci. Although partially imaged on this exam, this is worrisome for a neoplastic process such as metastatic disease. Hepatic steatosis could appear similar. A CT of the abdomen and pelvis with IV contrast is recommended. 3. Fullness at the level of the GE junction with possible adjacent stranding and prominent lymph node. This can be assessed on CT. ACT 112: Positive. There are findings on this exam that require communication between the performing entity and the patient following Patient Test Result Information Act ([place] Act 112) guidelines. Electronically signed by: Mahseh Ann M.D. 07/25/2022 2:09 PM Abdomen/Pelvis CT 07/25/22 14:43 CT OF THE ABDOMEN AND PELVIS WITH CONTRAST CLINICAL HISTORY: transaminitis, eval liver COMPARISON STUDY: CT abdomen January 16, 2015. TECHNIQUE: Following IV administration of 45 mL of Optiray, axial images of the abdomen and pelvis were obtained from the lung bases to the proximal femurs. Images were reviewed in the axial, sagittal, and coronal planes. IV contrast was administered without complication. Automated exposure control was utilized for the study. A dose lowering technique was utilized adhering to the principles of ALARA. CT DOSE: 1093.56 mGy.cm FINDINGS: No pneumatosis, free air or portal venous gas is present. The liver is enlarged, measuring 25 cm in craniocaudal dimension. There is nodularity of the liver surface. Innumerable hypodense hepatic lesions are present. Index hypodense right hepatic lobe lesion measures 6.9 x 4.7 cm. A few these lesions contain faint calcifications. There is no biliary or pancreatic ductal dilatation. Spleen, adrenal glands, right kidney and pancreas are unremarkable. There is a 7.5 cm left renal cyst. There is no hydronephrosis. There is contrast within the ureters, bladder and collecting systems from recent contrast-enhanced CT. Bladder is distended. There is no evidence for a bowel obstruction. The appendix is normal. There is mild stranding adjacent to the gastric cardia. There is a possible lesion within the distal esophagus extending into the GE junction. There are multiple enlarged gastrohepatic ligament and para-aortic lymph nodes. Index gastrohepatic ligament lymph node on image 137 of 496 measures 1.3 x 1.2 cm. Index left para-aortic lymph node image 185 measures 1.6 x 1.2 cm. IMPRESSION: 1. Enlarged liver which contains innumerable hypodense masses. The findings are highly suggestive of metastatic disease. 2. Possible distal esophageal/proximal gastric lesion with adjacent stranding a nd gastrohepatic and para-aortic lymphadenopathy. This may reflect the primary tumor. GI consultation for consideration for upper endoscopy is recommended. ACT 112: Negative or not required by law. Electronically signed by: Mahesh Ann M.D. 07/25/2022 4:28 PM Bone Scan Nuclear Medicine 07/28/22 10:30 NM bone scan whole body CLINICAL HISTORY: Esophageal/gastric tumor. Evaluate for metastatic disease. COMPARISON STUDY: CT of the chest, abdomen and pelvis July 25, 2022. TECHNIQUE: 25.7 mCi of technetium 99m MDP was injected IV at 7:20 AM on 2021. 3 hours following injection, whole body imaging was performed in the anterior and posterior projections. FINDINGS: Expected soft tissue and renal uptake is present. A photopenic defect within the left kidney is due to a renal cyst shown on CT. Uptake within the shoulders and sternoclavicular joints is degenerative. There are no suspicious foci of radiotracer uptake to suggest metastatic disease. IMPRESSION: No evidence of skeletal metastatic disease. ACT 112: Negative or not required by law. Electronically signed by: Mahesh Ann M.D. 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 (see report) Advanced to regular, tolerating well Oncology consulted per GI recs Bone scan NEGATIVE for piper disease Iron panel without significant deficiency CEA elevated at 32.1 General surgery consulted for possible port-placement Unable to complete inpatient due to anticoagulation Multiple discussions with ultimate decision to send patient on Lovenox SQ 110 BID until evaluated by general surgery, Dr Raya, next Monday and will get instructions from them for holding Lovenox but to hold 24 hours prior to procedure and ideally wanting to start the Xarelto DVT/PE pack thereafter 15mg BID x 21 days then 20mg after (sent syringes for 120mg and instructions to waste 0.1ml rather than break two syringes) Did have CM rivera check, Lovenox 10$ copay. Xarelto coupon provided and information to get 90 day supply for 10$/month and 24$ after Follow up with heme/oncology after port placement to begin treatment *DISCONTINUED HCTZ-Triamterene to prevent worsening dehydration at discharge and BPs stable (2) Gastric mass: See liver masses and transaminitis . 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, s/p EGD and biopsy --> monitor/f/u heme/onc (3) Transaminitis: Likely due to the new liver lesions found on CTA of the abdomen and pelvis (4) Single subsegmental pulmonary embolism without acute cor pulmonale: Patient noted to have a left upper lobe subsegmental PE on CTA chest on admit for chief complaint shortness of breath, but had previously been rx for Xarelto for hx parosyxmal afib but coupon had per patient Heparin gtt transitioned to Xarelto however due to port placement decision to discharge on lovenox SQ BID and begin Xarelto after port placement All rivera checked as above for patient (5) Obesity, diabetes, and hypertension syndrome: Continued [employer] diltiazem, metoprolol DISCONTINUED triamterene-HCTZ at discharge, BP stable (6) Atrial fibrillation: Of note, patient admitted in 2018 with afib with RVR, , per notes was recommended xarelto at THAT time when he underwent cardiovesion Patient states he had been on 20mg daily until coupons didn't work a couple months ago. ?if PEs from not being on anticoagulation, also ?from malignancy Currently rate/rhythm controlled at times with metoprolol/diltiazem, flecainide 100mg BID which were continued TSH 0.894 Lovenox as above plans for Xarelto following port-placement (7) Dyslipidemia: Hold statin with current transaminitis -- likely will need continued holding at discharge given elevations Called patient to DISCONTINUE THIS MEDICATION AFTER DISCHARGE, INITIALLY NOT STOPPED ON MEDICATION LIST. MAILBOX FULL> WILL HAVE CM CALL AGAIN TOMORROW (8) Asthma: -breathing treatments prn, breathing stable (9) Hypertension: Holding triamterene-HCTZ for some minimal hydration/elevated BUN/Cr compared to day prior --> DISCONTINUED Continued metoprolol Total Time Total Time Spent Total Time Spent (In Minutes): 45 Discharge Plan Discharge Items Patient Disposition: Home - Self-Care Reason For Visit: SOB Discharge Diagnosis: Gastric Mass, Liver and Lung Metastatic Disease Goals: You have been hospitalized for an urgent problem which required surgery. During your stay at [facility], we have made an effort to correct the problem that brought you to the hospital while keeping you as comfortable as possible. Surgery and medications were used to bring your condition under control and your discharge instructions will include directions for any medications you should take after leaving the hospital. Please make sure to follow the advice of your surgeon regarding follow up with the surgeon and with your primary care provider. Activity: Resume your previous activity Non-emergency contact: Primary Care Provider, Surgeon and Oncologist Call non-emergency contact if: you have any medication questions, your symptoms worsen and your pain is not controlled Follow-up/Referrals: Praful Cordova MD [Physician] - 08/12/22 9:00 am Dejuan Raya MD, FACS [Physician] - 08/03/22 9:30 am Cesar Galvez DO [Primary Care Provider] - 08/02/22 8:00 am () Twyla Ramirez MD [Physician] - 08/01/22 7:50 am (APPT AT [facility].) Diet: Carb Consistent or DM2 and Heart Healthy Addtl Attending Provider Instructions: You were hospitalized for shortness of breath. Imaging was concerning for malignancy and GI was consulted to perform an EGD which showed a gastric mass and this was biopsied. Pathology was sent and did come back this morning as cancerous adenocarcinoma. Oncology was consulted, and they recommended a bone scan and this DID NOT show any evidence for bony disease. Your chest CT did show evidence for small subsegmental pulmonary emboli (blood clots) and this could be related to cancer or your afib as you haven't been on your Xarelto for past couple months. We have had extensive conversations with surgeon and oncology about port placement and surgery did not feel comfortable with placing this port while started on Xarelto and you have been switched to Lovenox shots which will be 110mg TWICE daily. They syringes are 120mg syringes so you will have to DISCARD 10mg (or 0.1mL on the syringe). You will continue this and have been arranged follow up with surgeon Dr Raya on 08/03 to discuss port placement. They will give you further instructions to hold Lovenox prior to them having placing the port and then Dr Ramirez from oncology is recommending starting the Xarelto which has been sent in and should be started at 15mg by mouth TWICE daily for 21 days, then decrease to 20mg daily thereafter as you were previously taking. Your HCTZ-Triamterene has been DISCONTINUED to prevent worsening dehydration. You should monitor for ANY BLEEDING in your urine or stool while on blood thinners and contact your PCP immediately if this occurs. Please follow up with your PCP in the next 7-10 days to monitor your progress. Please follow up with Dr Raya next week about port placement and then Dr Ramirez following to begin treatment. Please return to the ER with any increased shortness of breath, inability to keep up with oral intake, chest pain, uncontrolled pain or for any other issues concerning for you. Take care! Pending Studies at Discharge: Yes Studies:: HER-2/paula Stand-Alone Forms: My [facility] SNADEC, Work/School Release Medications and DC Order Prescriptions: New Xarelto DVT-PE Treat 30d Start 15 mg (42)- 20 mg (9) tablets,dose pack See Rx Instructions .ROUTE .COMPLEX Qty: 51 0RF Rx Instructions: take one-15 mg tablet twice daily for 21 days, then one-20 mg tablet once daily; must take with meal/food enoxaparin [Lovenox] 120 mg/0.8 mL syringe 120 mg subcut Q12H Qty: 24 1RF fluticasone furoate-vilanterol [Breo Ellipta] 100-25 mcg/dose Blister With Device 1 ea inhalation DAILY Qty: 60 0RF Continued albuterol sulfate [Proventil HFA] 90 mcg/actuation HFA aerosol inhaler 2 puff INHALATION QID PRN (Reason: Shortness Of Breath) Qty: 18 5RF fluticasone propion-salmeterol 113-14 mcg/actuation aerosol powdr breath activated 1 inh inhalation Q12H Qty: 1 5RF metformin 1,000 mg tablet 1,000 mg PO BID Qty: 180 3RF metoprolol tartrate 100 mg tablet 100 mg PO BID Qty: 180 3RF flecainide 100 mg tablet 100 mg PO BID Qty: 180 3RF Jardiance 10 mg tablet 10 mg PO DAILY Qty: 30 5RF meclizine 25 mg tablet 25 mg PO Q6H PRN (Reason: nausea and motion sickness) Qty: 60 5RF methocarbamol 750 mg tablet 750 mg PO Q8H PRN (Reason: pain) Qty: 60 5RF omeprazole magnesium [Prilosec OTC] 20 mg Tablet,Delayed Release (Dr/Ec) 20 mg PO QAM diltiazem HCl 180 mg capsule,extended release 24 hr 180 mg PO QAM Discontinued rivaroxaban 20 mg tablet 20 mg PO QPM Qty: 90 3RF triamterene-hydrochlorothiazid 37.5-25 mg tablet 1 tab PO DAILY Qty: 90 3RF ibuprofen 600 mg Tablet 1,500 mg PO TID PRN (Reason: Pain) Rx Instructions: Last dose @1999 last night ( 07/24) atorvastatin 20 mg tablet 20 mg PO QAM Discharge Orders: Discharge Order (Routine); Ordered 07/29/22 Ordered By: Cassie Khan Admission Data Admit Date/Time: 07/25/22 18:13 Attending Provider: Radha Campuzano Admit Provider: Gerald Stanford Primary Care Provider: Cesar Galvez Other Providers: Gerald Stanford ; Twyla Ramirez Matthew D. Other Interventions: Discharge Summary Assessment (RN) Last Done: 07/29/22 11:00 Supervising Physician Co-Signing Physician Notes PA Supervision Note: I personally saw and examined the patient. I verified all redd points and agree with PAM Khan with the following exceptions and/or additions: S-Pt denies any further shortness of breath, no chest pain. Has occasional epigastric pain. He is tolerating p.o. 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 Also found to have subsegmental PE. Work-up was expedited as an inpatient for diagnosis of cancer Discharge to home on Lovenox, port placement arranged for next week, and follow- up with oncology to begin chemotherapy. Coding Level of Care Code D/C DAY MANAGEMENT >30 MINS Diagnoses Mass of multiple sites of liver R16.0 Gastric mass K31.89 Transaminitis R74.01 Single subsegmental pulmonary embolism without acute cor pulmonale I26.93 Obesity, diabetes, and hypertension syndrome E11.69; E11.59; E66.9; I15.2 Atrial fibrillation I48.91 Dyslipidemia E78.5 Asthma J45.909 Hypertension I10
== END 2022-07-29 14:03 | disposition home or self-care (01) | DRG 374 ==
LOC: ED 11:44 → SUATTDRO 18:13 → 3W 18:13